=== PATIENT | male | born 1975 | race Caucasian/White ===

== ENCOUNTER 2017-08-25 06:34 | Emergency (ER) | payer SELFPAY ==
[~2017-08-25] VITALS: Ht 175.3 cm; Wt 117.9 kg
[~2017-08-25 06:34] MED LIST: ANTIBIOTIC; CARI250T PO; CPR500T PO; CYCL10TA9 PO; DICY20TA57 PO; HYDR-3714; HYDR1TAB PO; LRT10T; ORPH100T PO; PRD20T PO; PRM25T PO
--- OUTSIDE RECORDS SUMMARY | 2017-08-25 06:43 | XMS REPORT ---
Author Author Wes Ochoa [facility] Address [address] [place], [place] [id number] Care Team Providers Care Rotor Balancer Name Role Phone Wes Ochoa PCP Unavailable Allergies and Adverse Reactions Name Reaction Notes Raspberries Mushroom Aspirin Keflex Vistaril Bactrim DS Plan of Treatment Planned Activity Comments Planned Date Planned Time Plan/Goal recurrent UTI ELECTROCARDIOGRAM COMPLETE 04/26/2014 12:00 AM ELECTROCARDIOGRAM TRACING 04/26/2014 12:00 AM ELECTROCARDIOGRAM REPORT 04/26/2014 12:00 AM ELECTROCARDIOGRAM COMPLETE 05/10/2015 12:00 AM CARDIOVASCULAR STRESS TEST 05/10/2015 12:00 AM Medications Active Name Start Date Estimated Completion Date SIG Comments lisinopril-hydrochlorothiazide 20-12.5 mg oral tablet 12/25/2015 take 1 tablet by oral route once daily Lipitor 40 mg oral tablet 12/27/2015 03/26/2016 take 1 tablet (40 mg) by oral route once daily at bedtime for 30 days levofloxacin 500 mg oral tablet take 1 tablet (500 mg) by oral route once daily for 7 days Name Start Date Expiration Date SIG Comments Macrobid 100 mg oral capsule 01/18/2014 01/25/2014 take 1 capsule (100 mg) by oral route 2 times per day with food for 7 days metformin 1,000 mg oral tablet 01/18/2014 04/18/2014 take 1 tablet (1,000 mg) by oral route 2 times per day with morning and evening meals for 30 days lisinopril-hydrochlorothiazide 20-12.5 mg oral tablet 01/18/2014 04/18/2014 take 1 tablet by oral route once daily for 30 days Lipitor 80 mg oral tablet 01/19/2014 04/19/2014 take 1 tablet (80 mg) by oral route once daily at bedtime for 30 days Levaquin 500 mg oral tablet 02/10/2014 02/17/2014 take 1 tablet (500 mg) by oral route once daily for 7 days gentamicin 0.3 % ophthalmic drops 05/02/2015 05/09/2015 instill 1 drop into affected eye(s) by ophthalmic route every 4 hours for 7 days acyclovir 400 mg oral tablet 05/10/2015 05/17/2015 take 1 tablet by oral route 5 times a day for 7 days omeprazole 40 mg oral capsule,delayed release(DR/EC) 08/08/2015 11/06/2015 take 1 capsule by oral route daily for 30 days lisinopril-hydrochlorothiazide 20-12.5 mg oral tablet 08/08/2015 11/06/2015 take 2 tablets by oral route daily for 30 days Discontinued Name Start Date Discontinued Date SIG Comments gabapentin 300 mg oral capsule 01/18/2014 take 1 capsule by oral route daily lisinopril Oral 01/18/2014 one daily amitriptyline 50 mg oral tablet 01/18/2014 take 1 tablet (50 mg) by oral route once daily at bedtime ranitidine HCl 150 mg oral capsule 01/18/2014 take 1 capsule by oral route 2 times a day cyclobenzaprine 10 mg oral tablet 01/18/2014 take 1 tablet (10 mg) by oral route 3 times per day fenofibrate 160 mg oral tablet 01/18/2014 take 1 tablet (160 mg) by oral route once daily Cipro oral 02/23/2014 fenofibrate oral 05/02/2015 amitriptyline 50 mg oral tablet 02/10/2014 02/23/2014 take 1 tablet (50 mg) by oral route once daily at bedtime topiramate 25 mg oral tablet 02/10/2014 05/02/2015 take 1 tablet (25 mg) by oral route 2 times per day in the morning and evening for 7 days then 2 tablets (50 mg) twice a day Neurontin 300 mg oral capsule 08/24/2014 Mobic 15 mg oral tablet 08/05/2014 08/24/2014 take 1 tablet (15 mg) by oral route once daily cyclobenzaprine 10 mg oral tablet 08/05/2014 08/24/2014 take 1 tablet daily at HS prednisone 10 mg oral tablet 05/10/2015 08/08/2015 [id number](6 tabs) daily for 5 days, then 50mg for 1 day then 40mg for 1 day, then 3omg for 1 day and 20mg for 1 day then 10mg for 1 day Lipitor 20 mg oral tablet 05/16/2015 08/08/2015 take 1 tablet (20 mg) by oral route once daily at bedtime for 30 days Problem List Description Status Onset Hyperlipidemia Active Diabetes with unspecified complication, type II or unspecified type, uncontrolled Active Hypertension Active Neuropathy Active seizures Active Vital Signs Date Time BP-Sys(mm[Hg] BP-Celena(mm[Hg]) HR(bpm) RR(rpm) Temp WT HT HC BMI BSA BMI Percentile O2 Sat(%) 12/27/2015 9:58:00 AM 82 bpm 18 rpm 97.4 F 256 lbs 69 in 37.80 kg/m2 2.38 m2 97 % 12/25/2015 9:35:00 AM 144 mmHg 82 mmHg 75 bpm 18 rpm 97.8 F 256 lbs 69 in 37.8042 kg/m 2.3776 m 97 % 08/08/2015 10:26:00 AM 140 mmHg 80 mmHg 77 bpm 18 rpm 97.5 F 240.375 lbs 69 in 35.50 kg/m2 2.30 m2 96 % 05/10/2015 11:23:00 AM 132 mmHg 66 mmHg 86 bpm 18 rpm 96.8 F 234 lbs 69 in 34.5554 kg/m 2.2732 m 98 % 05/02/2015 1:34:00 PM 142 mmHg 76 mmHg 64 bpm 18 rpm 97.4 F 235.125 lbs 69 in 34.72 kg/m2 2.28 m2 98 % 02/16/2015 3:01:00 PM 130 mmHg 70 mmHg 73 bpm 18 rpm 98 F 231.125 lbs 69 in 34.1308 kg/m 2.2592 m 97 % 08/24/2014 1:44:00 PM 128 mmHg 68 mmHg 67 bpm 18 rpm 95.7 F 219.125 lbs 69 in 32.36 kg/m2 2.20 m2 97 % 08/05/2014 8:59:00 AM 124 mmHg 64 mmHg 62 bpm 18 rpm 96.7 F 227 lbs 69 in 33.5217 kg/m 2.2389 m 100 % 04/26/2014 10:53:00 AM 122 mmHg 82 mmHg 71 bpm 18 rpm 97.2 F 250.5 lbs 69 in 36.992 kg/m 2.35 m2 96 % 02/23/2014 10:00:00 AM 132 mmHg 68 mmHg 94 bpm 18 rpm 96.4 F 247.125 lbs 69 in 36.49 kg/m2 2.3361 m 98 % 02/10/2014 9:32:00 AM 128 mmHg 80 mmHg 94 bpm 20 rpm 97.1 F 245.5 lbs 69 in 36.2536 kg/m 2.33 m2 95 % 01/18/2014 8:59:00 AM 148 mmHg 84 mmHg 79 bpm 18 rpm 97.6 F 247 lbs 68 in 37.56 kg/m2 2.3185 m 96 % 02/05/2012 10:01:00 AM 120 mmHg 80 mmHg 75 bpm 18 rpm 97.4 F 253 lbs 68 in 38.4681 kg/m 2.35 m2 95 % 01/27/2012 10:44:00 AM 106 mmHg 70 mmHg 80 bpm 18 rpm 96.7 F 255 lbs 68 in 38.77 kg/m2 2.3557 m 96 % 01/22/2012 1:21:00 PM 117 mmHg 88 mmHg 104 bpm 20 rpm 97.8 F 254 lbs 68 in 38.6202 kg/m 2.35 m2 Social History Name Description Comments Tobacco Current every day smoker History of Procedures Date Ordered Description Order Status 08/08/2015 12:00 AM FIBRIN DEGRADATION QUANT Returned 12/25/2015 10:35 AM URINALYSIS AUTO W/O SCOPE Reviewed 12/25/2015 12:00 AM COMPLETE CBC W/AUTO DIFF WBC Returned 12/25/2015 12:00 AM COMPREHEN METABOLIC PANEL Returned 12/25/2015 12:00 AM LIPID PANEL Returned 12/25/2015 12:00 AM GLYCOSYLATED HEMOGLOBIN TEST Returned 12/25/2015 12:00 AM Rocephin 1 gram [facility]#[id number] Reviewed 12/25/2015 12:00 AM THER/PROPH/DIAG INJ SC/IM Reviewed 01/18/2014 12:00 AM COMPLETE CBC W/AUTO DIFF WBC Returned 01/18/2014 12:00 AM COMPREHEN METABOLIC PANEL Returned 01/18/2014 12:00 AM LIPID PANEL Returned 01/18/2014 12:00 AM Prostate Cancer Screening PSA Returned 01/18/2014 12:00 AM URINALYSIS AUTO W/SCOPE Returned 01/18/2014 12:00 AM GLYCOSYLATED HEMOGLOBIN TEST Returned 02/10/2014 12:00 AM MRI BRAIN STEM W/O & W/DYE Returned 02/23/2014 12:00 AM CHYLMD TRACH DNA AMP PROBE Returned 02/23/2014 12:00 AM N.GONORRHOEAE DNA AMP PROB Returned 02/23/2014 12:00 AM URINALYSIS AUTO W/O SCOPE Reviewed 04/26/2014 12:00 AM COMPLETE CBC W/AUTO DIFF WBC Returned 04/26/2014 12:00 AM COMPREHEN METABOLIC PANEL Returned 04/26/2014 12:00 AM CHEST X-RAY 2VW FRONTAL&LATL Returned 04/26/2014 12:00 AM ASSAY OF TROPONIN QUANT Returned 04/26/2014 12:00 AM HT MUSCLE IMAGE SPECT MULT Returned 05/10/2015 12:00 AM COMPLETE CBC W/AUTO DIFF WBC Returned 05/10/2015 12:00 AM COMPREHEN METABOLIC PANEL Returned 05/10/2015 12:00 AM GLYCOSYLATED HEMOGLOBIN TEST Returned 05/10/2015 12:00 AM ASSAY OF TROPONIN QUANT Returned 05/10/2015 12:00 AM LIPID PANEL Returned Results Summary Data and Description Results 01/30/2012 10:51 AM GLUCOSE POCT 91.0 mg/dL 01/18/2014 9:40 AM PSA TOTAL 0.410 ng/mLWBC 7.4 RBC 5.52 HGB 15.50 g/dLHCT 45.60 %MCV 83.0 fLMCH 28.10 pgMCHC 34.0 g/dLRDW CV 13.50 %MPV 10.40 fLPLT 245 % NEUT 54.50 %%LYMP 30.60 %%MONO 11.40 %%EOS 3.0 %%BASO 0.50 %#NEUT 4.01 #LYMP 2.25 #MONO 0.84 #EOS 0.22 #BASO 0.04 GLUCOSE 150.0 mg/dLSODIUM 138.0 mmol/ LPOTASSIUM 4.10 mmol/LCHLORIDE 107.0 mmol/LCO2 20.0 mmol/LBUN 12.0 mg/ dLCREATININE 0.90 mg/dLSGOT/AST 20.0 IU/LSGPT/ALT 26.0 IU/LALK PHOS 75.0 IU/ LTOTAL PROTEIN 7.50 g/dLALBUMIN 4.0 g/dLTOTAL BILI 0.50 mg/dLCALCIUM 9.0 mg/ dLeGFR >60 mL/min/1.73 [id number] YELLOW APPEARANCE CLEAR SPEC GRAV 1.020 pH 6.0 PROTEIN NEGATIVE GLUCOSE NEGATIVE KETONE NEGATIVE BILIRUBIN NEGATIVE BLOOD NEGATIVE NITRITE NEGATIVE LEUK SCREEN NEGATIVE CASTS/LPF NEGATIVE CRYSTALS NEGATIVE MUCOUS THRDS NEGATIVE BACTERIA FEW EPITH CELLS FEW SQUAMOUS TRICHOMONAS NEGATIVE YEAST NEGATIVE TRIGLYCERIDES 615.0 mg/dLCHOLESTEROL 214.0 mg/dLHDL 42.0 mg/dLLDL (CALC) INVALID MG/DLEst Avg Glucose 111.2 mg/dL 02/23/2014 10:32 AM Chlamydia trachomatis,LUC Negative Neisseria gonorrhoeae, LUC Negative 04/26/2014 11:55 AM TROPONIN-I AD <0.04 ng/mLWBC 7.0 RBC 5.41 HGB 15.40 g/ dLHCT 45.10 %MCV 83.0 fLMCH 28.50 pgMCHC 34.10 g/dLRDW CV 13.60 %MPV 10.50 fLPLT 243 %NEUT 54.40 %%LYMP 33.70 %%MONO 9.0 %%EOS 2.60 %%BASO 0.30 %#NEUT 3.82 #LYMP 2.36 #MONO 0.63 #EOS 0.18 #BASO 0.02 GLUCOSE 114.0 mg/dLSODIUM 140.0 mmol/LPOTASSIUM 4.0 mmol/LCHLORIDE 105.0 mmol/LCO2 23.0 mmol/LBUN 15.0 mg/ dLCREATININE 0.80 mg/dLSGOT/AST 17.0 IU/LSGPT/ALT 19.0 IU/LALK PHOS 71.0 IU/ LTOTAL PROTEIN 7.40 g/dLALBUMIN 4.10 g/dLTOTAL BILI 0.50 mg/dLCALCIUM 9.40 mg/ dLeGFR 60 05/10/2015 12:05 PM WBC 7.2 RBC 5.27 HGB 15.10 g/dLHCT 44.80 %MCV 85.0 fLMCH 28.70 pgMCHC 33.70 g/dLRDW CV 13.60 %MPV 10.0 fLPLT 222 %NEUT 50.50 %%LYMP 34.30 %%MONO 11.20 %%EOS 3.60 %%BASO 0.40 %#NEUT 3.65 #LYMP 2.48 #MONO 0.81 # EOS 0.26 #BASO 0.03 GLUCOSE 85.0 mg/dLSODIUM 139.0 mmol/LPOTASSIUM 4.10 mmol/ LCHLORIDE 109.0 mmol/LCO2 21.0 mmol/LBUN 13.0 mg/dLCREATININE 0.80 mg/dLSGOT/ AST 15.0 IU/LSGPT/ALT 20.0 IU/LALK PHOS 67.0 IU/LTOTAL PROTEIN 7.30 g/dLALBUMIN 4.0 g/dLTOTAL BILI 0.40 mg/dLCALCIUM 9.20 mg/dLeGFR >60 mL/min/1.73 [id number] AD <0.04 ng/mLEst Avg Glucose 131.2 mg/dL 05/15/2015 8:15 AM TRIGLYCERIDES 260.0 mg/dLCHOLESTEROL 184.0 mg/dLHDL 35.0 mg/ dLLDL (CALC) 97.0 mg/dL 08/08/2015 11:00 AM D-DIMER QUANT 0.46 12/25/2015 10:35 AM Clarity Ur cloudy Color Ur dk yellow Glucose Ur-sCnc >= 1000mg/dL Bilirub Ur Ql Strip neg Ketones Ur Ql Strip neg Sp Gr Ur Qn 1.01 Hgb Ur Ql Strip trace-lysed pH Ur-LsCnc 7.0 Prot Ur Ql Strip Trace Urobilinogen Ur- mCnc 0.2. E.U /dL Nitrite Ur Ql Strip positive WBC Est Ur Ql Strip large 12/26/2015 5:23 AM WBC 9.2 RBC 5.53 HGB 15.60 g/dLHCT 47.10 %MCV 85.0 fLMCH 28.20 pgMCHC 33.10 g/dLRDW CV 13.60 %MPV 9.90 fLPLT 253 %NEUT 56.40 %%LYMP 30.70 %%MONO 9.20 %%EOS 3.30 %%BASO 0.40 %#NEUT 5.17 #LYMP 2.81 #MONO 0.84 #EOS 0.30 #BASO 0.04 TRIGLYCERIDES 411.0 mg/dLCHOLESTEROL 211.0 mg/dLHDL 36.0 mg/ dLLDL (CALC) INVALID mg/dLGLUCOSE 116.0 mg/dLSODIUM 138.0 mmol/LPOTASSIUM 4.30 mmol/LCHLORIDE 107.0 mmol/LCO2 24.0 mmol/LBUN 15.0 mg/dLCREATININE 0.90 mg/ dLSGOT/AST 18.0 IU/LSGPT/ALT 23.0 IU/LALK PHOS 74.0 IU/LTOTAL PROTEIN 7.10 g/ dLALBUMIN 4.20 g/dLTOTAL BILI 0.40 mg/dLCALCIUM 9.20 mg/dLeGFR >60 mL/min/1.73m History Of Immunizations Not available. History of Past Illness Name Date of Onset Comments Hypertension seizures Neuropathy Hyperlipidemia Diabetes with unspecified complication, type II or unspecified type, uncontrolled Abdominal pain, RUQ Jan 22 2012 1:25PM Postoperative Follow-up: Cholecystectomy Feb 05 2012 10:06AM Biliary Dyskinesia Jan 27 2012 10:48AM Hypertension Jan 18 2014 9:01AM Hyperlipidemia, unspecified Jan 18 2014 9:01AM Dysuria Jan 18 2014 9:01AM Screening For Prostate Cancer Jan 18 2014 9:01AM Glycosuria Jan 18 2014 3:44PM Seizure Disorder Feb 10 2014 9:39AM Headache Feb 10 2014 9:39AM Dysuria Feb 23 2014 10:03AM Headache Feb 23 2014 10:03AM Fatigue Feb 23 2014 10:03AM Chest pain Apr 26 2014 10:58AM Dyspnea on exertion Apr 26 2014 10:58AM Rib pain Aug 05 2014 9:01AM Headache Aug 24 2014 1:46PM Black-out (not amnesia) Aug 24 2014 1:46PM Gastroenteritis Feb 16 2015 3:03PM Acute Bilateral Conjunctivitis May 02 2015 1:36PM Chest pain May 10 2015 11:24AM Numbness May 10 2015 11:24AM Elevated glucose May 10 2015 11:24AM Chest pain May 10 2015 3:07PM Chest pain Aug 08 2015 10:28AM Snoring Aug 08 2015 10:28AM Hypertension Dec 25 2015 9:37AM Hyperlipidemia, unspecified Dec 25 2015 9:37AM Glucosuria Dec 25 2015 9:37AM Acute cystitis with hematuria Dec 25 2015 9:37AM Payers Insurance Name Company Name Plan Name Plan Number Policy Number Policy Group Number Start Date BCBS [facility] [id number] N/A [facility] [id number] N/A [facility] Comm [id number] Saturday, 2012 [facility] Plan of [id number] N/A History of Encounters Visit Date Visit Type Provider 12/27/2015 Office visit Wes Ochoa MD 12/25/2015 Office visit Trena Walker PURCHASING ANALYST 08/08/2015 Office visit Trena Walker PURCHASING ANALYST 05/10/2015 Office visit Trena Walker PURCHASING ANALYST 05/02/2015 Office visit Trena Walker PURCHASING ANALYST 02/16/2015 Office visit Trena Walker PURCHASING ANALYST 08/24/2014 Office visit Trena Walker PURCHASING ANALYST 08/05/2014 Office visit Trena Walker PURCHASING ANALYST 04/26/2014 [facility] Oliverio Matias MD 04/26/2014 Office visit Trena Walker PURCHASING ANALYST 02/23/2014 Office visit Trena Walker PURCHASING ANALYST 02/10/2014 Office visit Leno Hernandez DO 01/18/2014 Office visit Trena Arora PURCHASING ANALYST 02/05/2012 Office visit Bryan Tracy MD 01/30/2012 [facility] Bryan Tracy MD 01/27/2012 Office visit Bryan Tracy MD 01/22/2012 Office visit Bryan Tracy MD 01/02/2012 [facility] Oliverio Matias MD 05/09/2011 [facility] Oliverio Matias MD 10/22/2010 [facility] Lashonda Abdalla MD
--- OUTSIDE RECORDS SUMMARY | 2017-08-25 06:44 | XMS REPORT ---
Author Author Arturo Benitez [facility] Address [address] [place], [place] [id number] Care Team Providers Care Perfusionist Name Role Phone Arturo Benitez PCP Unavailable Allergies and Adverse Reactions Name [...] 1 tablet by oral route once daily ibuprofen 800 mg oral tablet 05/17/2016 take 1 tablet (800 mg) by oral route 3 times per day with food [place] 10-325 mg oral tablet 08/15/2016 take 1 tablet by oral route every 6 hours as needed for pain Name Start Date Expiration Date SIG Comments [...] by oral route daily for 30 days Lipitor 40 mg oral tablet 12/27/2015 03/26/2016 take 1 tablet (40 mg) by oral route once daily at bedtime for 30 days Ambien 10 mg oral tablet 03/14/2016 05/13/2016 take 1 tablet (10 mg) by oral route once daily at bedtime for 30 days prednisone 20 mg oral tablet 05/17/2016 05/24/2016 take 2 tablets (40 mg) by oral route once daily for 7 days Discontinued Name Start Date Discontinued Date [...] prednisone 10 mg oral tablet 05/10/2015 08/08/2015 [id number](6 tabs) daily for 5 days, then 50mg for 1 day then 40mg for 1 day, then 3omg for 1 day and 20mg for 1 day then 10mg for 1 day Lipitor 20 mg oral tablet 05/16/2015 08/08/2015 take 1 tablet (20 mg) by oral route once daily at bedtime for 30 days levofloxacin 500 mg oral tablet 03/14/2016 take 1 tablet (500 mg) by oral route once daily for 7 days Problem List Description Status Onset Hyperlipidemia Active Diabetes with unspecified complication, type II or unspecified type, uncontrolled Active Hypertension Active Neuropathy Active seizures Active Vital Signs Date Time BP-Sys(mm[Hg] BP-Celena(mm[Hg]) HR(bpm) RR(rpm) Temp WT HT HC BMI BSA BMI Percentile O2 Sat(%) 08/15/2016 10:20:00 AM 144 mmHg 90 mmHg 64 bpm 18 rpm 97.6 F 266 lbs 69 in 39.28 kg/m2 2.42 m2 96 % 06/21/2016 9:47:00 AM 138 mmHg 84 mmHg 85 bpm 18 rpm 96.6 F 256 lbs 69 in 37.8042 kg/m 2.3776 m 97 % 05/17/2016 8:51:00 AM 148 mmHg 80 mmHg 72 bpm 18 rpm 97.2 F 250 lbs 69 in 36.92 kg/m2 2.35 m2 96 % 03/14/2016 2:01:00 PM 132 mmHg 84 mmHg 78 bpm 16 rpm 98.8 F 250 lbs 69 in 36.9182 kg/m 2.3496 m 95 % 02/13/2016 1:41:00 PM 150 mmHg 90 mmHg 78 bpm 18 rpm 97.1 F 252 lbs 69 in 37.21 kg/m2 2.36 m2 96 % 12/27/2015 9:58:00 AM 82 bpm 18 rpm 97.4 F 256 lbs 69 in 37.8042 kg/m 2.3776 m 97 % 12/25/2015 9:35:00 AM 144 mmHg 82 mmHg 75 bpm 18 rpm 97.8 F 256 lbs 69 in 37.80 kg/m2 2.38 m2 97 % 08/08/2015 10:26:00 AM 140 mmHg 80 mmHg 77 bpm 18 rpm 97.5 F 240.375 lbs 69 in 35.4968 kg/m 2.3039 m 96 % 05/10/2015 11:23:00 AM 132 mmHg 66 mmHg 86 bpm 18 rpm 96.8 F 234 lbs 69 in 34.56 kg/m2 2.27 m2 98 % 05/02/2015 1:34:00 PM 142 mmHg 76 mmHg 64 bpm 18 rpm 97.4 F 235.125 lbs 69 in 34.7215 kg/m 2.2786 m 98 % 02/16/2015 3:01:00 PM 130 mmHg 70 mmHg 73 bpm 18 rpm 98 F 231.125 lbs 69 in 34.13 kg/m2 2.26 m2 97 % 08/24/2014 1:44:00 PM 128 mmHg 68 mmHg 67 bpm 18 rpm 95.7 F 219.125 lbs 69 in 32.3588 kg/m 2.1997 m 97 % 08/05/2014 8:59:00 AM 124 mmHg 64 mmHg 62 bpm 18 rpm 96.7 F 227 lbs 69 in 33.52 kg/m2 2.24 m2 100 % 04/26/2014 10:53:00 AM 122 mmHg 82 mmHg 71 bpm 18 rpm 97.2 F 250.5 lbs 69 in 36.992 kg/m 2.3519 m 96 % 02/23/2014 10:00:00 AM 132 mmHg 68 mmHg 94 bpm 18 rpm 96.4 F 247.125 lbs 69 in 36.49 kg/m2 2.34 m2 98 % 02/10/2014 9:32:00 AM 128 mmHg 80 mmHg 94 bpm 20 rpm 97.1 F 245.5 lbs 69 in 36.2536 kg/m 2.3284 m 95 % 01/18/2014 8:59:00 AM 148 mmHg 84 mmHg 79 bpm 18 rpm 97.6 F 247 lbs 68 in 37.56 kg/m2 2.32 m2 96 % 02/05/2012 10:01:00 AM 120 mmHg 80 mmHg 75 bpm 18 rpm 97.4 F 253 lbs 68 in 38.4681 kg/m 2.3465 m 95 % 01/27/2012 10:44:00 AM 106 mmHg 70 mmHg 80 bpm 18 rpm 96.7 F 255 lbs 68 in 38.77 kg/m2 2.36 m2 96 % 01/22/2012 1:21:00 PM 117 mmHg 88 mmHg 104 bpm 20 rpm 97.8 F 254 lbs 68 in 38.6202 kg/m 2.3511 m Social History Name Description Comments Tobacco Current [...] Returned 12/25/2015 12:00 AM Rocephin 1 gram [facility]#[id number] Reviewed 12/25/2015 12:00 AM THER/PROPH/DIAG INJ SC/IM Reviewed 02/13/2016 12:00 AM CHEST X-RAY 2VW FRONTAL&LATL Reviewed 03/14/2016 12:00 AM X-RAY EXAM L-S SPINE 2/3 VWS Returned 01/18/2014 12:00 AM COMPLETE CBC W/AUTO DIFF [...] 0.50 mg/dLCALCIUM 9.0 mg/ dLeGFR >60 mL/min/1.73 [id number] YELLOW APPEARANCE CLEAR SPEC GRAV 1.020 pH [...] BILI 0.40 mg/dLCALCIUM 9.20 mg/dLeGFR >60 mL/min/1.73 [id number] I AD <0.04 ng/mLEst Avg Glucose 131.2 [...] cystitis with hematuria Dec 25 2015 9:37AM Thoracic back pain Feb 13 2016 1:51PM Pneumonia Feb 13 2016 1:51PM Insomnia, unspecified Mar 14 2016 2:05PM Low Back Pain Mar 14 2016 2:05PM Low Back Pain May 17 2016 8:56AM Hypertension Jun 21 2016 9:52AM Low Back Pain Jun 21 2016 9:52AM Seizure Disorder Jun 21 2016 9:52AM Low Back Pain Aug 15 2016 10:23AM Payers Insurance Name Company Name Plan Name Plan Number Policy Number Policy Group Number Start Date zzzTest Medicare A Test Medicare A [id number] N/A [facility] [id number] Saturday, 2012 [facility] Plan of [id number] N/A BCBS [facility] [id number] N/A History of Encounters Visit Date Visit Type Provider 08/15/2016 Office visit Arturo Benitez MD 07/07/2016 [facility] Daly Matias MD 06/21/2016 Office visit Arturo Benitez MD 05/17/2016 Office visit Arturo Benitez MD 05/02/2016 Hospital Oliverio Matias MD 03/14/2016 Office visit Arturo Benitez MD 02/13/2016 Office visit Arturo Benitez MD 01/08/2016 Hospital Wes Ochoa MD 12/27/2015 Office visit Wes Ochoa MD 12/25/2015 Office visit Trena Arora PHARMACY TECHNICIAN INSTRUCTOR 08/08/2015 Office visit Trena Walker PHARMACY TECHNICIAN INSTRUCTOR 05/10/2015 Office visit Trena Walker PHARMACY TECHNICIAN INSTRUCTOR 05/02/2015 Office visit Trena Walker PHARMACY TECHNICIAN INSTRUCTOR 02/16/2015 Office visit Trena Walker PHARMACY TECHNICIAN INSTRUCTOR 08/24/2014 Office visit Trena Walker PHARMACY TECHNICIAN INSTRUCTOR 08/05/2014 Office visit Trena Walker PHARMACY TECHNICIAN INSTRUCTOR 04/26/2014 [facility] Oliverio Matias MD 04/26/2014 Office visit Trena Walker PHARMACY TECHNICIAN INSTRUCTOR 02/23/2014 Office visit Trena Walker PHARMACY TECHNICIAN INSTRUCTOR 02/10/2014 Office visit Leno Hernandez DO 01/18/2014 Office visit Trena Arora PHARMACY TECHNICIAN INSTRUCTOR 02/05/2012 Office visit Bryan Tracy MD 01/30/2012 Hospital Bryan Tracy MD 01/27/2012 Office visit Bryan Tracy MD 01/22/2012 Office visit Bryan Tracy MD 01/02/2012 Hospital Oliverio Matias MD 05/09/2011 Hospital Oliverio Matias MD 10/22/2010 [facility] Lashonda Abdalla MD
--- OUTSIDE RECORDS SUMMARY | 2017-08-25 06:44 | XMS REPORT ---
Author Author Wes Ochoa [facility] Address [address] [place], [place] [id number] Care Team Providers Care Design Printing Machine Setter Name Role Phone Wes Ochoa PCP Unavailable [...] prednisone 10 mg oral tablet 05/10/2015 08/08/2015 [id number](6 tabs) daily for 5 days, then 50mg [...] Returned 12/25/2015 12:00 AM Rocephin 1 gram [facility]#[id number] Reviewed 12/25/2015 12:00 AM THER/PROPH/DIAG INJ SC/IM [...] 0.50 mg/dLCALCIUM 9.0 mg/ dLeGFR >60 mL/min/1.73 [id number] YELLOW APPEARANCE CLEAR SPEC GRAV 1.020 pH [...] BILI 0.40 mg/dLCALCIUM 9.20 mg/dLeGFR >60 mL/min/1.73 [id number] I AD <0.04 ng/mLEst Avg Glucose 131.2 [...] Number Policy Group Number Start Date BCBS [facility] [id number] N/A [facility] [id number] N/A [facility] Comm [id number] Saturday, 2012 [facility] Plan of [id number] N/A History of Encounters Visit Date Visit Type Provider 12/27/2015 Office visit Wes Ochoa MD 12/25/2015 Office visit Trena Walker ANGULAR JS DEVELOPER 08/08/2015 Office visit Trena Walker ANGULAR JS DEVELOPER 05/10/2015 Office visit Trena Walker ANGULAR JS DEVELOPER 05/02/2015 Office visit Trena Walker ANGULAR JS DEVELOPER 02/16/2015 Office visit Trena Walker ANGULAR JS DEVELOPER 08/24/2014 Office visit Trena Walker ANGULAR JS DEVELOPER 08/05/2014 Office visit Trena Walker ANGULAR JS DEVELOPER 04/26/2014 [facility] Oliverio Matias MD 04/26/2014 Office visit Trena Walker ANGULAR JS DEVELOPER 02/23/2014 Office visit Trena Walker ANGULAR JS DEVELOPER 02/10/2014 Office visit Leno Hernandez DO 01/18/2014 Office visit Trena Arora ANGULAR JS DEVELOPER 02/05/2012 Office visit Bryan Tracy MD 01/30/2012 [facility] Bryan Tracy MD 01/27/2012 Office visit Bryan Tracy MD 01/22/2012 Office visit Bryan Tracy MD 01/02/2012 [facility] Oliverio Matias MD 05/09/2011 [facility] Oliverio Matias MD 10/22/2010 [facility] Lashonda Abdalla MD
--- OUTSIDE RECORDS SUMMARY | 2017-08-25 06:45 | XMS REPORT ---
Author Author [facility] Organization [facility] Address [address] [place], [place] [id number] Care Team Providers Care Research Analyst Name Role Phone PCP Unavailable Allergies and Adverse Reactions Name Reaction Notes Raspberries Mushroom Aspirin Keflex Vistaril Bactrim DS Plan of Treatment Planned Activity Comments Planned Date Planned Time Plan/Goal GLYCOSYLATED HEMOGLOBIN TEST 05/10/2015 12:00 AM LIPID PANEL 05/10/2015 12:00 AM Medications Active Name Start Date Estimated Completion Date SIG Comments acyclovir oral tablet 400 mg 05/10/2015 05/17/2015 take 1 tablet by oral route 5 times a day for 7 days prednisone oral tablet 10 mg 05/10/2015 [id number](6 tabs) daily for 5 days, then 50mg for 1 day then 40mg for 1 day, then 3omg for 1 day and 20mg for 1 day then 10mg for 1 day Name Start Date Expiration Date SIG Comments Macrobid oral capsule 100 mg 01/18/2014 01/25/2014 take 1 capsule (100 mg) by oral route 2 times per day with food for 7 days metformin oral tablet 1,000 mg 01/18/2014 04/18/2014 take 1 tablet (1,000 mg) by oral route 2 times per day with morning and evening meals for 30 days lisinopril-hydrochlorothiazide oral tablet 20-12.5 mg 01/18/2014 04/18/2014 take 1 tablet by oral route once daily for 30 days Lipitor oral tablet 80 mg 01/19/2014 04/19/2014 take 1 tablet (80 mg) by oral route once daily at bedtime for 30 days Levaquin oral tablet 500 mg 02/10/2014 02/17/2014 take 1 tablet (500 mg) by oral route once daily for 7 days gentamicin ophthalmic drops 0.3 % 05/02/2015 05/09/2015 instill 1 drop into affected eye(s) by ophthalmic route every 4 hours for 7 days Discontinued Name Start Date Discontinued Date SIG Comments gabapentin Oral Capsule 300 mg 01/18/2014 take 1 capsule by oral route daily lisinopril Oral 01/18/2014 one daily amitriptyline Oral Tablet 50 mg 01/18/2014 take 1 tablet (50 mg) by oral route once daily at bedtime ranitidine HCl Oral Capsule 150 mg 01/18/2014 take 1 capsule by oral route 2 times a day cyclobenzaprine Oral Tablet 10 mg 01/18/2014 take 1 tablet (10 mg) by oral route 3 times per day fenofibrate Oral Tablet 160 mg 01/18/2014 take 1 tablet (160 mg) by oral route once daily Cipro oral 02/23/2014 fenofibrate oral 05/02/2015 amitriptyline oral tablet 50 mg 02/10/2014 02/23/2014 take 1 tablet (50 mg) by oral route once daily at bedtime topiramate oral tablet 25 mg 02/10/2014 05/02/2015 take 1 tablet (25 mg) by oral route 2 times per day in the morning and evening for 7 days then 2 tablets (50 mg) twice a day Neurontin oral capsule 300 mg 08/24/2014 Mobic oral tablet 15 mg 08/05/2014 08/24/2014 take 1 tablet (15 mg) by oral route once daily cyclobenzaprine oral tablet 10 mg 08/05/2014 08/24/2014 take 1 tablet daily at HS Problem List Description Status Onset Hyperlipidemia Active Diabetes with unspecified complication, type II or unspecified type, uncontrolled Active Hypertension Active Neuropathy Active seizures Active Vital Signs Date Time BP-Sys(mm[Hg] BP-Celena(mm[Hg]) HR(bpm) RR(rpm) Temp WT HT HC BMI BSA BMI Percentile O2 Sat(%) 05/10/2015 11:23:00 AM 132 mmHg 66 mmHg [...] of Procedures Date Ordered Description Order Status 01/18/2014 12:00 AM COMPLETE CBC W/AUTO DIFF WBC Returned 01/18/2014 12:00 AM COMPREHEN METABOLIC PANEL Returned 01/18/2014 12:00 AM LIPID PANEL Returned 01/18/2014 12:00 AM URINALYSIS AUTO W/SCOPE [...] COMPREHEN METABOLIC PANEL Returned 05/10/2015 12:00 AM ASSAY OF TROPONIN QUANT Returned Results Summary Data and Description Results [...] 0.50 mg/dLCALCIUM 9.0 mg/ dLeGFR >60 mL/min/1.73 [id number] YELLOW APPEARANCE CLEAR SPEC GRAV 1.020 pH 6.0 PROTEIN NEGATIVE GLUCOSE NEGATIVE KETONE NEGATIVE BILIRUBIN NEGATIVE BLOOD NEGATIVE NITRITE NEGATIVE LEUK SCREEN NEGATIVE CASTS/LPF NEGATIVE CRYSTALS NEGATIVE MUCOUS THRDS NEGATIVE BACTERIA FEW EPITH CELLS FEW SQUAMOUS TRICHOMONAS NEGATIVE YEAST NEGATIVE TRIGLYCERIDES 615.0 mg/dLCHOLESTEROL 214.0 mg/dLHDL 42.0 mg/dLLDL (CALC) INVALID MG/DLHGB A1C 5.50 % 02/23/2014 10:32 AM Chlamydia trachomatis,LUC Negative 04/26/2014 11:55 AM TROPONIN-I AD <0.04 [...] BILI 0.40 mg/dLCALCIUM 9.20 mg/dLeGFR >60 mL/min/1.73 [id number] AD <0.04 ng/mL History Of Immunizations Not available. History of [...] 11:24AM Chest pain May 10 2015 3:07PM Payers Insurance Name Company Name Plan Name Plan Number Policy Number Policy Group Number Start Date [facility] Comm [id number] Saturday, 2012 [facility] Comm Plan of [id number] N/A [facility] [id number] N/A History of Encounters Visit Date Visit Type Provider 05/10/2015 Office visit Trena Arora APRN 05/02/2015 Office visit Trena Arora APRN 02/16/2015 Office visit Trena Arora APRN 08/24/2014 Office visit Trena Arora APRN 08/05/2014 Office visit Trena Arora APRN 04/26/2014 Office visit Trena Arora APRN 04/26/2014 [facility] Oliveiro Matias MD 02/23/2014 Office visit Trena Arora EMBLEM MAKER 02/10/2014 Office visit Leno Hernandez DO 01/18/2014 Office visit Trena Arora EMBLEM MAKER 02/05/2012 Office visit Bryan Tracy MD 01/30/2012 [facility] Bryan Tracy MD 01/27/2012 Office visit Bryan Tracy MD 01/22/2012 Office visit Bryan Tracy MD 01/02/2012 [facility] Oliverio Matias MD 05/09/2011 [facility] Oliverio Matias MD 10/22/2010 [facility] Lashonda Abdalla MD
--- OUTSIDE RECORDS SUMMARY | 2017-08-25 06:46 | XMS REPORT | CCD ---
Author Author JAKY TYLER Organization Unknown Address [address] [place], [place] [id number] Care Team Providers Care Crabber Name Role Phone Wes SPENCER MD Attphys Vital Signs Vital Sign Value Unit Date/Time Recent/Initial? Weight Measured 250 lbs 01/05/2016 11:57 Initial VS Height 69 in 01/05/2016 11:57 Initial VS BMI (Body Mass Index) 36.92 kg/m^2 01/05/2016 11:57 Initial VS BSA (Body Surface Area) 2.35 m^2 01/05/2016 11:57 Initial VS BP Systolic 136 mmHg 01/08/2016 11:33 Initial VS BP Diastolic 80 mmHg 01/08/2016 11:33 Initial VS Respiratory Rate 30 bpm 01/08/2016 11:33 Initial VS Heart Rate 76 bpm 01/08/2016 11:33 Initial VS O2 % BldC Oximetry 90 % 01/08/2016 11:33 Initial VS BP Systolic 140 mmHg 01/08/2016 11:59 Most Recent VS BP Diastolic 90 mmHg 01/08/2016 11:59 Most Recent VS Respiratory Rate 20 bpm 01/08/2016 11:59 Most Recent VS Heart Rate 82 bpm 01/08/2016 11:59 Most Recent VS O2 % BldC Oximetry 95 % 01/08/2016 11:59 Most Recent VS Allergies Allergy Code Allergy Type Reaction Status CEPHALEXIN 2231 Drug allergy SOB QUIT BREATHING Active RASPBERRY 0 Food allergy Active VISTARIL 282991 Drug allergy Active KEFLEX 060791 Drug allergy Active HYDROXYZINE 5553 Drug allergy BECAME VIOLENT Active ASPIRIN 1191 Drug allergy SOB QUIT BREATHING Active blueberry {Clinical monitoring unavailable} 0 Food allergy Active mushrooms {Clinical monitoring unavailable} 0 Food allergy Active BACTRIM 071543 Drug allergy Active Procedures Procedure Code Procedure Type Date Cystourethroscopy, with calibration and/or dilation of urethral stricture 25608 CPT 01/08/2016 BEDSIDE GLUCOSE [id number] SNOMED CT 01/08/2016 History of Immunizations Immunization Code Date Influenza, seasonal, injectable 141 08/20/2013 Problems Unknown or Not Available. Results BEDSIDE GLUCOSE - Collect Date/Time: 01/08/2016 09:07 Test Name Code Test Result Test Units Test Ref Range GLUCOSE POCT 93 MG/DL L=70 H=100 Active Medications No Active Medications Medications Administered During Visit Unknown or Not Available. Encounters Encounter Diagnosis Diagnosis Code Start Date Retention of urine, unspecified R339 01/08/2016 Social History Smoking Status Code Start Date End Date Never smoker [id number] Patient Decision Aids Patient Decision Aid CYSTOSCOPY; AFTER THE PROCEDURE Discharge Instructions You were admitted to [facility] on 01/08/2016 07:58 with a principal diagnosis of Retention of urine, unspecified You had the following procedures done: Cystourethroscopy, with calibration and/or dilation of urethral stricture You had the following tests done: BEDSIDE GLUCOSE You were discharged from [facility] on 01/08/2016 12:44 Should you have any questions prior to discharge, please contact a member of your healthcare team. If you have left the hospital and have any questions, please contact your primary care physician. Chief Complaint and Reason For Visit Chief Complaint Date of Onset CYSTO RTG Function Status Unknown or Not Available. Plan of Care Unknown or Not Available. Referral/Transition of Care Unknown or Not Available.
--- OUTSIDE RECORDS SUMMARY | 2017-08-25 06:46 | XMS REPORT ---
Author Author Arturo Benitez [facility] Address [address] [place], [place] [address] Care Team Providers Care Therapeutic Recreation Assistant Name Role Phone Arturo Benitez PCP Unavailable Arturo Benitez PreferredProvider Unavailable Allergies and Adverse Reactions Name Reaction Notes Raspberries Mushroom Aspirin Keflex Vistaril Bactrim DS Plan of Treatment Planned Activity Comments Planned Date Planned Time Plan/Goal recurrent UTI 12 lead EKG 04/26/2014 12:00 AM 12 lead EKG 04/26/2014 12:00 AM 12 lead EKG 04/26/2014 12:00 AM EKG (12-lead electrocardiogram) 05/10/2015 12:00 AM Treadmill 05/10/2015 12:00 AM Medications Active Name Start Date Estimated Completion Date SIG Comments lisinopril-hydrochlorothiazide 20-12.5 mg oral tablet 12/25/2015 take 1 tablet by oral route once daily ibuprofen 800 mg oral tablet 05/17/2016 take 1 tablet (800 mg) by oral route 3 times per day with food [place] 10-325 mg oral tablet 12/11/2016 take 1 tablet by oral route every [...] prednisone 10 mg oral tablet 05/10/2015 08/08/2015 [id number](6 tabs) daily for 5 days, then 50mg [...] HC BMI BSA BMI Percentile O2 Sat(%) 12/11/2016 8:24:00 AM 132 mmHg 90 mmHg 68 bpm 18 rpm 255 lbs 69 in 37.66 kg/m2 2.37 m2 96 % 09/13/2016 9:52:00 AM 136 mmHg 86 mmHg 77 bpm 18 rpm 97.3 F 263 lbs 69 in 38.8379 kg/m 2.4099 m 96 % 08/15/2016 10:20:00 AM 144 mmHg 90 mmHg [...] Status 08/08/2015 12:00 AM FIBRIN DEGRADATION QUANT Reviewed 12/25/2015 10:35 AM URINALYSIS AUTO W/O SCOPE Reviewed 12/25/2015 12:00 AM COMPLETE CBC W/AUTO DIFF WBC Reviewed 12/25/2015 12:00 AM COMPREHEN METABOLIC PANEL Reviewed 12/25/2015 12:00 AM LIPID PANEL Reviewed 12/25/2015 12:00 AM GLYCOSYLATED HEMOGLOBIN TEST Reviewed 12/25/2015 12:00 AM Rocephin 1 gram [facility]#[id number] Reviewed 12/25/2015 12:00 AM THER/PROPH/DIAG INJ SC/IM Reviewed 02/13/2016 12:00 AM CHEST X-RAY 2VW FRONTAL&LATL Reviewed 03/14/2016 12:00 AM X-RAY EXAM L-S SPINE 2/3 VWS Returned 01/18/2014 12:00 AM COMPLETE CBC W/AUTO DIFF WBC Reviewed 01/18/2014 12:00 AM COMPREHEN METABOLIC PANEL Reviewed 01/18/2014 12:00 AM LIPID PANEL Reviewed 01/18/2014 12:00 AM Prostate Cancer Screening PSA Reviewed 01/18/2014 12:00 AM URINALYSIS AUTO W/SCOPE Reviewed 01/18/2014 12:00 AM GLYCOSYLATED HEMOGLOBIN TEST Reviewed 02/10/2014 12:00 AM MRI BRAIN STEM W/O & W/DYE Reviewed 02/23/2014 12:00 AM CHYLMD TRACH DNA AMP PROBE Reviewed 02/23/2014 12:00 AM N.GONORRHOEAE DNA AMP PROB Reviewed 02/23/2014 12:00 AM URINALYSIS AUTO W/O SCOPE Reviewed 04/26/2014 12:00 AM COMPLETE CBC W/AUTO DIFF WBC Reviewed 04/26/2014 12:00 AM COMPREHEN METABOLIC PANEL Reviewed 04/26/2014 12:00 AM CHEST X-RAY 2VW FRONTAL&LATL Reviewed 04/26/2014 12:00 AM ASSAY OF TROPONIN QUANT Reviewed 04/26/2014 12:00 AM HT MUSCLE IMAGE SPECT MULT Reviewed 05/10/2015 12:00 AM COMPLETE CBC W/AUTO DIFF WBC Reviewed 05/10/2015 12:00 AM COMPREHEN METABOLIC PANEL Reviewed 05/10/2015 12:00 AM GLYCOSYLATED HEMOGLOBIN TEST Reviewed 05/10/2015 12:00 AM ASSAY OF TROPONIN QUANT Reviewed 05/10/2015 12:00 AM LIPID PANEL Reviewed Results Summary Data and Description Results 01/30/2012 10:51 AM GLUCOSE POCT 91.0 mg/dL 01/18/2014 9:40 AM PSA TOTAL 0.410 ng/mLWBC 7.4 RBC 5.52 HGB 15.50 g/dLHCT 45.60 %MCV 83.0 fLMCH 28.10 pgMCHC 34.0 g/dLRDW SD 41 RDW CV 13.50 %MPV 10.40 fLPLT 245 NRBC# 0.00 NRBC% 0.0 %NEUT 54.50 %%LYMP 30.60 %%MONO 11.40 %%EOS 3.0 % %BASO 0.50 %#NEUT 4.01 #LYMP 2.25 #MONO 0.84 #EOS 0.22 #BASO 0.04 MANUAL DIFF NOT IND GLUCOSE 150.0 mg/dLSODIUM 138.0 mmol/LPOTASSIUM 4.10 mmol/LCHLORIDE 107.0 mmol/LCO2 20.0 mmol/LBUN 12.0 mg/dLCREATININE 0.90 mg/dLSGOT/AST 20.0 IU/ LSGPT/ALT 26.0 IU/LALK PHOS 75.0 IU/LTOTAL PROTEIN 7.50 g/dLALBUMIN 4.0 g/ dLTOTAL BILI 0.50 mg/dLCALCIUM 9.0 mg/dLAGE 38 GFR NonAA 93 GFR AA 113 eGFR >60 mL/min/1.73 m2eGFR AA* >60 COLOR YELLOW APPEARANCE CLEAR SPEC GRAV 1.020 pH 6.0 PROTEIN NEGATIVE GLUCOSE NEGATIVE KETONE NEGATIVE BILIRUBIN NEGATIVE BLOOD NEGATIVE NITRITE NEGATIVE LEUK SCREEN NEGATIVE WBC/HPF 5-10 RBC/HPF RARE CASTS/ LPF NEGATIVE CRYSTALS NEGATIVE MUCOUS THRDS NEGATIVE BACTERIA FEW EPITH CELLS FEW SQUAMOUS TRICHOMONAS NEGATIVE YEAST NEGATIVE CULT SET UP? YES TRIGLYCERIDES 615.0 mg/dLCHOLESTEROL 214.0 mg/dLHDL 42.0 mg/dLTOT CHOL/HDL 5.1 LDL (CALC) INVALID MG/DLHGB A1C 5.50 %Est Avg Glucose 111.2 mg/dL 02/23/2014 10:32 AM SOURCE: URINE Chlamydia trachomatis,LUC Negative Neisseria gonorrhoeae,LUC Negative 04/26/2014 11:55 AM TROPONIN-I AD <0.04 ng/mLWBC 7.0 RBC 5.41 HGB 15.40 g/ dLHCT 45.10 %MCV 83.0 fLMCH 28.50 pgMCHC 34.10 g/dLRDW SD 41 RDW CV 13.60 %MPV 10.50 fLPLT 243 NRBC# 0.00 NRBC% 0.0 %NEUT 54.40 %%LYMP 33.70 %%MONO 9.0 %%EOS 2.60 %%BASO 0.30 %#NEUT 3.82 #LYMP 2.36 #MONO 0.63 #EOS 0.18 #BASO 0.02 MANUAL DIFF NOT IND GLUCOSE 114.0 mg/dLSODIUM 140.0 mmol/LPOTASSIUM 4.0 mmol/LCHLORIDE 105.0 mmol/LCO2 23.0 mmol/LBUN 15.0 mg/dLCREATININE 0.80 mg/dLSGOT/AST 17.0 IU/ LSGPT/ALT 19.0 IU/LALK PHOS 71.0 IU/LTOTAL PROTEIN 7.40 g/dLALBUMIN 4.10 g/ dLTOTAL BILI 0.50 mg/dLCALCIUM 9.40 mg/dLAGE 38 GFR NonAA 107 GFR AA 130 eGFR 60 eGFR AA* 60 05/10/2015 12:05 PM WBC 7.2 RBC 5.27 HGB 15.10 g/dLHCT 44.80 %MCV 85.0 fLMCH 28.70 pgMCHC 33.70 g/dLRDW SD 42 RDW CV 13.60 %MPV 10.0 fLPLT 222 NRBC# 0.00 NRBC% 0.0 %NEUT 50.50 %%LYMP 34.30 %%MONO 11.20 %%EOS 3.60 %%BASO 0.40 %#NEUT 3.65 #LYMP 2.48 #MONO 0.81 #EOS 0.26 #BASO 0.03 MANUAL DIFF NOT IND GLUCOSE 85.0 mg/dLSODIUM 139.0 mmol/LPOTASSIUM 4.10 mmol/LCHLORIDE 109.0 mmol/LCO2 21.0 mmol/LBUN 13.0 mg/dLCREATININE 0.80 mg/dLSGOT/AST 15.0 IU/LSGPT/ALT 20.0 IU/ LALK PHOS 67.0 IU/LTOTAL PROTEIN 7.30 g/dLALBUMIN 4.0 g/dLTOTAL BILI 0.40 mg/ dLCALCIUM 9.20 mg/dLAGE 39 GFR NonAA 107 GFR AA 130 eGFR >60 mL/min/1.73 m2eGFR AA* >60 TROPONIN-I AD <0.04 ng/mLHGB A1C 6.20 %Est Avg Glucose 131.2 mg/dL 05/15/2015 8:15 AM TRIGLYCERIDES 260.0 mg/dLCHOLESTEROL 184.0 mg/dLHDL 35.0 mg/ dLTOT CHOL/HDL 5.3 LDL (CALC) 97.0 mg/dL 08/08/2015 11:00 AM D-DIMER [...] %MCV 85.0 fLMCH 28.20 pgMCHC 33.10 g/dLRDW SD 42 RDW CV 13.60 %MPV 9.90 fLPLT 253 NRBC# 0.00 NRBC% 0.0 %NEUT 56.40 %%LYMP 30.70 %%MONO 9.20 %%EOS 3.30 %%BASO 0.40 %#NEUT 5.17 #LYMP 2.81 #MONO 0.84 #EOS 0.30 #BASO 0.04 MANUAL DIFF NOT IND TRIGLYCERIDES 411.0 mg/dLCHOLESTEROL 211.0 mg/dLHDL 36.0 mg/dLTOT CHOL/HDL 5.9 LDL (CALC) INVALID mg/dLGLUCOSE 116.0 mg/dLSODIUM 138.0 mmol/LPOTASSIUM 4.30 mmol/LCHLORIDE 107.0 mmol/LCO2 24.0 mmol/LBUN 15.0 mg/dLCREATININE 0.90 mg/ dLSGOT/AST 18.0 IU/LSGPT/ALT 23.0 IU/LALK PHOS 74.0 IU/LTOTAL PROTEIN 7.10 g/ dLALBUMIN 4.20 g/dLTOTAL BILI 0.40 mg/dLCALCIUM 9.20 mg/dLAGE 40 GFR NonAA 93 GFR AA 113 eGFR >60 mL/min/1.73meGFR AA* >60 Hemoglobin A1c 6.0 %Estim. Avg Glu (eAG) 126 History Of Immunizations Not available. History of [...] Low Back Pain Aug 15 2016 10:23AM Hypertension Sep 13 2016 10:02AM Low Back Pain Sep 13 2016 10:02AM Low Back Pain Dec 11 2016 8:30AM Rhus dermatitis Dec 11 2016 8:30AM Payers Insurance Name Company Name Plan Name Plan Number Policy Number Policy Group Number Start Date [employer] [facility] [id number] N/A zzzTest Medicare A Test Medicare A [id number] N/A [facility] RHC Comm [id number] Saturday, 2012 [facility] Comm Plan of [id number] N/A History of Encounters Visit Date Visit Type Provider 12/11/2016 Office visit Arturo Benitez MD 09/13/2016 Office visit Arturo Benitez MD 08/15/2016 Office visit Arturo Benitez MD 07/07/2016 [facility] Oliverio Matias MD 06/21/2016 Office visit Arturo Benitez MD 05/17/2016 Office visit Arturo Benitez MD 05/02/2016 [facility] Oliverio Matias MD 03/14/2016 Office visit Arturo Benitez MD 02/13/2016 Office visit Arturo Benitez MD 01/08/2016 Hospital Wes Ochoa MD 12/27/2015 Office visit Wes Ochoa MD 12/25/2015 Office visit Trena Arora DIRECTOR BEHAVIORAL HEALTH 08/08/2015 Office visit Trena Arora APRN 05/10/2015 Office visit Trena Arroa DIRECTOR BEHAVIORAL HEALTH 05/02/2015 Office visit Trena Arora DIRECTOR BEHAVIORAL HEALTH 02/16/2015 Office visit Trena Arora DIRECTOR BEHAVIORAL HEALTH 08/24/2014 Office visit Trena Arora DIRECTOR BEHAVIORAL HEALTH 08/05/2014 Office visit Trena Arora DIRECTOR BEHAVIORAL HEALTH 04/26/2014 [facility] Oliverio Matias MD 04/26/2014 Office visit Trena Arora DIRECTOR BEHAVIORAL HEALTH 02/23/2014 Office visit Trena Arora DIRECTOR BEHAVIORAL HEALTH 02/10/2014 Office visit Leno Hernandez DO 01/18/2014 Office visit Trena Arora DIRECTOR BEHAVIORAL HEALTH 02/05/2012 Office visit Bryan Tracy MD 01/30/2012 [facility] Bryan Tracy MD 01/27/2012 Office visit Bryan Tracy MD 01/22/2012 Office visit Bryan Tracy MD 01/02/2012 [facility] Oliverio Matias MD 05/09/2011 [facility] Oliverio Matias MD 10/22/2010 [facility] Lashonda Abdalla MD
--- OUTSIDE RECORDS SUMMARY | 2017-08-25 06:46 | XMS REPORT | CCD ---
Author Author MIROSLAVA TUCKER Organization Unknown Address [address] [place] [address] Care Team Providers Care Hone Operator Name Role Phone CRESTED BUTTE ER, TITO DO Attphys CRESTED BUTTE ER, TITO DO Prisurg Allergies Allergy Code Allergy Type Reaction Status VISTARIL 363388 Drug allergy Active KEFLEX 297501 Drug allergy Active ASPIRIN 1191 Drug allergy SOB QUIT BREATHING Active BACTRIM 892512 Drug allergy Active Active Medications Unknown or Not Available. Problems Unknown or Not Available. Procedures Unknown or Not Available. Results Unknown or Not Available. Encounters Encounter Diagnosis Diagnosis Code Start Date Otalgia, left ear H9202 12/05/2016 Function Status Unknown or Not Available. History of Immunizations Immunization Code Date Influenza, seasonal, injectable 141 08/20/2013 Social History Smoking Status Code Start Date End Date Never smoker [id number] Vital Signs Unknown or Not Available. Function Status Unknown or Not Available. Goals Unknown or Not Available. ASSESSMENTS Unknown or Not Available. Health Concerns Section Unknown or Not Available.
--- OUTSIDE RECORDS SUMMARY | 2017-08-25 06:46 | XMS REPORT ---
Author Author [facility] Organization [facility] Address [address] [place], [place] [id number] Care Team Providers Care Flat Hammerer Name Role Phone PCP Unavailable Allergies and Adverse Reactions Name Reaction Notes Raspberries Mushroom Aspirin Keflex Vistaril Bactrim DS Plan of Treatment Planned Activity Comments Planned Date Planned Time Plan/Goal COMPLETE CBC W/AUTO DIFF WBC 05/10/2015 12:00 AM COMPREHEN METABOLIC PANEL 05/10/2015 12:00 AM GLYCOSYLATED HEMOGLOBIN TEST 05/10/2015 12:00 AM ASSAY OF TROPONIN QUANT 05/10/2015 12:00 AM Medications Name Start Date Expiration Date SIG Comments [...] AM HT MUSCLE IMAGE SPECT MULT Returned Results Summary Data and Description Results [...] 0.50 mg/dLCALCIUM 9.0 mg/ dLeGFR >60 mL/min/1.73 [id number] YELLOW APPEARANCE CLEAR SPEC GRAV 1.020 pH [...] BILI 0.50 mg/dLCALCIUM 9.40 mg/ dLeGFR 60 History Of Immunizations Not available. History of [...] 11:24AM Elevated glucose May 10 2015 11:24AM Payers Insurance Name Company Name Plan Name Plan Number Policy Number Policy Group Number Start Date [facility] Comm [id number] Saturday, 2012 [facility] Plan of [id number] N/A [facility] [id number] N/A History of Encounters Visit Date Visit Type Provider 05/10/2015 Office visit Trena Arora INVESTMENT PROFESSIONAL 05/02/2015 Office visit Trena Arora INVESTMENT PROFESSIONAL 02/16/2015 Office visit Trena Arora INVESTMENT PROFESSIONAL 08/24/2014 Office visit Trena Arora INVESTMENT PROFESSIONAL 08/05/2014 Office visit Trena Arora INVESTMENT PROFESSIONAL 04/26/2014 Office visit Trena Arora INVESTMENT PROFESSIONAL 04/26/2014 Hospital Oliverio Matias MD 02/23/2014 Office visit Trena Arora INVESTMENT PROFESSIONAL 02/10/2014 Office visit Leno Hernandez DO 01/18/2014 Office visit Trena Arora INVESTMENT PROFESSIONAL 02/05/2012 Office visit Bryan Tracy MD 01/30/2012 Hospital Bryan Tracy MD 01/27/2012 Office visit Bryan Tracy MD 01/22/2012 Office visit Bryan Tracy MD 01/02/2012 Hospital Oliverio Matias MD 05/09/2011 Hospital Oliverio Matias MD 10/22/2010 [facility] Lashonda Abdalla MD
--- OUTSIDE RECORDS SUMMARY | 2017-08-25 06:47 | XMS REPORT ---
Author Author [facility] Organization [facility] Address [address] [place], [place] [address] Care Team Providers Care Car Rental Deliverer Name Role Phone PCP Unavailable Allergies and Adverse Reactions Name Reaction Notes Raspberries Mushroom Aspirin Keflex Vistaril Bactrim DS Plan of Treatment Not available. Medications Active Name Start Date Estimated Completion Date SIG Comments gentamicin ophthalmic drops 0.3 % 05/02/2015 05/09/2015 instill 1 drop into affected eye(s) by ophthalmic route every 4 hours for 7 days Name Start Date Expiration [...] HC BMI BSA BMI Percentile O2 Sat(%) 05/02/2015 1:34:00 PM 142 mmHg 76 mmHg [...] rpm 97.2 F 250.5 lbs 69 in 36.99 kg/m2 2.35 m2 96 % 02/23/2014 10:00:00 AM 132 mmHg 68 mmHg 94 bpm 18 rpm 96.4 F 247.125 lbs 69 in 36.4936 kg/m 2.3361 m 98 % 02/10/2014 9:32:00 AM 128 mmHg 80 mmHg 94 bpm 20 rpm 97.1 F 245.5 lbs 69 in 36.25 kg/m2 2.33 m2 95 % 01/18/2014 8:59:00 AM 148 mmHg 84 mmHg 79 bpm 18 rpm 97.6 F 247 lbs 68 in 37.5558 kg/m 2.3185 m 96 % 02/05/2012 10:01:00 AM 120 mmHg 80 mmHg 75 bpm 18 rpm 97.4 F 253 lbs 68 in 38.47 kg/m2 2.35 m2 95 % 01/27/2012 10:44:00 AM 106 mmHg 70 mmHg 80 bpm 18 rpm 96.7 F 255 lbs 68 in 38.7722 kg/m 2.3557 m 96 % 01/22/2012 1:21:00 PM 117 mmHg 88 mmHg 104 bpm 20 rpm 97.8 F 254 lbs 68 in 38.62 kg/m2 2.35 m2 Social History Name Description Comments [...] 0.50 mg/dLCALCIUM 9.0 mg/ dLeGFR >60 mL/min/1.73 [id number] YELLOW APPEARANCE CLEAR SPEC GRAV 1.020 pH [...] Acute Bilateral Conjunctivitis May 02 2015 1:36PM Payers Insurance Name Company Name Plan Name Plan Number Policy Number Policy Group Number Start Date [facility] Comm [id number] Saturday, 2012 [facility] Comm Plan of [id number] N/A [facility] [id number] N/A History of Encounters Visit Date Visit Type Provider 05/02/2015 Office visit Trena Arora APRN 02/16/2015 Office visit Trena Arora SALES REPRESENTATIVE BUSINESS COURSES 08/24/2014 Office visit Trena Arora SALES REPRESENTATIVE BUSINESS COURSES 08/05/2014 Office visit Trena Arora APRN 04/26/2014 Office visit Trena Arora SALES REPRESENTATIVE BUSINESS COURSES 04/26/2014 [facility] Oliverio Matias MD 02/23/2014 Office visit Trena Arora SALES REPRESENTATIVE BUSINESS COURSES 02/10/2014 Office visit Leno Hernandez DO 01/18/2014 Office visit Trena Arora SALES REPRESENTATIVE BUSINESS COURSES 02/05/2012 Office visit Bryan Tracy MD 01/30/2012 [facility] Bryan Tracy MD 01/27/2012 Office visit Bryan Tracy MD 01/22/2012 Office visit Bryan Tracy MD 01/02/2012 [facility] Oliverio Matias MD 05/09/2011 [facility] Oliverio Matias MD 10/22/2010 [facility] Lashonda Abdalla MD
--- OUTSIDE RECORDS SUMMARY | 2017-08-25 06:47 | XMS REPORT | CCD ---
Author Author JAKY TYLER ULYSSESGeorgia Organization Unknown Address [address] [place], [place] [address] Care Team Providers Care Vc++ Developer Name Role Phone HANDSHY ERNILTON MD Attphys HANDSHY ER, NILTON ACE Prisurg Vital Signs Unknown or Not Available. Allergies Allergy Code Allergy Type Reaction Status CEPHALEXIN 2231 Drug allergy SOB QUIT BREATHING Active RASPBERRY 0 Food allergy Active KEFLEX 478473 Drug allergy Active HYDROXYZINE 5553 Drug allergy BECAME VIOLENT Active ASPIRIN 1191 Drug allergy SOB QUIT BREATHING Active blueberry {Clinical monitoring unavailable} 0 Food allergy Active mushrooms {Clinical monitoring unavailable} 0 Food allergy Active BACTRIM 607677 Drug allergy Active Procedures Procedure Code Procedure Type Date CX CHEST [address] 10/21/2015 CT ABD AND PELVIS W/O CONTRAST 151476926 SNOMED CT 2014 ^CULTURE URINE IDENTIFICATION 400988682 SNOMED CT 2014 CULTURE URINE 147967201 SNOMED CT 10/21/2015 C REACTIVE PROTEIN 63482701 SNOMED CT 10/21/2015 INFLUENZA A & B 883438617 SNOMED CT 10/21/2015 CHLAMYDIA/GC AMPLIFIED DNA 077051913 SNOMED CT 10/21/2015 COMPREHENSIVE METABOLIC PANEL 911692786 SNOMED CT 2014 CBC W/ AUTO DIFF (RFLX MAN DIFF IF IND) 5102046 SNOMED CT 10/21/2015 UA ROUTINE C&S IF IND 457767054 SNOMED CT 10/21/2015 RAPID DRUG SCREEN 328710301 SNOMED CT 10/21/2015 ^CBC W/AUTO DIFF 3636387 SNOMED CT 10/21/2015 ^UA WITH MICRO 537792689 SNOMED CT 10/21/2015 History of Immunizations Immunization Code Date Influenza, seasonal, injectable 141 08/20/2013 Problems Unknown or Not Available. Results COMPREHENSIVE METABOLIC PANEL - Collect Date/Time: 10/21/2015 22:20 Test Name Code Test Result Test Units Test Ref Range GLUCOSE 2345-7 100 MG/DL L=70 H=100 SODIUM 2951-2 137 MEQ/L L=135 H=148 POTASSIUM 2823-3 3.9 MEQ/L L=3.5 H=5.3 CHLORIDE 2075-0 111 MEQ/L L=96 H=110 CO2 2028-9 18 MEQ/L L=22 H=29 BUN 3094-0 15 MG/DL L=8 H=22 CREATININE 2160-0 0.8 MG/DL L=0.6 H=1.6 SGOT/AST 1920-8 14 IU/L L=10 H=40 SGPT/ALT 1742-6 20 IU/L L=8 H=54 ALK PHOS 6768-6 79 IU/L L=35 H=115 TOTAL PROTEIN 2885-2 7.0 G/DL L=5.5 H=8.5 ALBUMIN 1751-7 4.1 G/DL L=3.1 H=5.4 TOTAL BILI 1975-2 0.3 MG/DL L=0.0 H=1.5 CALCIUM 40029-4 9.0 MG/DL L=8.2 H=10.6 AGE 40 yrs GFR NonAA 106 GFR AA 128 eGFR >60 N/A eGFR AA* >60 N/A RAPID DRUG SCREEN - Collect Date/Time: 10/21/2015 22:20 Test Name Code Test Result Test Units Test Ref Range Cannabinoids (THC) NEGATIVE N/A NEG: < 50 ng/ ml Phencyclidine (PCP) NEGATIVE N/A NEG: < 25 ng/ ml Cocaine NEGATIVE N/A NEG: < 300 ng/ml Methamphetamine NEGATIVE N/A NEG: < 1000 ng/ml Opiates NEGATIVE N/A NEG: < 300 ng/ml Amphetamine NEGATIVE N/A NEG: < 1000 ng/ml Benzodiazepines NEGATIVE N/A NEG: < 300 ng/ml Tricyclic Antidepres NEGATIVE N/A NEG: < 300 ng/ ml Methadone NEGATIVE N/A NEG: < 300 ng/ml Barbiturates NEGATIVE N/A NEG: < 200 ng/ml Oxycodone NEGATIVE N/A NEG: < 100 ng/ml Propoxyphene (PPX) NEGATIVE N/A NEG: < 300 ng/ ml CBC W/ AUTO DIFF (RFLX MAN DIFF IF IND) - Collect Date/Time: 10/21/2015 22:20 Test Name Code Test Result Test Units Test Ref Range WBC 06135-5 8.6 TH/CMM L=4.5 H=10.8 RBC 789-8 5.00 ML/CMM L=4.70 H=6.10 HGB 718-7 14.3 G/DL L=14.0 H=18.0 HCT 4544-3 43.1 % L=42.0 H=52.0 MCV 86 FL L=81 H=99 MCH 28.6 PG L=27.0 H=33.0 MCHC 33.2 G/DL L=31.0 H=36.0 RDW SD 42 FL L=36 H=50 RDW CV 13.2 % L=0.0 H=14.8 MPV 9.8 FL L=9.3 H=12.5 PLT 777-3 234 TH/CMM L=130 H=440 NRBC# 0.00 TH/CMM L=0.00 H=0.00 NRBC% 0.0 /100WBC L=0.0 H=2.0 %NEUT 54.1 % %LYMP 33.4 % %MONO 8.5 % %EOS 3.7 % %BASO 0.3 % #NEUT 4.65 TH/CMM L=2.10 H=8.20 #LYMP 2.88 TH/CMM L=0.90 H=5.20 #MONO 0.73 TH/CMM L=0.16 H=1.00 #EOS 0.32 TH/CMM L=0.00 H=0.80 #BASO 0.03 TH/CMM L=0.00 H=0.20 MANUAL DIFF NOT IND N/A INFLUENZA A & B - Collect Date/Time: 10/21/2015 22:35 Test Name Code Test Result Test Units Test Ref Range INFLUENZA A & B 6437-8 NO INFLUENZA A OR B DETECTED N/A UA ROUTINE C&S IF IND - Collect Date/Time: 10/21/2015 22:20 Test Name Code Test Result Test Units Test Ref Range COLOR YELLOW N/A NL: YELLOW APPEARANCE CLEAR N/A NL: CLEAR SPEC GRAV 1.020 N/A NL: 1.002 - 1.022 pH 7.5 N/A NL: 5 - 9 PROTEIN NEGATIVE N/A NL: NEGATIVE mg/dl GLUCOSE NEGATIVE N/A NL: NEGATIVE mg/dl KETONE NEGATIVE N/A NL: NEGATIVE mg/dl BILIRUBIN NEGATIVE N/A NL: NEGATIVE BLOOD NEGATIVE N/A NL: NEGATIVE NITRITE POSITIVE N/A NL: NEGATIVE LEUK SCREEN LARGE N/A NL: NEGATIVE MICRO INDICATED? SEE BELOW N/A WBC/HPF 20-50 N/A NL: NEGATIVE RBC/HPF 5-10 N/A NL: NEGATIVE CASTS/LPF NEGATIVE N/A NL: NEGATIVE CRYSTALS 2++ AMORPHOUS N/A NL: NEGATIVE MUCOUS THRDS NEGATIVE N/A NL: NEGATIVE BACTERIA 2++ N/A NL: NEGATIVE EPITH CELLS 1+ SQUAMOUS N/A NL: NEGATIVE TRICHOMONAS NEGATIVE N/A NL: NEGATIVE YEAST NEGATIVE N/A NL: NEGATIVE CULT SET UP? YES N/A CHLAMYDIA/GC AMPLIFIED DNA - Collect Date/Time: 10/21/2015 22:20 Test Name Code Test Result Test Units Test Ref Range Neisseria Gonorrhoeae 51661-0 NEGATIVE N/A NEGATIVE Chlamydia Trachomatis 54676-8 NEGATIVE N/A NEGATIVE C REACTIVE PROTEIN - Collect Date/Time: 10/21/2015 22:20 Test Name Code Test Result Test Units Test Ref Range C REACTIVE PROTEIN 1988-5 <0.5 MG/DL L=0.0 H= 1.0 Active Medications Unknown or Not Available. Medications Administered During Visit Unknown or Not Available. Encounters Encounter Diagnosis Diagnosis Code Start Date Urinary tract infectious disease 77881457 10/21/2015 Social History Smoking Status Code Start Date End Date Never smoker 683947729 Patient Decision Aids Unknown or Not Available. Discharge Instructions You were admitted to [facility] on 10/21/2015 with a principal diagnosis of Urinary tract infectious disease . You had the following tests done: Neisseria Gonorrhoeae Chlamydia Trachomatis You were discharged from [facility] on 10/22/2015. Should you have any questions prior to discharge, please contact a member of your healthcare team. If you have left the hospital and have any questions, please contact your primary care physician. Chief Complaint and Reason For Visit Chief Complaint Date of Onset FLANK PAIN AND COUGH Function Status Unknown or Not Available. Plan of Care Unknown or Not Available. Referral/Transition of Care Unknown or Not Available.
--- OUTSIDE RECORDS SUMMARY | 2017-08-25 06:47 | XMS REPORT | CCD ---
Author Author EDUAR CARTER Organization Unknown Address [address] [place] [address] Care Team Providers Care Window Glass Installer Name Role Phone DENISE ACE, GREGORIO Chery Attphys BABAK MARS DO Prisurg Allergies Allergy Code Allergy Type Reaction Status VISTARIL 917047 Drug allergy Active KEFLEX 249074 Drug allergy Active ASPIRIN 1191 Drug allergy SOB QUIT BREATHING Active BACTRIM 667507 Drug allergy Active Active Medications Unknown or Not Available. Problems Unknown or Not Available. Procedures Procedure Code Procedure Type Date CT ABD AND PELVIS W/O CONTRAST 967926864 SNOMED CT 2016 ABDOMEN ONE VIEW 641364926 SNOMED CT 12/23/2016 CULTURE URINE 695646386 SNOMED CT 12/23/2016 RAPID DRUG SCREEN 457573545 SNOMED CT 12/23/2016 UA ROUTINE C&S IF IND 024942775 SNOMED CT 12/23/[address] 12/23/2016 COMPREHENSIVE METABOLIC PANEL 959218700 SNOMED CT 2016 CBC W/ AUTO DIFF (RFLX MAN DIFF IF IND) 2781889 SNOMED CT 12/23/2016 ^CULTURE URINE IDENTIFICATION 606064477 SNOMED CT 2016 ^CULTURE AEROBIC ID [id number] SNOMED CT 12/23/2016 ^UA WITH MICRO 797126365 SNOMED CT 12/23/2016 ^CBC W/AUTO DIFF 3461655 SNOMED CT 12/23/2016 Results COMPREHENSIVE METABOLIC PANEL - Collect Date/Time: 12/23/2016 18:20 Test Name Code Test Result Test Units Test Ref Range GLUCOSE 2345-7 120 MG/DL L=70 H=100 SODIUM 2951-2 137 MEQ/L L=135 H=148 POTASSIUM 2823-3 4.1 MEQ/L L=3.5 H=5.3 CHLORIDE 2075-0 105 MEQ/L L=96 H=110 CO2 2028-9 21 MEQ/L L=22 H=29 BUN 3094-0 22 MG/DL L=8 H=22 CREATININE 2160-0 0.9 MG/DL L=0.6 H=1.6 SGOT/AST 1920-8 13 IU/L L=10 H=40 SGPT/ALT 1742-6 17 IU/L L=8 H=54 ALK PHOS 6768-6 78 IU/L L=35 H=115 TOTAL PROTEIN 2885-2 7.7 G/DL L=5.5 H=8.5 ALBUMIN 1751-7 4.2 G/DL L=3.1 H=5.4 TOTAL BILI 1975-2 0.5 MG/DL L=0.0 H=1.5 CALCIUM 04341-7 8.9 MG/DL L=8.2 H=10.6 AGE 41 yrs GFR NonAA 92 GFR AA 112 eGFR >60 N/A eGFR AA* >60 N/A LIPASE - Collect Date/Time: 12/23/2016 18:20 Test Name Code Test Result Test Units Test Ref Range LIPASE 3040-3 45 U/L L=8 H=78 RAPID DRUG SCREEN - Collect Date/Time: 12/23/2016 18:45 Test Name Code Test Result Test Units [...] MAN DIFF IF IND) - Collect Date/Time: 12/23/2016 18:20 Test Name Code Test Result Test Units Test Ref Range WBC 83757-2 11.5 TH/CMM L=4.5 H=10.8 RBC 789-8 5.85 ML/CMM L=4.70 H=6.10 HGB 718-7 16.1 G/DL L=14.0 H=18.0 HCT 4544-3 49.2 % L=42.0 H=52.0 MCV 84 FL L=81 H=99 MCH 27.5 PG L=27.0 H=33.0 MCHC 32.7 G/DL L=31.0 H=36.0 RDW SD 41 FL L=36 H=50 RDW CV 13.2 % L=0.0 H=14.8 MPV 9.5 FL L=9.3 H=12.5 PLT 777-3 254 TH/CMM L=130 H=440 NRBC# 0.00 TH/CMM L=0.00 H=0.00 NRBC% 0.0 /100WBC L=0.0 H=2.0 %NEUT 75.0 % %LYMP 14.4 % %MONO 7.9 % %EOS 2.1 % %BASO 0.3 % #NEUT 8.63 TH/CMM L=2.10 H=8.20 #LYMP 1.66 TH/CMM L=0.90 H=5.20 #MONO 0.91 TH/CMM L=0.16 H=1.00 #EOS 0.24 TH/CMM L=0.00 H=0.80 #BASO 0.04 TH/CMM L=0.00 H=0.20 MANUAL DIFF NOT IND N/A UA ROUTINE C&S IF IND - Collect Date/Time: 12/23/2016 18:26 Test Name Code Test Result Test Units Test Ref Range COLOR YELLOW N/A NL: YELLOW APPEARANCE CLEAR N/A NL: CLEAR SPEC GRAV >=1.030 N/A NL: 1.002 - 1.022 pH 6.0 N/A NL: 5 - 9 PROTEIN TRACE N/A NL: NEGATIVE mg/dl GLUCOSE NEGATIVE N/A NL: NEGATIVE mg/dl KETONE NEGATIVE N/A NL: NEGATIVE mg/dl BILIRUBIN NEGATIVE N/A NL: NEGATIVE BLOOD TRACE-INTACT N/A NL: NEGATIVE NITRITE POSITIVE N/A NL: NEGATIVE LEUK SCREEN SMALL N/A NL: NEGATIVE MICRO INDICATED? SEE BELOW N/A WBC/HPF 20-50 N/A NL: NEGATIVE RBC/HPF 0-5 N/A NL: NEGATIVE CASTS/LPF NEGATIVE N/A NL: NEGATIVE CRYSTALS NEGATIVE N/A NL: NEGATIVE MUCOUS THRDS FEW N/A NL: NEGATIVE BACTERIA 2++ N/A NL: NEGATIVE EPITH CELLS FEW SQUAMOUS N/A NL: NEGATIVE TRICHOMONAS NEGATIVE N/A NL: NEGATIVE YEAST NEGATIVE N/A NL: NEGATIVE CULT SET UP? YES N/A Function Status Unknown or Not Available. History of Immunizations Immunization Code Date Influenza, seasonal, injectable 141 08/20/2013 Plan of Treatment Unknown or Not Available. Social History Smoking Status Code Start Date End Date Never smoker [id number] Vital Signs Unknown or Not Available. Function Status Unknown or Not Available. Goals Unknown or Not Available. ASSESSMENTS Unknown or Not Available. Health Concerns Section Unknown or Not Available.
--- OUTSIDE RECORDS SUMMARY | 2017-08-25 06:48 | XMS REPORT ---
Author Author Arturo Benitez [facility] Address [address] [place], [place] [address] Care Team Providers Care Electrical/Instrument Technician Name Role Phone Arturo Benitez PCP Unavailable Allergies and Adverse Reactions Name Reaction Notes Raspberries Mushroom Aspirin Keflex Vistaril Bactrim DS Plan of Treatment Planned Activity Comments Planned Date Planned Time Plan/Goal CHEST X-RAY 2VW FRONTAL&LATL 02/13/2016 12:00 AM recurrent UTI ELECTROCARDIOGRAM COMPLETE 04/26/2014 12:00 AM [...] oral route once daily for 7 days [place] 5-325 mg oral tablet 02/13/2016 take 1 tablet by oral route every [...] prednisone 10 mg oral tablet 05/10/2015 08/08/2015 [id number](6 tabs) daily for 5 days, then 50mg [...] HC BMI BSA BMI Percentile O2 Sat(%) 02/13/2016 1:41:00 PM 150 mmHg 90 mmHg [...] Returned 12/25/2015 12:00 AM Rocephin 1 gram [facility]#[id number] Reviewed 12/25/2015 12:00 AM THER/PROPH/DIAG INJ SC/IM [...] 0.50 mg/dLCALCIUM 9.0 mg/ dLeGFR >60 mL/min/1.73 [id number] YELLOW APPEARANCE CLEAR SPEC GRAV 1.020 pH 6.0 PROTEIN NEGATIVE GLUCOSE NEGATIVE KETONE NEGATIVE BILIRUBIN NEGATIVE BLOOD NEGATIVE NITRITE NEGATIVE LEUK SCREEN NEGATIVE CASTS/LPF NEGATIVE CRYSTALS NEGATIVE MUCOUS THRDS NEGATIVE BACTERIA FEW EPITH CELLS FEW SQUAMOUS TRICHOMONAS NEGATIVE YEAST NEGATIVE TRIGLYCERIDES 615.0 mg/dLCHOLESTEROL 214.0 mg/dLHDL 42.0 mg/dLLDL (CALC) INVALID MG/DLHGB A1C 5.50 %Est Avg [...] BILI 0.40 mg/dLCALCIUM 9.20 mg/dLeGFR >60 mL/min/1.73 [id number]- I AD <0.04 ng/mLHGB A1C 6.20 %Est Avg [...] BILI 0.40 mg/dLCALCIUM 9.20 mg/dLeGFR >60 mL/min/1.73m Hemoglobin A1c 6.0 % History Of Immunizations Not available. History of [...] 2016 1:51PM Pneumonia Feb 13 2016 1:51PM Payers Insurance Name Company Name Plan Name Plan Number Policy Number Policy Group Number Start Date zzzTest Medicare A Test Medicare A [id number] N/A [facility] - RHC - Community Plan [facility] RHC Comm [id number] Saturday, 2012 [facility] Comm Plan of [id number] N/A BCBS [facility] [id number] N/A History of Encounters Visit Date Visit Type Provider 02/13/2016 Office visit Arturo Benitez MD 01/08/2016 Hospital Wes Ochoa MD 12/27/2015 Office visit Wes Ochoa MD 12/25/2015 Office visit Trena Arora APRN 08/08/2015 Office visit Trena Arora APRN 05/10/2015 Office visit Trena Arora APRN 05/02/2015 Office visit Trena Arora APRN 02/16/2015 Office visit rTena Arora APRN 08/24/2014 Office visit Trena Arora APRN 08/05/2014 Office visit Trena Arora APRN 04/26/2014 [facility] Oliverio Matias MD 04/26/2014 Office visit Trena Arora APRN 02/23/2014 Office visit Trena Arora APRN 02/10/2014 Office visit Leno Hernandez DO 01/18/2014 Office visit Trena Arora APRN 02/05/2012 Office visit Bryan Tracy MD 01/30/2012 [facility] Bryan Tracy MD 01/27/2012 Office visit Bryan Tracy MD 01/22/2012 Office visit Bryan Tracy MD 01/02/2012 Hospital Oliverio Matias MD 05/09/2011 [facility] Oliverio Matias MD 10/22/2010 [facility] Lashonda Abdalla MD
--- OUTSIDE RECORDS SUMMARY | 2017-08-25 06:48 | XMS REPORT ---
Author Author Arturo Benitez [facility] Address [address] [place], [place] [address] Care Team Providers Care Camera Mechanic Name Role Phone Arturo Benitez PCP Unavailable Arturo Benitez PreferredProvider Unavailable Allergies and Adverse Reactions Name Reaction Notes Raspberries Mushroom Aspirin Keflex Vistaril Bactrim DS Plan of Treatment Planned Activity Comments Planned Date Planned Time Plan/Goal recurrent UTI Treadmill 05/10/2015 12:00 AM Medications Active Name Start Date Estimated Completion Date SIG Comments Prilosec OTC 20 mg oral tablet,delayed release (DR/EC) 01/27/2017 take 1 tablet by oral route daily hydrochlorothiazide 25 mg oral tablet 07/04/2017 11/01/2017 take 1 tablet ( 25 mg) by oral route once daily for 30 days Silvadene 1 % topical cream 07/04/2017 apply a 1/16 inch (1.5 mm) thick layer to entire burn area by topical route once daily [place] 10-325 mg oral tablet 07/04/2017 take 1 tablet by oral route every [...] oral route once daily for 7 days Ambien 10 mg oral tablet 01/27/2017 03/28/2017 take 1 tablet (10 mg) by oral route once daily at bedtime for 30 days Medrol (Juan) 4 mg oral tablets,dose pack 04/17/2017 04/29/2017 take as directed for 6 days Discontinued Name Start Date Discontinued Date [...] prednisone 10 mg oral tablet 05/10/2015 08/08/2015 Iadx51pm(6 tabs) daily for 5 days, then 50mg for 1 day then 40mg for 1 day, then 3omg for 1 day and 20mg for 1 day then 10mg for 1 day Lipitor 20 mg oral tablet 05/16/2015 08/08/2015 take 1 tablet (20 mg) by oral route once daily at bedtime for 30 days lisinopril-hydrochlorothiazide 20-12.5 mg oral tablet 12/25/2015 01/27/2017 take 1 tablet by oral route once daily levofloxacin 500 mg oral tablet 03/14/2016 take 1 tablet (500 mg) by oral route once daily for 7 days ibuprofen 800 mg oral tablet 05/17/2016 06/06/2017 take 1 tablet (800 mg) by oral route 3 times per day with food lisinopril-hydrochlorothiazide 20-12.5 mg oral tablet 06/06/2017 take 1 tablet by oral route once daily Medrol (Juan) 4 mg oral tablets,dose pack 06/06/2017 06/06/2017 take as directed for 6 days Problem List Description Status Onset Hyperlipidemia Active Diabetes with unspecified complication, type II or unspecified type, uncontrolled Active Hypertension Active Neuropathy Active seizures Active Vital Signs Date Time BP-Sys(mm[Hg] BP-Celena(mm[Hg]) HR(bpm) RR(rpm) Temp WT HT HC BMI BSA BMI Percentile O2 Sat(%) 07/04/2017 9:44:00 AM 138 mmHg 78 mmHg 83 bpm 18 rpm 98.2 F 255.5 lbs 69 in 37.73 kg/m2 2.38 m2 97 % 06/06/2017 10:48:00 AM 146 mmHg 82 mmHg 78 bpm 18 rpm 96.9 F 260 lbs 69 in 38.3949 kg/m 2.3961 m 97 % 04/17/2017 3:08:00 PM 138 mmHg 82 mmHg 92 bpm 18 rpm 98.5 F 250.375 lbs 69 in 36.97 kg/m2 2.35 m2 97 % 01/27/2017 9:59:00 AM 132 mmHg 84 mmHg 79 bpm 18 rpm 96.5 F 266 lbs 69 in 39.2809 kg/m 2.4236 m 96 % 12/11/2016 8:24:00 AM 132 mmHg 90 mmHg [...] Reviewed 12/25/2015 12:00 AM Rocephin 1 gram [facility]#[id number] Reviewed 12/25/2015 12:00 AM THER/PROPH/DIAG INJ SC/IM Reviewed 02/13/2016 12:00 AM CHEST X-RAY 2VW FRONTAL&LATL Reviewed 03/14/2016 12:00 AM X-RAY EXAM L-S SPINE 2/3 VWS Reviewed 12/11/2016 12:00 AM Decadron 8mg Injection Reviewed 12/11/2016 12:00 AM Depo-Medrol 80 Mg Injection, RHC Medicaid Reviewed 06/06/2017 12:00 AM Decadron 8mg Injection Reviewed 06/06/2017 12:00 AM Depo-Medrol 80mg Injection Reviewed 01/18/2014 12:00 AM COMPLETE CBC W/AUTO [...] OF TROPONIN QUANT Reviewed 04/26/2014 12:00 AM ELECTROCARDIOGRAM COMPLETE Reviewed 04/26/2014 12:00 AM ELECTROCARDIOGRAM TRACING Reviewed 04/26/2014 12:00 AM ELECTROCARDIOGRAM REPORT Reviewed 04/26/2014 12:00 AM HT MUSCLE IMAGE SPECT MULT Reviewed 05/10/2015 12:00 AM COMPLETE CBC W/AUTO DIFF WBC Reviewed 05/10/2015 12:00 AM COMPREHEN METABOLIC PANEL Reviewed 05/10/2015 12:00 AM GLYCOSYLATED HEMOGLOBIN TEST Reviewed 05/10/2015 12:00 AM ASSAY OF TROPONIN QUANT Reviewed 05/10/2015 12:00 AM ELECTROCARDIOGRAM COMPLETE Reviewed 05/10/2015 12:00 AM LIPID PANEL Reviewed Results Summary Date and Description Results 01/30/2012 10:51 AM GLUCOSE [...] 8:30AM Rhus dermatitis Dec 11 2016 8:30AM Esophageal Reflux Jan 27 2017 10:06AM Insomnia, unspecified Jan 27 2017 10:06AM Low Back Pain Jan 27 2017 10:06AM Atopic dermatitis Apr 17 2017 3:10PM Dorsalgia, unspecified Apr 17 2017 3:10PM Other chronic pain Apr 17 2017 3:10PM Atopic dermatitis Jun 06 2017 10:53AM Hypertension Jul 04 2017 9:47AM Low Back Pain Jul 04 2017 9:47AM Payers Insurance Name Company Name Plan Name Plan Number Policy Number Policy Group Number Start Date zzzTest Medicare A Test Medicare A [id number] N/A [facility] - RHC - Community Plan [facility] RHC Comm [id number] Saturday, 2012 [facility] Community Plan [facility] Comm Plan of [id number] N/A BCBS [employer] [facility] [id number] Thursday, 2016 History of Encounters Visit Date Visit Type Provider 07/04/2017 Office visit Arturo Benitez MD 06/06/2017 Office visit Arturo Benitez MD 04/17/2017 Office visit Arturo Benitez MD 01/27/2017 Office visit Arturo Benitez MD 12/31/2016 [facility] Oliverio Matias MD 12/11/2016 Office visit Arturo Benitez MD 09/13/2016 Office visit Arturo Benitez MD 08/15/2016 Office visit Arturo Benitez MD 07/07/2016 Hospital Oliverio Matias MD 06/21/2016 Office visit Arturo Benitez MD 05/17/2016 Office visit Arturo Benitez MD 05/02/2016 [facility] Oliverio Matias MD 03/14/2016 Office visit Arturo Benitez MD 02/13/2016 Office visit Arturo Benitez MD 01/08/2016 [facility] Wes Ochoa MD 12/27/2015 Office visit Wes Ochoa MD 12/25/2015 Office visit Trena Ulysses MANAGER EMS 08/08/2015 Office visit Trena Ulysses MANAGER EMS 05/10/2015 Office visit Trena Walker MANAGER EMS 05/02/2015 Office visit Trena Walker MANAGER EMS 02/16/2015 Office visit Trena Walker MANAGER EMS 08/24/2014 Office visit Trena Arora MANAGER EMS 08/05/2014 Office visit Trena Ulysses MANAGER EMS 04/26/2014 [facility] Oliverio Matias MD 04/26/2014 Office visit Trena Ulysses MANAGER EMS 02/23/2014 Office visit Trena Ulysses MANAGER EMS 02/10/2014 Office visit Leno Hernandez DO 01/18/2014 Office visit Trena Arora MANAGER EMS 02/05/2012 Office visit Bryan Tracy MD 01/30/2012 [facility] Bryan Tracy MD 01/27/2012 Office visit Bryan Tracy MD 01/22/2012 Office visit Bryan Tracy MD 01/02/2012 [facility] Oliverio Matias MD 05/09/2011 [facility] Oliverio Matias MD 10/22/2010 [facility] Lashonda Abdalla MD
--- OUTSIDE RECORDS SUMMARY | 2017-08-25 06:49 | XMS REPORT ---
Author Author Trena Arora [facility] Address [address] [place], [place] [address] Care Team Providers Care Foam Machine Operator Name Role Phone Trena Arora PCP Unavailable Allergies and Adverse Reactions Name Reaction Notes Raspberries Mushroom Aspirin Keflex Vistaril Bactrim DS Plan of Treatment Planned Activity Comments Planned Date Planned Time Plan/Goal COMPLETE CBC W/AUTO DIFF WBC 12/25/2015 12:00 AM COMPREHEN METABOLIC PANEL 12/25/2015 12:00 AM LIPID PANEL 12/25/2015 12:00 AM GLYCOSYLATED HEMOGLOBIN TEST 12/25/2015 12:00 AM recurrent UTI ELECTROCARDIOGRAM COMPLETE 04/26/2014 12:00 AM ELECTROCARDIOGRAM TRACING 04/26/2014 12:00 AM ELECTROCARDIOGRAM REPORT 04/26/2014 12:00 AM ELECTROCARDIOGRAM COMPLETE 05/10/2015 12:00 AM CARDIOVASCULAR STRESS TEST 05/10/2015 12:00 AM Medications Active Name Start Date Estimated Completion Date SIG Comments lisinopril-hydrochlorothiazide 20-12.5 mg oral tablet 12/25/2015 take 1 tablet by oral route once daily Name Start Date Expiration Date SIG Comments [...] prednisone 10 mg oral tablet 05/10/2015 08/08/2015 Ugox97eg(6 tabs) daily for 5 days, then 50mg [...] HC BMI BSA BMI Percentile O2 Sat(%) 12/25/2015 9:35:00 AM 144 mmHg 82 mmHg [...] AUTO W/O SCOPE Reviewed 12/25/2015 12:00 AM Rocephin 1 gram [facility]#[id number] Reviewed 12/25/2015 12:00 AM THER/PROPH/DIAG INJ SC/IM [...] 0.50 mg/dLCALCIUM 9.0 mg/ dLeGFR >60 mL/min/1.73 [id number] YELLOW APPEARANCE CLEAR SPEC GRAV 1.020 pH [...] BILI 0.40 mg/dLCALCIUM 9.20 mg/dLeGFR >60 mL/min/1.73 [id number] AD <0.04 ng/mLEst Avg Glucose 131.2 [...] positive WBC Est Ur Ql Strip large History Of Immunizations Not available. History of [...] Policy Group Number Start Date BCBS [employer] [place] [id number] N/A [facility] Plan [facility] [id number] N/A [facility] - RHC - Community Plan [facility] RHC Comm [id number] Saturday, 2012 [facility] Plan of [id number] N/A History of Encounters Visit Date Visit Type Provider 12/25/2015 Office visit Trena Arora POWER PRESS OPERATOR 08/08/2015 Office visit Trena Arora POWER PRESS OPERATOR 05/10/2015 Office visit Trena Arora APRN 05/02/2015 Office visit Trena Arora APRN 02/16/2015 Office visit Trena Arora APRN 08/24/2014 Office visit Trena Arora APRN 08/05/2014 Office visit Trena Arora POWER PRESS OPERATOR 04/26/2014 Hospital Oliverio Matias MD 04/26/2014 Office visit Trena Arora APRN 02/23/2014 Office visit Trena Arora APRN 02/10/2014 Office visit Leno Hernandez DO 01/18/2014 Office visit Trena Arora APRN 02/05/2012 Office visit Bryan Tracy MD 01/30/2012 Hospital Bryan Tracy MD 01/27/2012 Office visit Bryan Tracy MD 01/22/2012 Office visit Bryan Tracy MD 01/02/2012 Hospital Oliverio Matias MD 05/09/2011 Hospital Oliverio Matias MD 10/22/2010 [facility] Lashonda Abdalla MD
--- OUTSIDE RECORDS SUMMARY | 2017-08-25 06:50 | XMS REPORT | CCD ---
Author Author EDUAR CARTER Organization Unknown Address [address] [place] [address] Care Team Providers Care Shoe Laster Name Role Phone DENISE ACE, GREGORIO Chery Attphys GREGORIO WALKER MD [place] Allergies Allergy Code Allergy Type Reaction Status VISTARIL 091396 Drug allergy Active KEFLEX 443858 Drug allergy Active ASPIRIN 1191 Drug allergy SOB QUIT BREATHING Active BACTRIM 164465 Drug allergy Active Active Medications Unknown or Not Available. Problems Unknown or Not Available. Procedures Procedure Code Procedure Type Date CX CHEST [address] 12/31/2016 TROPONIN-I ADV 570893376 SNOMED CT 12/31/[address] 12/31/2016 CULTURE BLOOD 98643306 SNOMED CT 12/31/2016 CBC W/ AUTO DIFF (RFLX MAN DIFF IF IND) 0418286 SNOMED CT 12/31/2016 COMPREHENSIVE METABOLIC PANEL 133305762 SNOMED CT 2016 ^CBC W/AUTO DIFF 8535497 SNOMED CT 12/31/2016 Results COMPREHENSIVE METABOLIC PANEL - Collect Date/Time: 12/31/2016 20:25 Test Name Code Test Result Test Units Test Ref Range GLUCOSE 2345-7 138 MG/DL L=70 H=100 SODIUM 2951-2 139 MEQ/L L=135 H=148 POTASSIUM 2823-3 3.8 MEQ/L L=3.5 H=5.3 CHLORIDE 2075-0 105 MEQ/L L=96 H=110 CO2 2028-9 23 MEQ/L L=22 H=29 BUN 3094-0 15 MG/DL L=8 H=22 CREATININE 2160-0 0.9 MG/DL L=0.6 H=1.6 SGOT/AST 1920-8 20 IU/L L=10 H=40 SGPT/ALT 1742-6 28 IU/L L=8 H=54 ALK PHOS 6768-6 82 IU/L L=35 H=115 TOTAL PROTEIN 2885-2 7.5 G/DL L=5.5 H=8.5 ALBUMIN 1751-7 4.0 G/DL L=3.1 H=5.4 TOTAL BILI 1975-2 0.4 MG/DL L=0.0 H=1.5 CALCIUM 42836-1 9.3 MG/DL L=8.2 H=10.6 AGE 41 yrs GFR NonAA 92 GFR AA 112 eGFR >60 N/A eGFR AA* >60 N/A MAGNESIUM - Collect Date/Time: 12/31/2016 20:25 Test Name Code Test Result Test Units Test Ref Range MAGNESIUM 06309-2 2.7 MG/DL L=1.7 H=2.8 CBC W/ AUTO DIFF (RFLX MAN DIFF IF IND) - Collect Date/Time: 12/31/2016 20:25 Test Name Code Test Result Test Units Test Ref Range WBC 42869-6 7.6 TH/CMM L=4.5 H=10.8 RBC 789-8 5.36 ML/CMM L=4.70 H=6.10 HGB 718-7 14.8 G/DL L=14.0 H=18.0 HCT 4544-3 44.9 % L=42.0 H=52.0 MCV 84 FL L=81 H=99 MCH 27.6 PG L=27.0 H=33.0 MCHC 33.0 G/DL L=31.0 H=36.0 RDW SD 41 FL L=36 H=50 RDW CV 13.3 % L=0.0 H=14.8 MPV 9.5 FL L=9.3 H=12.5 PLT 777-3 271 TH/CMM L=130 H=440 NRBC# 0.00 TH/CMM L=0.00 H=0.00 NRBC% 0.0 /100WBC L=0.0 H=2.0 %NEUT 54.8 % %LYMP 34.0 % %MONO 8.0 % %EOS 2.5 % %BASO 0.4 % #NEUT 4.18 TH/CMM L=2.10 H=8.20 #LYMP 2.59 TH/CMM L=0.90 H=5.20 #MONO 0.61 TH/CMM L=0.16 H=1.00 #EOS 0.19 TH/CMM L=0.00 H=0.80 #BASO 0.03 TH/CMM L=0.00 H=0.20 MANUAL DIFF NOT IND N/A PT/PTT - Collect Date/Time: 12/31/2016 20:25 Test Name Code Test Result Test Units Test Ref Range PROTIME 5964-2 10.4 SEC L=9.9 H=11.9 INR 57103-1 1.0 PTT 3173-2 25.7 SEC L=22.2 H=37.2 TROPONIN-I ADV - Collect Date/Time: 12/31/2016 20:25 Test Name Code Test Result Test Units [place] [address]-7 <0.04 ng/mL L=0.04 H= 0.40 Function Status Unknown or Not Available. History of Immunizations Immunization Code Date Influenza, seasonal, injectable 141 08/20/2013 Plan of Treatment Unknown or Not Available. Social History Smoking Status Code Start Date End Date Never smoker 064413647 Vital Signs Unknown or Not Available. Function Status Unknown or Not Available. Goals Unknown or Not Available. ASSESSMENTS Unknown or Not Available. Health Concerns Section Unknown or Not Available.
--- OUTSIDE RECORDS SUMMARY | 2017-08-25 06:50 | XMS REPORT ---
Author Author [facility] Organization [facility] Address [address] [place], [place] [address] Care Team Providers Care Airline Counter Agent Name Role Phone PCP Unavailable Allergies and Adverse Reactions Name Reaction Notes Raspberries Mushroom Aspirin Keflex Vistaril Bactrim DS Plan of Treatment Not available. Medications Active Name Start Date Estimated Completion Date SIG Comments acyclovir oral tablet 400 mg 05/10/2015 05/17/2015 take 1 tablet by oral route 5 times a day for 7 days prednisone oral tablet 10 mg 05/10/2015 [id number](6 tabs) daily for 5 days, then 50mg for 1 day then 40mg for 1 day, then 3omg for 1 day and 20mg for 1 day then 10mg for 1 day Lipitor oral tablet 20 mg 05/16/2015 09/13/2015 take 1 tablet (20 mg) by oral route once daily at bedtime for 30 days Name Start Date Expiration Date SIG [...] 0.50 mg/dLCALCIUM 9.0 mg/ dLeGFR >60 mL/min/1.73 u3ICUAH YELLOW APPEARANCE CLEAR SPEC GRAV 1.020 pH [...] BILI 0.40 mg/dLCALCIUM 9.20 mg/dLeGFR >60 mL/min/1.73 [id number] I AD <0.04 ng/mLHGB A1C 6.20 % 05/15/2015 8:15 AM TRIGLYCERIDES 260.0 mg/dLCHOLESTEROL 184.0 mg/dLHDL 35.0 mg/ dLLDL (CALC) 97.0 mg/dL History Of Immunizations Not available. History of [...] Policy Number Policy Group Number Start Date [facility] [id number] N/A [facility] Comm [id number] Saturday, 2012 [facility] Comm Plan of [id number] N/A History of Encounters Visit Date Visit Type Provider 05/10/2015 Office visit Trena Arora ADULT LITERACY TEACHER 05/02/2015 Office visit Trena Ulysses ADULT LITERACY TEACHER 02/16/2015 Office visit Trena Ulysses ADULT LITERACY TEACHER 08/24/2014 Office visit Trena Arora ADULT LITERACY TEACHER 08/05/2014 Office visit Trena Arora ADULT LITERACY TEACHER 04/26/2014 Office visit Trena Ulysses ADULT LITERACY TEACHER 04/26/2014 [facility] Oliverio Matias MD 02/23/2014 Office visit Trena Arora ADULT LITERACY TEACHER 02/10/2014 Office visit Leno Hernandez DO 01/18/2014 Office visit Trena Arora ADULT LITERACY TEACHER 02/05/2012 Office visit Bryan Tracy MD 01/30/2012 [facility] Bryan Tracy MD 01/27/2012 Office visit Bryan Tracy MD 01/22/2012 Office visit Bryan Tracy MD 01/02/2012 [facility] Oliverio Matias MD 05/09/2011 [facility] Oliverio Matias MD 10/22/2010 [facility] Lashonda Abdalla MD
--- OUTSIDE RECORDS SUMMARY | 2017-08-25 06:50 | XMS REPORT | CCD ---
Author Author MIROSLAVA TUCKER Unknown Address [address] [place], [place] [address] Care Team Providers Care Fabrication Machine Operator Name Role Phone DENISE ACE, GREGORIO Chery Attphys GREGORIO WALKER MDsudomingo Vital Signs Unknown or Not Available. Allergies Allergy Code Allergy Type Reaction Status CEPHALEXIN 2231 Drug allergy SOB QUIT BREATHING Active RASPBERRY 0 Food allergy Active VISTARIL 798635 Drug allergy Active KEFLEX 727013 Drug allergy Active HYDROXYZINE 5553 Drug allergy BECAME VIOLENT Active ASPIRIN 1191 Drug allergy SOB QUIT BREATHING Active blueberry {Clinical monitoring unavailable} 0 Food allergy Active mushrooms {Clinical monitoring unavailable} 0 Food allergy Active BACTRIM 543416 Drug allergy Active Procedures Procedure Code Procedure Type Date CX CHEST [address] 07/07/2016 TROPONIN-I ADV 913089182 SNOMED CT 07/07/[address] 07/07/2016 CULTURE BLOOD 39141266 SNOMED CT 07/07/2016 CBC W/ AUTO DIFF (RFLX MAN DIFF IF IND) 7993825 SNOMED CT 07/07/2016 COMPREHENSIVE METABOLIC PANEL 132969508 SNOMED CT 2015 D DIMER QUANT 751116347 SNOMED CT 07/07/2016 ^CBC W/AUTO DIFF 9030143 SNOMED CT 07/07/2016 History of Immunizations Immunization Code Date Influenza, seasonal, injectable 141 08/20/2013 Problems Unknown or Not Available. Results COMPREHENSIVE METABOLIC PANEL - Collect Date/Time: 07/07/2016 07:30 Test Name Code Test Result Test Units Test Ref Range GLUCOSE 2345-7 228 MG/DL L=70 H=100 SODIUM 2951-2 139 MEQ/L L=135 H=148 POTASSIUM 2823-3 3.8 MEQ/L L=3.5 H=5.3 CHLORIDE 2075-0 105 MEQ/L L=96 H=110 CO2 2028-9 22 MEQ/L L=22 H=29 BUN 3094-0 12 MG/DL L=8 H=22 CREATININE 2160-0 1.0 MG/DL L=0.6 H=1.6 SGOT/AST 1920-8 13 IU/L L=10 H=40 SGPT/ALT 1742-6 17 IU/L L=8 H=54 ALK PHOS 6768-6 71 IU/L L=35 H=115 TOTAL PROTEIN 2885-2 6.9 G/DL L=5.5 H=8.5 ALBUMIN 1751-7 3.8 G/DL L=3.1 H=5.4 TOTAL BILI 1975-2 0.4 MG/DL L=0.0 H=1.5 CALCIUM 05518-5 8.6 MG/DL L=8.2 H=10.6 AGE 40 yrs GFR NonAA 82 GFR AA 99 eGFR >60 N/A eGFR AA* >60 N/A CBC W/ AUTO DIFF (RFLX MAN DIFF IF IND) - Collect Date/Time: 07/07/2016 07:30 Test Name Code Test Result Test Units Test Ref Range WBC 84115-2 6.9 TH/CMM L=4.5 H=10.8 RBC 789-8 5.00 ML/CMM L=4.70 H=6.10 HGB 718-7 13.9 G/DL L=14.0 H=18.0 HCT 4544-3 42.5 % L=42.0 H=52.0 MCV 85 FL L=81 H=99 MCH 27.8 PG L=27.0 H=33.0 MCHC 32.7 G/DL L=31.0 H=36.0 RDW SD 42 FL L=36 H=50 RDW CV 13.7 % L=0.0 H=14.8 MPV 9.3 FL L=9.3 H=12.5 PLT 777-3 223 TH/CMM L=130 H=440 NRBC# 0.00 TH/CMM L=0.00 H=0.00 NRBC% 0.0 /100WBC L=0.0 H=2.0 %NEUT 51.3 % %LYMP 33.6 % %MONO 9.3 % %EOS 4.3 % %BASO 0.6 % #NEUT 3.55 TH/CMM L=2.10 H=8.20 #LYMP 2.32 TH/CMM L=0.90 H=5.20 #MONO 0.64 TH/CMM L=0.16 H=1.00 #EOS 0.30 TH/CMM L=0.00 H=0.80 #BASO 0.04 TH/CMM L=0.00 H=0.20 MANUAL DIFF NOT IND N/A D DIMER QUANT - Collect Date/Time: 07/07/2016 07:30 Test Name Code Test Result Test Units Test Ref Range D-DIMER QUANT 85009-1 0.46 MG/L FEU L=0.00 H= 0.50 PT/PTT - Collect Date/Time: 07/07/2016 07:30 Test Name Code Test Result Test Units Test Ref Range PROTIME 53741-2 10.1 SEC L=9.9 H=11.9 INR 0.9 PTT 3173-2 25.5 SEC L=22.2 H=37.2 TROPONIN-I ADV - Collect Date/Time: 07/07/2016 07:30 Test Name Code Test Result Test Units Test [place] [address]-7 <0.04 ng/mL L=0.04 H= 0.40 MAGNESIUM - Collect Date/Time: 07/07/2016 07:30 Test Name Code Test Result Test Units Test Ref Range MAGNESIUM 11994-6 2.2 MG/DL L=1.7 H=2.8 Active Medications Unknown or Not Available. Medications Administered During Visit Unknown or Not Available. Encounters Encounter Diagnosis Diagnosis Code Start Date Lobar pneumonia [id number] 07/07/2016 Social History Smoking Status Code Start Date End Date Never smoker 951962380 Patient Decision Aids Unknown or Not Available. Discharge Instructions You were admitted to [facility] on 07/07/2016 07:12 with a principal diagnosis of Lobar pneumonia, unspecified organism You had the following tests done: CBC W/ AUTO DIFF (RFLX MAN DIFF IF IND) COMPREHENSIVE METABOLIC PANEL D DIMER QUANT MAGNESIUM PT/PTT TROPONIN-I ADV You were discharged from [facility] on 07/07/2016 08:45 Should you have any questions prior to discharge, please contact a member of your healthcare team. If you have left the hospital and have any questions, please contact your primary care physician. Chief Complaint and Reason For Visit Chief Complaint Date of Onset SYNCOPE Function Status Unknown or Not Available. Plan of Care Unknown or Not Available. Referral/Transition of Care Unknown or Not Available.
--- OUTSIDE RECORDS SUMMARY | 2017-08-25 06:50 | XMS REPORT ---
Author Author Arturo Benitez [facility] Address [address] [place], [place] [address] Care Team Providers Care High School Biology Teacher Name Role Phone Arturo Benitez PCP Unavailable [...] route 3 times per day with food Homer 10-325 mg oral tablet 09/13/2016 take 1 tablet by oral route every [...] prednisone 10 mg oral tablet 05/10/2015 08/08/2015 [id number](6 tabs) daily for 5 days, then 50mg [...] HC BMI BSA BMI Percentile O2 Sat(%) 09/13/2016 9:52:00 AM 136 mmHg 86 mmHg 77 bpm 18 rpm 97.3 F 263 lbs 69 in 38.84 kg/m2 2.41 m2 96 % 08/15/2016 10:20:00 AM 144 mmHg 90 mmHg 64 bpm 18 rpm 97.6 F 266 lbs 69 in 39.2809 kg/m 2.4236 m 96 % 06/21/2016 9:47:00 AM 138 mmHg 84 mmHg 85 bpm 18 rpm 96.6 F 256 lbs 69 in 37.80 kg/m2 2.38 m2 97 % 05/17/2016 8:51:00 AM 148 mmHg 80 mmHg 72 bpm 18 rpm 97.2 F 250 lbs 69 in 36.9182 kg/m 2.3496 m 96 % 03/14/2016 2:01:00 PM 132 mmHg 84 mmHg 78 bpm 16 rpm 98.8 F 250 lbs 69 in 36.92 kg/m2 2.35 m2 95 % 02/13/2016 1:41:00 PM 150 mmHg 90 mmHg 78 bpm 18 rpm 97.1 F 252 lbs 69 in 37.2135 kg/m 2.359 m 96 % 12/27/2015 9:58:00 AM 82 bpm [...] Returned 12/25/2015 12:00 AM Rocephin 1 gram [facility]#[id number] Reviewed 12/25/2015 12:00 AM THER/PROPH/DIAG INJ SC/IM Reviewed 02/13/2016 12:00 AM CHEST X-RAY 2VW FRONTAL&LATL Reviewed 03/14/2016 12:00 AM X-RAY EXAM L-S SPINE 12/20 VWS Returned 01/18/2014 12:00 AM COMPLETE CBC [...] 0.50 mg/dLCALCIUM 9.0 mg/ dLeGFR >60 mL/min/1.73 [id number] YELLOW APPEARANCE CLEAR SPEC GRAV 1.020 pH [...] BILI 0.40 mg/dLCALCIUM 9.20 mg/dLeGFR >60 mL/min/1.73 [id number]- I AD <0.04 ng/mLEst Avg Glucose 131.2 [...] Low Back Pain Sep 13 2016 10:02AM Payers Insurance Name Company Name Plan Name Plan Number Policy Number Policy Group Number Start Date zzzTest Medicare A Test Medicare A [id number] N/A [facility] Comm [id number] Saturday, 2012 [facility] Comm Plan of [id number] N/A BCBS [employer]cbs [facility] [id number] N/A History of Encounters Visit Date Visit Type Provider 09/13/2016 Office visit Arturo Benitez MD 08/15/2016 Office visit Arturo Benitez MD 07/07/2016 [facility] Oliverio Matias MD 06/21/2016 Office visit Arturo Benitez MD 05/17/2016 Office visit Arturo Benitez MD 05/02/2016 [facility] Oliverio Matias MD 03/14/2016 Office visit Arturo Benitez MD 02/13/2016 Office visit Arturo Benitez MD 01/08/2016 [facility] Wes Ochoa MD 12/27/2015 Office visit Wes Ochoa MD 12/25/2015 Office visit Trena Arora POWER GENERATION TURBINE ROOM OPERATOR 08/08/2015 Office visit Trena Arora POWER GENERATION TURBINE ROOM OPERATOR 05/10/2015 Office visit Trena Walker POWER GENERATION TURBINE ROOM OPERATOR 05/02/2015 Office visit Trena Walker POWER GENERATION TURBINE ROOM OPERATOR 02/16/2015 Office visit Trena Walker POWER GENERATION TURBINE ROOM OPERATOR 08/24/2014 Office visit Trena Walker POWER GENERATION TURBINE ROOM OPERATOR 08/05/2014 Office visit Trena Arora POWER GENERATION TURBINE ROOM OPERATOR 04/26/2014 [facility] Oliverio Matias MD 04/26/2014 Office visit Trena Arora POWER GENERATION TURBINE ROOM OPERATOR 02/23/2014 Office visit Trena Walker POWER GENERATION TURBINE ROOM OPERATOR 02/10/2014 Office visit Leno Hernandez DO 01/18/2014 Office visit Trena Arora POWER GENERATION TURBINE ROOM OPERATOR 02/05/2012 Office visit Bryan Tracy MD 01/30/2012 [facility] Bryan Tracy MD 01/27/2012 Office visit Bryan Tracy MD 01/22/2012 Office visit Bryan Tracy MD 01/02/2012 [facility] Oliverio Matias MD 05/09/2011 [facility] Oliverio Matias MD 10/22/2010 [facility] Lashonda Abdalla MD
--- OUTSIDE RECORDS SUMMARY | 2017-08-25 06:51 | XMS REPORT ---
Author Author Trena Arora [facility] Address [address] [place], [place] [address] Care Team Providers Care Bakery Worker Name Role Phone Trena Arora PCP Unavailable [...] prednisone 10 mg oral tablet 05/10/2015 08/08/2015 [id number](6 tabs) daily for 5 days, then 50mg [...] Reviewed 12/25/2015 12:00 AM Rocephin 1 gram [facility]#[id number] Reviewed 12/25/2015 12:00 AM THER/PROPH/DIAG INJ SC/IM [...] 0.50 mg/dLCALCIUM 9.0 mg/ dLeGFR >60 mL/min/1.73 [id number] YELLOW APPEARANCE CLEAR SPEC GRAV 1.020 pH [...] BILI 0.40 mg/dLCALCIUM 9.20 mg/dLeGFR >60 mL/min/1.73 [id number]- I AD <0.04 ng/mLEst Avg Glucose 131.2 [...] Group Number Start Date [employer]BS [employer] [place] [id number] N/A [facility] Health Plan Formerly [facility] [id number] N/A [facility] - Community Plan [facility]HC Comm [id number] Saturday, 2012 [facility] Plan of [id number] N/A History of Encounters Visit Date Visit Type Provider 12/25/2015 Office visit Trena Arora VERIFYING SPECIALIST 08/08/2015 Office visit Trena Arora VERIFYING SPECIALIST 05/10/2015 Office visit Trena Arora APRN 05/02/2015 Office visit Trena Arora APRN 02/16/2015 Office visit Trena Arora APRN 08/24/2014 Office visit Trena Arora APRN 08/05/2014 Office visit Trena Arora VERIFYING SPECIALIST 04/26/2014 [facility] Oliverio Matias MD 04/26/2014 Office visit Trena Arora APRN 02/23/2014 Office visit Trena Arora APRN 02/10/2014 Office visit Leno Hernandez DO 01/18/2014 Office visit Trena Arora APRN 02/05/2012 Office visit Bryan Tracy MD 01/30/2012 Hospital Bryan Tracy MD 01/27/2012 Office visit Bryan Tracy MD 01/22/2012 Office visit Bryan Tracy MD 01/02/2012 Hospital Oliverio Matias MD 05/09/2011 Hospital Oliverio Matias MD 10/22/2010 [facility] Lashonda Abdalla MD
--- OUTSIDE RECORDS SUMMARY | 2017-08-25 06:52 | XMS REPORT | CCD ---
Author Author JAKY TYLER Organization Unknown Address [address] [facility] [address] [place], [place] [address] Care Team Providers Care Field Collector Name Role Phone HILLIARD, MARS DO Attphys HILLIARD, MARS DO Prisurg Vital Signs Unknown or Not Available. 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 Drug allergy SOB QUIT BREATHING Active blueberry {Clinical monitoring unavailable} 0 Food allergy Active mushrooms {Clinical monitoring unavailable} 0 Food allergy Active BACTRIM 967270 Drug allergy Active Procedures Procedure Code Procedure Type Date CT ABD AND PELVIS W/O CONTRAST 669334380 SNOMED CT 2015 PSA TOTAL 74494440 SNOMED CT 12/24/2015 ^UA WITH MICRO 942388768 SNOMED CT 12/24/2015 CULTURE URINE 514654094 SNOMED CT 12/24/2015 UA ROUTINE C&S IF IND 917963739 SNOMED CT 12/24/2015 History of Immunizations Immunization Code Date Influenza, seasonal, injectable 141 08/20/2013 Problems Unknown or Not Available. Results UA ROUTINE C&S IF IND - Collect Date/Time: 12/24/2015 11:38 Test Name Code Test Result Test Units Test Ref Range COLOR YELLOW N/A NL: YELLOW APPEARANCE CLOUDY N/A NL: CLEAR SPEC GRAV 1.010 N/A NL: 1.002 - 1.022 pH 7.0 N/A NL: 5 - 9 PROTEIN NEGATIVE N/A NL: NEGATIVE mg/dl GLUCOSE NEGATIVE N/A NL: NEGATIVE mg/dl KETONE NEGATIVE N/A NL: NEGATIVE mg/dl BILIRUBIN NEGATIVE N/A NL: NEGATIVE BLOOD TRACE-INTACT N/A NL: NEGATIVE NITRITE POSITIVE N/A NL: NEGATIVE LEUK SCREEN MODERATE N/A NL: NEGATIVE MICRO INDICATED? SEE BELOW N/A WBC/HPF 5-10 N/A NL: NEGATIVE RBC/HPF 0-5 N/A NL: NEGATIVE CASTS/LPF NEGATIVE N/A NL: NEGATIVE CRYSTALS TRACE AMORPH N/A NL: NEGATIVE MUCOUS THRDS NEGATIVE N/A NL: NEGATIVE BACTERIA 3+++ N/A NL: NEGATIVE EPITH CELLS FEW SQUAMOUS N/A NL: NEGATIVE TRICHOMONAS NEGATIVE N/A NL: NEGATIVE YEAST NEGATIVE N/A NL: NEGATIVE CULT SET UP? YES N/A PSA TOTAL - Collect Date/Time: 12/24/2015 13:00 Test Name Code Test Result Test Units Test Ref Range PSA TOTAL 2857-1 0.37 NG/ML L=0.06 H=4.00 Active Medications Unknown or Not Available. Medications Administered During Visit Unknown or Not Available. Encounters Encounter Diagnosis Diagnosis Code Start Date Urinary tract infectious disease 52693245 12/24/2015 Social History Smoking Status Code Start Date End Date Never smoker 136496217 Patient Decision Aids Unknown or Not Available. Discharge Instructions You were admitted to [facility] on 12/24/2015 with a principal diagnosis of Urinary tract infectious disease . You were discharged from [facility] on 12/24/2015. Should you have any questions prior to discharge, please contact a member of your healthcare team. If you have left the hospital and have any questions, please contact your primary care physician. Chief Complaint and Reason For Visit Chief Complaint Date of Onset LOW BACK PAIN Function Status Unknown or Not Available. Plan of Care Unknown or Not Available. Referral/Transition of Care Unknown or Not Available.
--- OUTSIDE RECORDS SUMMARY | 2017-08-25 06:52 | XMS REPORT ---
Author Author Arturo Benitez [facility] Address [address] [place], [place] [address] Care Team Providers Care Manager Camp Name Role Phone Arturo Benitez PCP Unavailable [...] route 3 times per day with food Starr 10-325 mg oral tablet 09/13/2016 take 1 [...] prednisone 10 mg oral tablet 05/10/2015 08/08/2015 [id number](6 tabs) daily for 5 days, then 50mg [...] Returned 12/25/2015 12:00 AM Rocephin 1 gram [facility]#[id number] Reviewed 12/25/2015 12:00 AM THER/PROPH/DIAG INJ SC/IM [...] 0.50 mg/dLCALCIUM 9.0 mg/ dLeGFR >60 mL/min/1.73 u4PRUXV YELLOW APPEARANCE CLEAR SPEC GRAV 1.020 pH [...] BILI 0.40 mg/dLCALCIUM 9.20 mg/dLeGFR >60 mL/min/1.73 [id number]- I AD <0.04 ng/mLEst Avg Glucose 131.2 [...] Date zzzTest Medicare A Test Medicare A [id number] N/A [facility] Comm [id number] Saturday, 2012 [facility] Comm Plan of [id number] N/A BCBS [employer]cbs [facility] [id number] N/A History of Encounters Visit Date Visit Type Provider 09/13/2016 Office visit Arturo Benitez MD 08/15/2016 Office visit Arturo Benitez MD 07/07/2016 [facility] Oliverio Matias MD 06/21/2016 Office visit Arturo Benitez MD 05/17/2016 Office visit Arturo Benitez MD 05/02/2016 [facility] Oliverio Matias MD 03/14/2016 Office visit Arturo Benitez MD 02/13/2016 Office visit Arturo Benitez MD 01/08/2016 [facility] Wes Ochoa MD 12/27/2015 Office visit Wes Ochoa MD 12/25/2015 Office visit Trena Arora RESIDENTIAL SOLAR CONSULTANT 08/08/2015 Office visit Trena Arora RESIDENTIAL SOLAR CONSULTANT 05/10/2015 Office visit Trena Walker RESIDENTIAL SOLAR CONSULTANT 05/02/2015 Office visit Trena Walker RESIDENTIAL SOLAR CONSULTANT 02/16/2015 Office visit Trena Walker RESIDENTIAL SOLAR CONSULTANT 08/24/2014 Office visit Trena Walker RESIDENTIAL SOLAR CONSULTANT 08/05/2014 Office visit Trena Arora RESIDENTIAL SOLAR CONSULTANT 04/26/2014 [facility] Oliverio Matias MD 04/26/2014 Office visit Trena Arora RESIDENTIAL SOLAR CONSULTANT 02/23/2014 Office visit Trena Walker RESIDENTIAL SOLAR CONSULTANT 02/10/2014 Office visit Leno Hernandez DO 01/18/2014 Office visit Trena Arora RESIDENTIAL SOLAR CONSULTANT 02/05/2012 Office visit Bryan Tracy MD 01/30/2012 [facility] Bryan Tracy MD 01/27/2012 Office visit Bryan Tracy MD 01/22/2012 Office visit Bryan Tracy MD 01/02/2012 [facility] Oliverio Matias MD 05/09/2011 [facility] Oliverio Matias MD 10/22/2010 [facility] Lashonda Abdalla MD
--- OUTSIDE RECORDS SUMMARY | 2017-08-25 06:53 | XMS REPORT ---
Author Author Trena Arora [facility] Address [address] [place], [place] [address] Care Team Providers Care Water Control Station Engineer Name Role Phone Trena Arora PCP Unavailable Allergies and Adverse Reactions Name Reaction Notes Raspberries Mushroom Aspirin Keflex Vistaril Bactrim DS Plan of Treatment Planned Activity Comments Planned Date Planned Time Plan/Goal ELECTROCARDIOGRAM COMPLETE 04/26/2014 12:00 AM ELECTROCARDIOGRAM TRACING 04/26/2014 12:00 AM ELECTROCARDIOGRAM REPORT 04/26/2014 12:00 AM ELECTROCARDIOGRAM COMPLETE 05/10/2015 12:00 AM CARDIOVASCULAR STRESS TEST 05/10/2015 12:00 AM Medications Active Name Start Date Estimated Completion Date SIG Comments omeprazole 40 mg oral capsule,delayed release(DR/EC) 08/08/2015 11/06/2015 take 1 capsule by oral route daily for 30 days lisinopril-hydrochlorothiazide 20-12.5 mg oral tablet 08/08/2015 11/06/2015 take 2 tablets by oral route daily for 30 days Name Start Date Expiration [...] 5 times a day for 7 days Discontinued Name Start Date [...] prednisone 10 mg oral tablet 05/10/2015 08/08/2015 [id number](6 tabs) daily for 5 days, then 50mg [...] HC BMI BSA BMI Percentile O2 Sat(%) 08/08/2015 10:26:00 AM 140 mmHg 80 mmHg [...] 08/08/2015 12:00 AM FIBRIN DEGRADATION QUANT Returned 01/18/2014 12:00 AM COMPLETE CBC W/AUTO [...] 0.50 mg/dLCALCIUM 9.0 mg/ dLeGFR >60 mL/min/1.73 s2UCCER YELLOW APPEARANCE CLEAR SPEC GRAV 1.020 pH [...] BILI 0.40 mg/dLCALCIUM 9.20 mg/dLeGFR >60 mL/min/1.73 [id number]- I AD <0.04 ng/mLHGB A1C 6.20 %Est Avg Glucose 131.2 mg/dL 05/15/2015 8:15 AM TRIGLYCERIDES 260.0 mg/dLCHOLESTEROL 184.0 mg/dLHDL 35.0 mg/ dLLDL (CALC) 97.0 mg/dL 08/08/2015 11:00 AM D-DIMER QUANT 0.46 History Of Immunizations Not available. History of [...] Policy Number Policy Group Number Start Date [facility] [id number] N/A [facility] - Community [facility] Comm [id number] Saturday, 2012 [facility] Comm Plan of [id number] N/A History of Encounters Visit Date Visit Type Provider 08/08/2015 Office visit Trena Arora DEFENSIVE 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 05/10/2015 Office visit Trena Arora DEFENSIVE 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 05/02/2015 Office visit Trena Arora DEFENSIVE 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 02/16/2015 Office visit Trena Arora DEFENSIVE 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 08/24/2014 Office visit Trena Arora DEFENSIVE 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 08/05/2014 Office visit Trena Arora DEFENSIVE 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 04/26/2014 [facility] Oliverio Matias MD 04/26/2014 Office visit Trena Arora DEFENSIVE 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 02/23/2014 Office visit Trena Arora DEFENSIVE 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 02/10/2014 Office visit Leno Hernandez DO 01/18/2014 Office visit Trena Arora DEFENSIVE 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 02/05/2012 Office visit Bryan Tracy MD 01/30/2012 [facility] Bryan Tracy MD 01/27/2012 Office visit Bryan Tracy MD 01/22/2012 Office visit Bryan Tracy MD 01/02/2012 [facility] Oliverio Matias MD 05/09/2011 [facility] Oliverio Matias MD 10/22/2010 [facility] Lashonda Abdalla MD
--- OUTSIDE RECORDS SUMMARY | 2017-08-25 06:54 | XMS REPORT ---
Author Author Arturo Benitez [facility] Address [address] [place], [place] [address] Care Team Providers Care Make Up Worker Name Role Phone Arturo Benitez PCP Unavailable [...] route 3 times per day with food [place] 10-325 mg oral tablet 06/21/2016 take 1 tablet by oral route every [...] prednisone 10 mg oral tablet 05/10/2015 08/08/2015 [id number](6 tabs) daily for 5 days, then 50mg [...] HC BMI BSA BMI Percentile O2 Sat(%) 06/21/2016 9:47:00 AM 138 mmHg 84 mmHg [...] Returned 12/25/2015 12:00 AM Rocephin 1 gram [facility]#[id number] Reviewed 12/25/2015 12:00 AM THER/PROPH/DIAG INJ SC/IM [...] 0.50 mg/dLCALCIUM 9.0 mg/ dLeGFR >60 mL/min/1.73 [id number] YELLOW APPEARANCE CLEAR SPEC GRAV 1.020 pH [...] BILI 0.40 mg/dLCALCIUM 9.20 mg/dLeGFR >60 mL/min/1.73 [id number]- I AD <0.04 ng/mLHGB A1C 6.20 %Est [...] 9:52AM Seizure Disorder Jun 21 2016 9:52AM Payers Insurance Name Company Name Plan Name Plan Number Policy Number Policy Group Number Start Date zzzTest Medicare A Test Medicare A [id number] N/A [facility] - Community [facility] Comm [id number] Saturday, 2012 [facility] Comm Plan of [id number] N/A BCBS Bcbs [facility] [id number] N/A History of Encounters Visit Date Visit Type Provider 06/21/2016 Office visit Arturo Benitez MD 05/17/2016 Office visit Arturo Benitez MD 05/02/2016 Hospital Oliverio Matias MD 03/14/2016 Office visit Arturo Benitez MD 02/13/2016 Office visit Arturo Benitez MD 01/08/2016 Hospital Wes Ochoa MD 12/27/2015 Office visit Wes Ochoa MD 12/25/2015 Office visit Trena Walker SAMPLE WEAVER 08/08/2015 Office visit Trena Walker SAMPLE WEAVER 05/10/2015 Office visit Trena Walker SAMPLE WEAVER 05/02/2015 Office visit Trena Walker SAMPLE WEAVER 02/16/2015 Office visit Trena Walker SAMPLE WEAVER 08/24/2014 Office visit Trena Walker SAMPLE WEAVER 08/05/2014 Office visit Trena Walker SAMPLE WEAVER 04/26/2014 [facility] Oliverio Matias MD 04/26/2014 Office visit Trena Ulysses SAMPLE WEAVER 02/23/2014 Office visit Trena Walker SAMPLE WEAVER 02/10/2014 Office visit Leno Hernandez DO 01/18/2014 Office visit Trena Arora SAMPLE WEAVER 02/05/2012 Office visit Bryan Tracy MD 01/30/2012 [facility] Bryan Tracy MD 01/27/2012 Office visit Bryan Tracy MD 01/22/2012 Office visit Bryan Tracy MD 01/02/2012 [facility] Oliverio Matias MD 05/09/2011 [facility] Oliverio Matias MD 10/22/2010 [facility] Lashonda Abdalla MD
--- OUTSIDE RECORDS SUMMARY | 2017-08-25 06:55 | XMS REPORT | CCD ---
Author Author EDUAR CARTER Organization Unknown Address [address] [place], [place] [address] Care Team Providers Care Tutoring Manager Name Role Phone ARTEMUS ER, TITO DO Attphys ARTEMUS ER, TITO DO Prisurg Vital Signs Unknown or Not Available. Allergies Allergy Code Allergy Type Reaction Status CEPHALEXIN 2231 Drug allergy SOB QUIT BREATHING Active RASPBERRY 0 Food allergy Active KEFLEX 388438 Drug allergy Active HYDROXYZINE 5553 Drug allergy BECAME VIOLENT Active ASPIRIN 1191 Drug allergy SOB QUIT BREATHING Active blueberry {Clinical monitoring unavailable} 0 Food allergy Active mushrooms {Clinical monitoring unavailable} 0 Food allergy Active BACTRIM 462300 Drug allergy Active Procedures Procedure Code Procedure Type Date LUMBAR SPINE; 2VIEWS OR [address] 2014 CX CHEST [address] 03/11/2015 CT HEAD W/O CONTRAST 751853654 SNOMED CT 03/11/2015 History of Immunizations Immunization Code Date Influenza, seasonal, injectable 141 08/20/2013 Problems Unknown or Not Available. Results Unknown or Not Available. Active Medications Unknown or Not Available. Medications Administered During Visit Unknown or Not Available. Encounters Encounter Diagnosis Diagnosis Code Start Date HEAD INJURY, UNSPEC 11932 03/11/2015 Social History Smoking Status Code Start Date End Date Never smoker 862863799 Patient Decision Aids Unknown or Not Available. Discharge Instructions You were admitted to [facility] on 03/11/2015 with a principal diagnosis of HEAD INJURY, UNSPEC. You were discharged from [facility] on 03/11/2015. Should you have any questions prior to discharge, please contact a member of your healthcare team. If you have left the hospital and have any questions, please contact your primary care physician. Chief Complaint and Reason For Visit Chief Complaint Date of Onset LOWER BACK PAIN AND HEADACHE Function Status Unknown or Not Available. Referral/Transition of Care Unknown or Not Available.
--- OUTSIDE RECORDS SUMMARY | 2017-08-25 06:55 | XMS REPORT ---
Author Author Trena Arora [facility] Address [address] [place], [place] [address] Care Team Providers Care Program Consultant Name Role Phone Trena Arora PCP Unavailable [...] prednisone 10 mg oral tablet 05/10/2015 08/08/2015 [id number](6 tabs) daily for 5 days, then 50mg [...] 0.50 mg/dLCALCIUM 9.0 mg/ dLeGFR >60 mL/min/1.73 [id number] YELLOW APPEARANCE CLEAR SPEC GRAV 1.020 pH [...] BILI 0.40 mg/dLCALCIUM 9.20 mg/dLeGFR >60 mL/min/1.73 [id number]- I AD <0.04 ng/mLHGB A1C 6.20 %Est [...] 2015 10:28AM Snoring Aug 08 2015 10:28AM Payers Insurance Name Company Name Plan Name Plan Number Policy Number Policy Group Number Start Date [facility] [id number] N/A [facility] - Community [facility] RHC Comm [id number] Saturday, [address] [facility] Comm Plan of [id number] N/A History of Encounters Visit Date Visit Type Provider 08/08/2015 Office visit Trena Arora IMPLEMENTATION CONSULTANT 05/10/2015 Office visit Trena Arora IMPLEMENTATION CONSULTANT 05/02/2015 Office visit Trena Arora IMPLEMENTATION CONSULTANT 02/16/2015 Office visit Trena Arora IMPLEMENTATION CONSULTANT 08/24/2014 Office visit Trena Arora IMPLEMENTATION CONSULTANT 08/05/2014 Office visit Trena Arora IMPLEMENTATION CONSULTANT 04/26/2014 [facility] Oliverio Matias MD 04/26/2014 Office visit Trena Arora IMPLEMENTATION CONSULTANT 02/23/2014 Office visit Trena Arora IMPLEMENTATION CONSULTANT 02/10/2014 Office visit Leno Hernandez DO 01/18/2014 Office visit Trena Arora IMPLEMENTATION CONSULTANT 02/05/2012 Office visit Bryan Tracy MD 01/30/2012 [facility] Bryan Tracy MD 01/27/2012 Office visit Bryan Tracy MD 01/22/2012 Office visit Bryan Tracy MD 01/02/2012 [facility] Oliverio Matias MD 05/09/2011 [facility] Oliverio Matias MD 10/22/2010 [facility] Lashonda Abdalla MD
--- OUTSIDE RECORDS SUMMARY | 2017-08-25 06:55 | XMS REPORT ---
Author Author Arturo Benitez [facility] Address [address] [place], [place] [address] Care Team Providers Care Gum Dipper Name Role Phone Arturo Benitez PCP Unavailable [...] take 1 tablet by oral route daily [place] 10-325 mg oral tablet 06/06/2017 take 1 tablet by oral route every [...] prednisone 10 mg oral tablet 05/10/2015 08/08/2015 [id number](6 tabs) daily for 5 days, then 50mg [...] HC BMI BSA BMI Percentile O2 Sat(%) 06/06/2017 10:48:00 AM 146 mmHg 82 mmHg 78 bpm 18 rpm 96.9 F 260 lbs 69 in 38.39 kg/m2 2.40 m2 97 % 04/17/2017 3:08:00 PM 138 mmHg 82 mmHg 92 bpm 18 rpm 98.5 F 250.375 lbs 69 in 36.9735 kg/m 2.3514 m 97 % 01/27/2017 9:59:00 AM 132 mmHg 84 mmHg 79 bpm 18 rpm 96.5 F 266 lbs 69 in 39.28 kg/m2 2.42 m2 96 % 12/11/2016 8:24:00 AM 132 mmHg 90 mmHg 68 bpm 18 rpm 255 lbs 69 in 37.6565 kg/m 2.373 m 96 % 09/13/2016 9:52:00 AM 136 mmHg [...] Reviewed 12/25/2015 12:00 AM Rocephin 1 gram [facility]#[id number] Reviewed 12/25/2015 12:00 AM THER/PROPH/DIAG INJ SC/IM Reviewed 02/13/2016 12:00 AM CHEST X-RAY 2VW FRONTAL&LATL Reviewed 03/14/2016 12:00 AM X-RAY EXAM L-S SPINE 2/3 VWS Reviewed 12/11/2016 12:00 AM Decadron 8mg Injection Reviewed 12/11/2016 12:00 AM Depo-Medrol 80 Mg Injection, RHC Medicaid Reviewed 01/18/2014 12:00 AM COMPLETE CBC W/AUTO [...] 3:10PM Atopic dermatitis Jun 06 2017 10:53AM Payers Insurance Name Company Name Plan Name Plan Number Policy Number Policy Group Number Start Date zzzTest Medicare A Test Medicare A [id number] N/A [facility] - [facility] - Community [facility] RHC Comm [id number] Saturday, 2012 [facility] Plan [facility] Comm Plan of [id number] N/A BCBS Bcbs [facility] [id number] Thursday, 2016 History of Encounters Visit Date Visit Type Provider 06/06/2017 Office visit Arturo Benitez MD 04/17/2017 Office visit Arturo Benitez MD 01/27/2017 Office visit Arturo Benitez MD 12/31/2016 Hospital Oliverio Matias MD 12/11/2016 Office visit Arturo Benitez MD 09/13/2016 Office visit Arturo Benitez MD 08/15/2016 Office visit Arturo Benitez MD 07/07/2016 Hospital Oliverio Matias MD 06/21/2016 Office visit Arturo Benitez MD 05/17/2016 Office visit Arturo Benitez MD 05/02/2016 Hospital Oliverio Matias MD 03/14/2016 Office visit Arturo Benitez MD 02/13/2016 Office visit Arturo Benitez MD 01/08/2016 [facility] Wes Ochoa MD 12/27/2015 Office visit Wes Ochoa MD 12/25/2015 Office visit Trena Arora APRN 08/08/2015 Office visit Trena Arora APRN 05/10/2015 Office visit Trena Arora APRN 05/02/2015 Office visit Trena Arora APRN 02/16/2015 Office visit Trena Arora APRN 08/24/2014 Office visit Trena Arora APRN 08/05/2014 Office visit Trena Arora APRN 04/26/2014 Hospital Oliverio Matias MD 04/26/2014 Office visit Trena Arora APRN 02/23/2014 Office visit Trena Arora APRN 02/10/2014 Office visit Leno Hernandez DO 01/18/2014 Office visit Trena Arora APRN 02/05/2012 Office visit Bryan Tracy MD 01/30/2012 Hospital Bryan Tracy MD 01/27/2012 Office visit Bryan Tracy MD 01/22/2012 Office visit Bryan Tracy MD 01/02/2012 [facility] Oliverio Matias MD 05/09/2011 [facility] Oliverio Matias MD 10/22/2010 [facility] Lashonda Abdalla MD
--- OUTSIDE RECORDS SUMMARY | 2017-08-25 06:57 | XMS REPORT ---
Author Author Arturo Benitez [facility] Address [address] [place], [place] [address] Care Team Providers Care Reception Clerk Name Role Phone Arturo Benitez PCP Unavailable Arturo Benitez PreferredProvider Unavailable Allergies and Adverse Reactions Name Reaction Notes Raspberries Mushroom Aspirin Keflex Vistaril Bactrim DS Plan of Treatment Planned Activity Comments Planned Date Planned Time Plan/Goal recurrent UTI Treadmill 05/10/2015 12:00 AM Medications Active Name Start Date Estimated Completion Date SIG Comments ibuprofen 800 mg oral tablet 05/17/2016 take 1 tablet (800 mg) by oral route 3 times per day with food lisinopril-hydrochlorothiazide 20-12.5 mg oral tablet take 1 tablet by oral route once daily Prilosec OTC 20 mg oral tablet,delayed release (DR/EC) 01/27/2017 take 1 tablet by oral route daily Medrol (Juan) 4 mg oral tablets,dose pack 04/17/2017 04/29/2017 take as directed for 6 days [place] 10-325 mg oral tablet 04/17/2017 take 1 tablet by oral route every [...] once daily at bedtime for 30 days Discontinued Name Start Date [...] prednisone 10 mg oral tablet 05/10/2015 08/08/2015 Htkk21it(6 tabs) daily for 5 days, then 50mg [...] HC BMI BSA BMI Percentile O2 Sat(%) 04/17/2017 3:08:00 PM 138 mmHg 82 mmHg [...] Reviewed 12/25/2015 12:00 AM Rocephin 1 gram [facility]#[id number] Reviewed 12/25/2015 12:00 AM THER/PROPH/DIAG INJ SC/IM [...] Other chronic pain Apr 17 2017 3:10PM Payers Insurance Name Company Name Plan Name Plan Number Policy Number Policy Group Number Start Date zzzTest Medicare A Test Medicare A [id number] N/A [facility] Comm [id number] Saturday, 2012 [facility] Community Plan of [place] [facility] Comm Plan of [id number] N/A BCBS [employer] [place] [id number] Thursday, 2016 History of Encounters Visit Date Visit Type Provider 04/17/2017 Office visit Arturo Benitez MD 01/27/2017 Office visit Arturo Benitez MD 12/31/2016 Hospital Oliverio Matias MD 12/11/2016 Office visit Arturo Benitez MD 09/13/2016 Office visit Arturo Benitez MD 08/15/2016 Office visit Arturo Benitez MD 07/07/2016 Hospital Oliverio Matias MD 06/21/2016 Office visit Arturo Benitez MD 05/17/2016 Office visit Arturo Benitez MD 05/02/2016 [facility] Oliverio Matias MD 03/14/2016 Office visit Arturo Benitez MD 02/13/2016 Office visit Arturo Benitez MD 01/08/2016 [facility] Wes Ochoa MD 12/27/2015 Office visit Wes Ochoa MD 12/25/2015 Office visit Trena Arora COMPUTATIONAL CHEMIST 08/08/2015 Office visit Trena Arora COMPUTATIONAL CHEMIST 05/10/2015 Office visit Trena Arora COMPUTATIONAL CHEMIST 05/02/2015 Office visit Trena Arora COMPUTATIONAL CHEMIST 02/16/2015 Office visit Trena Arora COMPUTATIONAL CHEMIST 08/24/2014 Office visit Trena Arora COMPUTATIONAL CHEMIST 08/05/2014 Office visit Trena Arora COMPUTATIONAL CHEMIST 04/26/2014 [facility] Oliverio Matias MD 04/26/2014 Office visit Trena Arora COMPUTATIONAL CHEMIST 02/23/2014 Office visit Trena Arora COMPUTATIONAL CHEMIST 02/10/2014 Office visit Leno Hernandez DO 01/18/2014 Office visit Trena Arora COMPUTATIONAL CHEMIST 02/05/2012 Office visit Bryan Tracy MD 01/30/2012 Hospital Bryan Tracy MD 01/27/2012 Office visit Bryan Tracy MD 01/22/2012 Office visit Bryan Tracy MD 01/02/2012 Hospital Oliverio Matias MD 05/09/2011 [facility] Oliverio Matias MD 10/22/2010 [facility] Lashonda Abdalla MD
--- OUTSIDE RECORDS SUMMARY | 2017-08-25 06:57 | XMS REPORT ---
Author Author Arturo Benitez [facility] Address [address] [place], [place] [address] Care Team Providers Care Ballet Company Artistic Director Name Role Phone Arturo Benitez PCP Unavailable [...] once daily at bedtime for 30 days [place] 5-325 mg oral tablet 02/13/2016 take 1 tablet by oral route every 6 hours as needed for pain Ambien 10 mg oral tablet 03/14/2016 05/13/2016 [...] prednisone 10 mg oral tablet 05/10/2015 08/08/2015 [id number](6 tabs) daily for 5 days, then 50mg [...] HC BMI BSA BMI Percentile O2 Sat(%) 03/14/2016 2:01:00 PM 132 mmHg 84 mmHg [...] 12/25/2015 12:00 AM Rocephin 1 gram [facility]#[id number] Reviewed 12/25/2015 12:00 AM THER/PROPH/DIAG INJ SC/IM [...] 0.50 mg/dLCALCIUM 9.0 mg/ dLeGFR >60 mL/min/1.73 [id number] YELLOW APPEARANCE CLEAR SPEC GRAV 1.020 pH [...] BILI 0.40 mg/dLCALCIUM 9.20 mg/dLeGFR >60 mL/min/1.73 [id number]- I AD <0.04 ng/mLHGB A1C 6.20 %Est [...] Low Back Pain Mar 14 2016 2:05PM Payers Insurance Name Company Name Plan Name Plan Number Policy Number Policy Group Number Start Date zzzTest Medicare A Test Medicare A [id number] N/A [facility] - [facility] - Community Plan [facility] RHC Comm [id number] Saturday, 2012 [facility] Comm Plan of [id number] N/A BCBS Bcbs [facility] [id number] N/A History of Encounters Visit Date Visit Type Provider 03/14/2016 Office visit Arturo Benitez MD 02/13/2016 Office visit Arturo Benitez MD 01/08/2016 Hospital Wes Ochoa MD 12/27/2015 Office visit Wes Ochoa MD 12/25/2015 Office visit Trena Arora MAGNETIC OBSERVER 08/08/2015 Office visit Trena Arora MAGNETIC OBSERVER 05/10/2015 Office visit Trena Arora MAGNETIC OBSERVER 05/02/2015 Office visit Trena Arora MAGNETIC OBSERVER 02/16/2015 Office visit Trena Arora MAGNETIC OBSERVER 08/24/2014 Office visit Trena Arora MAGNETIC OBSERVER 08/05/2014 Office visit Trena Arora MAGNETIC OBSERVER 04/26/2014 [facility] Oliverio Matias MD 04/26/2014 Office visit Trena Arora MAGNETIC OBSERVER 02/23/2014 Office visit Trena Arora MAGNETIC OBSERVER 02/10/2014 Office visit Leno Hernandez DO 01/18/2014 Office visit Trena Arora MAGNETIC OBSERVER 02/05/2012 Office visit Bryan Tracy MD 01/30/2012 [facility] Bryan Tracy MD 01/27/2012 Office visit Bryan Tracy MD 01/22/2012 Office visit Bryan Tracy MD 01/02/2012 [facility] Oliverio Matias MD 05/09/2011 [facility] Oliverio Matias MD 10/22/2010 [facility] Lashonda Abdalla MD
--- OUTSIDE RECORDS SUMMARY | 2017-08-25 06:59 | XMS REPORT ---
Author Author Arturo Benitez [facility] Address [address] [place], [place] [address] Care Team Providers Care Bowl Sander Name Role Phone Arturo Benitez PCP Unavailable [...] take 1 tablet by oral route daily Ambien 10 mg oral tablet 01/27/2017 03/28/2017 take 1 tablet (10 mg) by oral route once daily at bedtime for 30 days [place] 10-325 mg oral tablet 01/27/2017 take 1 tablet by oral route every [...] prednisone 10 mg oral tablet 05/10/2015 08/08/2015 Atfh52el(6 tabs) daily for 5 days, then 50mg [...] HC BMI BSA BMI Percentile O2 Sat(%) 01/27/2017 9:59:00 AM 132 mmHg 84 mmHg [...] Reviewed 12/25/2015 12:00 AM Rocephin 1 gram [facility]#[id number] Reviewed 12/25/2015 12:00 AM THER/PROPH/DIAG INJ SC/IM [...] Low Back Pain Jan 27 2017 10:06AM Payers Insurance Name Company Name Plan Name Plan Number Policy Number Policy Group Number [id number] Thursday, 2016 zzzTest Medicare A Test Medicare A [id number] N/A [facility] [id number] Saturday, 2012 [facility] Comm Plan of [id number] N/A History of Encounters Visit Date Visit Type Provider 01/27/2017 Office visit Arturo Benitez MD 12/11/2016 Office visit Arturo Benitez MD 09/13/2016 Office visit Arturo Benitez MD 08/15/2016 Office visit Arturo Benitez MD 07/07/2016 Hospital Oliverio Matias MD 06/21/2016 Office visit Arturo Benitez MD 05/17/2016 Office visit Arturo Benitez MD 05/02/2016 [facility] Oliverio Matias MD 03/14/2016 Office visit Arturo Benitez MD 02/13/2016 Office visit Arturo Benitez MD 01/08/2016 [facility] Wes Ohcoa MD 12/27/2015 Office visit Wes Ochoa MD 12/25/2015 Office visit Trena Arora UNIT RECEPTIONIST 08/08/2015 Office visit Trena Walker UNIT RECEPTIONIST 05/10/2015 Office visit Trena Walker UNIT RECEPTIONIST 05/02/2015 Office visit Trena Walker UNIT RECEPTIONIST 02/16/2015 Office visit Trena Walker UNIT RECEPTIONIST 08/24/2014 Office visit Trena Arora UNIT RECEPTIONIST 08/05/2014 Office visit Trena Arora UNIT RECEPTIONIST 04/26/2014 [facility] Oliverio Matias MD 04/26/2014 Office visit Trena Arora UNIT RECEPTIONIST 02/23/2014 Office visit Trena Arora UNIT RECEPTIONIST 02/10/2014 Office visit Leno Hernandez DO 01/18/2014 Office visit Trena Arora UNIT RECEPTIONIST 02/05/2012 Office visit Bryan Tracy MD 01/30/2012 [facility] Bryan Tracy MD 01/27/2012 Office visit Bryan Tracy MD 01/22/2012 Office visit Bryan Tracy MD 01/02/2012 Hospital Oliverio Matias MD 05/09/2011 [facility] Oliverio Matias MD 10/22/2010 [facility] Lashonda Abdalla MD
--- OUTSIDE RECORDS SUMMARY | 2017-08-25 06:59 | XMS REPORT | CCD ---
Author Author MIROSLAVA TUCKER Organization Unknown Address [address] [place] [address] Care Team Providers Care Tank House Operator Helper Name Role Phone PLANO ER, TITO DO Attphys PLANO ER, TITO DO Prisurg Allergies Allergy Code Allergy Type Reaction Status VISTARIL 725914 Drug allergy Active KEFLEX 888140 Drug allergy Active ASPIRIN 1191 Drug allergy SOB QUIT BREATHING Active BACTRIM 000108 Drug allergy Active Active Medications Unknown or [...] Code Start Date End Date Never smoker [id number] Vital Signs Unknown or Not Available. Function Status Unknown or Not Available. Goals Unknown or Not Available. ASSESSMENTS Unknown or Not Available. Health Concerns Section Unknown or Not Available.
--- OUTSIDE RECORDS SUMMARY | 2017-08-25 06:59 | XMS REPORT ---
Author Author [facility] Organization [facility] Address [address] [place], [place] [id number] Care Team Providers Care Hydrotel Operator Name Role Phone PCP Unavailable Allergies and Adverse Reactions Name Reaction Notes Raspberries Mushroom Aspirin Keflex Vistaril Bactrim DS Plan of Treatment Planned Activity Comments Planned Date Planned Time Plan/Goal LIPID PANEL 05/10/2015 12:00 AM Medications Active Name Start Date Estimated Completion Date SIG Comments acyclovir oral tablet 400 mg 05/10/2015 05/17/2015 take 1 tablet by oral route 5 times a day for 7 days prednisone oral tablet 10 mg 05/10/2015 [id number](6 tabs) daily for 5 days, then 50mg [...] 0.50 mg/dLCALCIUM 9.0 mg/ dLeGFR >60 mL/min/1.73 [id number] YELLOW APPEARANCE CLEAR SPEC GRAV 1.020 pH [...] BILI 0.40 mg/dLCALCIUM 9.20 mg/dLeGFR >60 mL/min/1.73 [id number] AD <0.04 ng/mLHGB A1C 6.20 % History Of Immunizations Not available. History [...] Policy Number Policy Group Number Start Date [facility] [id number] N/A [facility] - [facility] - [facility] Comm [id number] Saturday, 2012 [facility] Comm Plan of [id number] N/A History of Encounters Visit Date Visit Type Provider 05/10/2015 Office visit Trena Arora APRN 05/02/2015 Office visit Trena Arora APRN 02/16/2015 Office visit Trena Arora APRN 08/24/2014 Office visit Trena Arora APRN 08/05/2014 Office visit Trena Arora APRN 04/26/2014 Office visit Trena Ulysses COVER MAT MACHINE OPERATOR 04/26/2014 [facility] Oliverio Matias MD 02/23/2014 Office visit Trena Ulysses COVER MAT MACHINE OPERATOR 02/10/2014 Office visit Leno Hernandez DO 01/18/2014 Office visit Trena Ulysses COVER MAT MACHINE OPERATOR 02/05/2012 Office visit Bryan Tracy MD 01/30/2012 [facility] Bryan Tracy MD 01/27/2012 Office visit Bryan Tracy MD 01/22/2012 Office visit Bryan Tracy MD 01/02/2012 [facility] Oliverio Matias MD 05/09/2011 [facility] Oliverio Matias MD 10/22/2010 [facility] Lashonda Abdalla MD
--- OUTSIDE RECORDS SUMMARY | 2017-08-25 07:00 | XMS REPORT | CCD ---
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 Allergies Allergy Code Allergy Type Reaction Status CEPHALEXIN 2231 Drug allergy SOB QUIT BREATHING Active RASPBERRY 0 Food allergy Active VISTARIL 771543 Drug allergy Active KEFLEX 770327 Drug allergy Active HYDROXYZINE 5553 Drug allergy BECAME VIOLENT Active ASPIRIN 1191 Drug allergy SOB QUIT BREATHING Active blueberry {Clinical monitoring unavailable} 0 Food allergy Active mushrooms {Clinical monitoring unavailable} 0 Food allergy Active BACTRIM 613903 Drug allergy Active Procedures Procedure Code Procedure Type Date CX CHEST [address] 05/02/2016 TROPONIN-I ADV 559782608 SNOMED CT 05/02/2016 CBC W/ AUTO DIFF (RFLX MAN DIFF IF IND) 1692899 SNOMED CT 05/02/2016 COMPREHENSIVE METABOLIC PANEL 093437711 SNOMED CT [address] 05/02/2016 ^CBC W/AUTO DIFF 2969485 SNOMED CT 05/02/2016 History of Immunizations Immunization Code Date Influenza, seasonal, injectable 141 08/20/2013 Problems Unknown or Not Available. Results COMPREHENSIVE METABOLIC PANEL - Collect Date/Time: 05/02/2016 13:30 Test Name Code Test Result Test Units Test Ref Range GLUCOSE 2345-7 89 MG/DL L=70 H=100 SODIUM 2951-2 139 MEQ/L L=135 H=148 POTASSIUM 2823-3 3.9 MEQ/L L=3.5 H=5.3 CHLORIDE 2075-0 107 MEQ/L L=96 H=110 CO2 2028-9 24 MEQ/L L=22 H=29 BUN 3094-0 12 MG/DL L=8 H=22 CREATININE 2160-0 0.9 MG/DL L=0.6 H=1.6 SGOT/AST 1920-8 15 IU/L L=10 H=40 SGPT/ALT 1742-6 20 IU/L L=8 H=54 ALK PHOS 6768-6 73 IU/L L=35 H=115 TOTAL PROTEIN 2885-2 7.0 G/DL L=5.5 H=8.5 ALBUMIN 1751-7 4.1 G/DL L=3.1 H=5.4 TOTAL BILI 1975-2 0.3 MG/DL L=0.0 H=1.5 CALCIUM 86727-9 8.9 MG/DL L=8.2 H=10.6 AGE 40 yrs GFR NonAA 93 GFR AA 113 eGFR >60 N/A eGFR AA* >60 N/A CBC W/ AUTO DIFF (RFLX MAN DIFF IF IND) - Collect Date/Time: 05/02/2016 13:30 Test Name Code Test Result Test Units Test Ref Range WBC 70694-4 7.8 TH/CMM L=4.5 H=10.8 RBC 789-8 5.33 ML/CMM L=4.70 H=6.10 HGB 718-7 14.8 G/DL L=14.0 H=18.0 HCT 4544-3 45.6 % L=42.0 H=52.0 MCV 86 FL L=81 H=99 MCH 27.8 PG L=27.0 H=33.0 MCHC 32.5 G/DL L=31.0 H=36.0 RDW SD 41 FL L=36 H=50 RDW CV 13.2 % L=0.0 H=14.8 MPV 9.4 FL L=9.3 H=12.5 PLT 777-3 232 TH/CMM L=130 H=440 NRBC# 0.00 TH/CMM L=0.00 H=0.00 NRBC% 0.0 /100WBC L=0.0 H=2.0 %NEUT 51.1 % %LYMP 35.1 % %MONO 9.4 % %EOS 3.6 % %BASO 0.5 % #NEUT 3.98 TH/CMM L=2.10 H=8.20 #LYMP 2.73 TH/CMM L=0.90 H=5.20 #MONO 0.73 TH/CMM L=0.16 H=1.00 #EOS 0.28 TH/CMM L=0.00 H=0.80 #BASO 0.04 TH/CMM L=0.00 H=0.20 MANUAL DIFF NOT IND N/A BNP - Collect Date/Time: 05/02/2016 13:30 Test Name Code Test Result Test Units Test Ref Range BNP 13100-8 <10 PG/ML L=0 H=100 TROPONIN-I ADV - Collect Date/Time: 05/02/2016 13:30 Test Name Code Test Result Test Units [place] [address]-7 <0.04 ng/mL L=0.04 H= 0.40 Active Medications Unknown or Not Available. Medications Administered During Visit Unknown or Not Available. Encounters Encounter Diagnosis Diagnosis Code Start Date Chest pain, unspecified R079 05/02/2016 Social History Smoking Status Code Start Date End Date Never smoker [id number] Patient Decision Aids Unknown or Not Available. Discharge Instructions You were admitted to [facility] on 05/02/2016 13:16 with a principal diagnosis of Chest pain, unspecified You had the following tests done: BNP CBC W/ AUTO DIFF (RFLX MAN DIFF IF IND) COMPREHENSIVE METABOLIC PANEL TROPONIN-I ADV You were discharged from [facility] on 05/02/2016 15:08 Should you have any questions prior to discharge, please contact a member of your healthcare team. If you have left the hospital and have any questions, please contact your primary care physician. Chief Complaint and Reason For Visit Chief Complaint Date of Onset CHEST PAIN CHEST TIGHTNESS ARM PAIN HEADACHE Function Status Unknown or Not Available. Plan of Care Unknown or Not Available. Referral/Transition of Care Unknown or Not Available.
--- OUTSIDE RECORDS SUMMARY | 2017-08-25 07:00 | XMS REPORT ---
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 Name Role Phone Trena Arora PCP Unavailable Allergies and Adverse Reactions Name Reaction Notes Raspberries Mushroom Aspirin Keflex Vistaril Bactrim DS Plan of Treatment Planned Activity Comments Planned Date Planned Time Plan/Goal GLYCOSYLATED HEMOGLOBIN TEST 12/25/2015 12:00 AM recurrent [...] prednisone 10 mg oral tablet 05/10/2015 08/08/2015 [id number](6 tabs) daily for 5 days, then 50mg [...] AM LIPID PANEL Returned 12/25/2015 12:00 AM Rocephin 1 gram [facility]#[id number] Reviewed 12/25/2015 12:00 AM THER/PROPH/DIAG INJ SC/IM [...] 0.50 mg/dLCALCIUM 9.0 mg/ dLeGFR >60 mL/min/1.73 [id number] YELLOW APPEARANCE CLEAR SPEC GRAV 1.020 pH [...] BILI 0.40 mg/dLCALCIUM 9.20 mg/dLeGFR >60 mL/min/1.73 [id number]- I AD <0.04 ng/mLEst Avg Glucose 131.2 [...] Ur Ql Strip large 12/26/2015 5:23 AM GLUCOSE 116.0 mg/dLSODIUM 138.0 mmol/LPOTASSIUM 4.30 mmol/ LCHLORIDE 107.0 mmol/LCO2 24.0 mmol/LBUN 15.0 mg/dLCREATININE 0.90 mg/dLSGOT/ AST 18.0 IU/LSGPT/ALT 23.0 IU/LALK PHOS 74.0 IU/LTOTAL PROTEIN 7.10 g/dLALBUMIN 4.20 g/dLTOTAL BILI 0.40 mg/dLCALCIUM 9.20 mg/dLeGFR [...] Number Policy Group Number Start Date [employer] [id number] N/A [facility] [id number] N/A [facility] - [facility] Comm [id number] Saturday, 2012 [facility] Comm Plan of [id number] N/A History of Encounters Visit Date Visit Type Provider 12/25/2015 Office visit Trena Arora APRN 08/08/2015 Office visit Trena Arora EXHIBIT CLEANER 05/10/2015 Office visit Trena Arora EXHIBIT CLEANER 05/02/2015 Office visit Trena Arora EXHIBIT CLEANER 02/16/2015 Office visit Trena Arora EXHIBIT CLEANER 08/24/2014 Office visit Trena Arora EXHIBIT CLEANER 08/05/2014 Office visit Trena Arora EXHIBIT CLEANER 04/26/2014 [facility] Oliverio Matias MD 04/26/2014 Office visit Trena Arora EXHIBIT CLEANER 02/23/2014 Office visit Trena Arora EXHIBIT CLEANER 02/10/2014 Office visit Leno Hernandez DO 01/18/2014 Office visit Trena Arora EXHIBIT CLEANER 02/05/2012 Office visit Bryan Tracy MD 01/30/2012 [facility] Bryan Tracy MD 01/27/2012 Office visit Bryan Tracy MD 01/22/2012 Office visit Bryan Tracy MD 01/02/2012 [facility] Oliverio Matias MD 05/09/2011 [facility] Oliverio Matias MD 10/22/2010 [facility] Lashonda Abdalla MD
--- OUTSIDE RECORDS SUMMARY | 2017-08-25 07:01 | XMS REPORT ---
Author Author [facility] Organization [facility] Address [address] [place], [place] [address] Care Team Providers Care Forensic Technician Name Role Phone PCP Unavailable Allergies and [...] days prednisone oral tablet 10 mg 05/10/2015 [id number](6 tabs) daily for 5 days, then 50mg [...] 0.50 mg/dLCALCIUM 9.0 mg/ dLeGFR >60 mL/min/1.73 [id number] YELLOW APPEARANCE CLEAR SPEC GRAV 1.020 pH [...] BILI 0.40 mg/dLCALCIUM 9.20 mg/dLeGFR >60 mL/min/1.73 [id number] AD <0.04 ng/mL History Of Immunizations [...] Policy Number Policy Group Number Start Date [facility] - Community [facility] Comm [id number] Saturday, 2012 [facility] Comm Plan of [id number] N/A [facility] [id number] N/A History of Encounters Visit Date Visit Type Provider 05/10/2015 Office visit Trena Arora APRN 05/02/2015 Office visit Trena Arora APRN 02/16/2015 Office visit Trena Arora APRN 08/24/2014 Office visit Trena Arora APRN 08/05/2014 Office visit Trena Arora APRN 04/26/2014 Office visit Trena Arora APRN 04/26/2014 [facility] Oliverio Matias MD 02/23/2014 Office visit Trena Arora CUSTOMER SERVICE AGENT 02/10/2014 Office visit Leno Hernandez DO 01/18/2014 Office visit Trena Arora CUSTOMER SERVICE AGENT 02/05/2012 Office visit Bryan Tracy MD 01/30/2012 [facility] Bryan Tracy MD 01/27/2012 Office visit Bryan Tracy MD 01/22/2012 Office visit Bryan Tracy MD 01/02/2012 [facility] Oliverio Matias MD 05/09/2011 [facility] Oliverio Matias MD 10/22/2010 [facility] Lashonda Abdalla MD
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
--- OUTSIDE RECORDS SUMMARY | 2017-08-25 07:02 | XMS REPORT ---
Author Author Arturo Bneitez [facility] Address [address] [place], [place] [id number] Care Team Providers Care Director Life Insurance Name Role Phone Arturo Benitez PCP Unavailable [...] 1 tablet by oral route once daily prednisone 20 mg oral tablet 05/17/2016 05/24/2016 take 2 tablets (40 mg) by oral route once daily for 7 days ibuprofen 800 mg oral tablet 05/17/2016 take 1 tablet (800 mg) by oral route 3 times per day with food [place] 10-325 mg oral tablet 05/17/2016 take 1 tablet by oral route every [...] prednisone 10 mg oral tablet 05/10/2015 08/08/2015 [id number](6 tabs) daily for 5 days, then 50mg [...] HC BMI BSA BMI Percentile O2 Sat(%) 05/17/2016 8:51:00 AM 148 mmHg 80 mmHg [...] Returned 12/25/2015 12:00 AM Rocephin 1 gram [facility]#[id number] Reviewed 12/25/2015 12:00 AM THER/PROPH/DIAG INJ SC/IM [...] 0.50 mg/dLCALCIUM 9.0 mg/ dLeGFR >60 mL/min/1.73 [id number] YELLOW APPEARANCE CLEAR SPEC GRAV 1.020 pH [...] BILI 0.40 mg/dLCALCIUM 9.20 mg/dLeGFR >60 mL/min/1.73 [id number] I AD <0.04 ng/mLHGB A1C 6.20 %Est [...] Low Back Pain May 17 2016 8:56AM Payers Insurance Name Company Name Plan Name Plan Number Policy Number Policy Group Number Start Date zzzTest Medicare A Test Medicare A [id number] N/A [facility] RHC Comm [id number] Saturday, 2012 [facility] Comm Plan of [id number] N/A [employer] [facility] [id number] N/A History of Encounters Visit Date Visit Type Provider 05/17/2016 Office visit Arturo Benitez MD 03/14/2016 Office visit Arturo Benitez MD 02/13/2016 Office visit Arturo Benitez MD 01/08/2016 Hospital Wes Ochoa MD 12/27/2015 Office visit Wes Ochoa MD 12/25/2015 Office visit Trena Arora CLINICAL RESEARCH ADMINISTRATOR 08/08/2015 Office visit Trena Arora CLINICAL RESEARCH ADMINISTRATOR 05/10/2015 Office visit Trena Arora CLINICAL RESEARCH ADMINISTRATOR 05/02/2015 Office visit Trena Arora CLINICAL RESEARCH ADMINISTRATOR 02/16/2015 Office visit Trena Arora CLINICAL RESEARCH ADMINISTRATOR 08/24/2014 Office visit Trena Arora CLINICAL RESEARCH ADMINISTRATOR 08/05/2014 Office visit Trena Arora CLINICAL RESEARCH ADMINISTRATOR 04/26/2014 [facility] Oliverio Matias MD 04/26/2014 Office visit Trena Arora CLINICAL RESEARCH ADMINISTRATOR 02/23/2014 Office visit Trena Arora CLINICAL RESEARCH ADMINISTRATOR 02/10/2014 Office visit Leno Hernandez DO 01/18/2014 Office visit Trena Arora CLINICAL RESEARCH ADMINISTRATOR 02/05/2012 Office visit Bryan Tracy MD 01/30/2012 [facility] Bryan Tracy MD 01/27/2012 Office visit Bryan Tracy MD 01/22/2012 Office visit Bryan Tracy MD 01/02/2012 [facility] Oliverio Matias MD 05/09/2011 [facility] Oliverio Matias MD 10/22/2010 [facility] Lashonda Abdalla MD
[2017-08-25 07:08] LABS: BILIRUBIN,URINE NEGATIVE (NEGATIVE); KETONES,URINE NEGATIVE (NEGATIVE); LEUKOCYTE ESTERASE ,URINE 2+ (NEGATIVE); NITRITE,URINE NEGATIVE (NEGATIVE); PH,URINE 6 (5-9); PROTEIN,URINE NEGATIVE (NEGATIVE); UROBILINOGEN,URINE NORMAL (NORMAL)
--- NOTE | 2017-08-25 07:27 | ED Abdominal Pain ---
General Chief Complaint: Abdominal/GI Problems Stated Complaint: KIDNEY ISSUES RED URINE Nursing Triage Note: PT REPORTS BILAT FLANK PAIN X 2-3 WEEKS. PT HAS BEEN SEEN AND TX AT [facility] FOR SAME S/S. Sepsis Screen: No Definite Risk Source of Information: Patient Exam Limitations: No Limitations History of Present Illness Time Seen By Provider: 06:42 Initial Comments This 41-year-old gentleman presents to the emergency room with complaints of bilateral abdominal discomfort 3 weeks and dark urine. He reports he presented to the [place] emergency room where a UA was performed. He states the results were normal and he was discharged. He reports his urine is sometimes reddish in color. He has bilateral mid and lower back pain which she states feels similar to prior urinary tract infection. He denies any fever. 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 Patient has seen Dr. Ochoa previously for similar symptoms and UTI and a cystoscopy was attempted. However, he states the scope could not be completely past due to "scarring". Patient has a history of diabetes, heart disease and hypertension which are currently not being treated. He does not have a primary care provider. He used to see Dr. Benitez who he states fired him. He has not attempted to find a another provider since then. Secondarily he asked me to evaluate a healing burn on the left forearm. Allergies and Home Medications Allergies Coded Allergies: Aspirin (Unverified Allergy, Mild, 07/10/09) Cephalexin (Unverified Allergy, Mild, 07/10/09) Hydroxyzine (Unverified Allergy, Mild, 07/10/09) Home Medications Cyclobenzaprine Hcl 10 Mg Tablet, 1 TAB PO TID, (Reported) Review of Systems Constitutional: no symptoms reported EENTM: No Symptoms Reported Respiratory: No Symptoms Reported Cardiovascular: No Symptoms Reported Gastrointestinal: See HPI Genitourinary: See HPI Musculoskeletal: see HPI Skin: see HPI Psychiatric/Neurological: No Symptoms Reported Endocrine: No Symptoms Reported Hematologic/Lymphatic: No Symptoms Reported Past Wjjuvwc-Xhxtxm-Taihxs Hx Patient Social History Alcohol Use: Denies Use Recreational Drug Use: No Smoking Status: Current Everyday Smoker Type Used: Cigarettes 2nd Hand Smoke Exposure: Yes Recent Foreign Travel: No Contact w/Someone Who Travel: No Recent Infectious Disease Expo: No Recent Hopitalizations: No Physical Abuse: No Sexual Abuse: No Seasonal Allergies Seasonal Allergies: No Surgeries History of Surgeries: Yes Surgeries: Adenoidectomy, Appendectomy, Bladder Surgery (attempted cystoscopy) , Gallbladder, Orthopedic (bilateral knee arthroscopically, right carpal tunnel , right trigger finger), Tonsillectomy Respiratory History of Respiratory Disorde: No Cardiovascular History of Cardiac Disorders: Yes Cardiac Disorders: Coronary Artery Disease, Heart Attack, Hypertension Neurological History of Neurological Disord: Yes Neurological Disorders: Neuropathy Genitourinary History of Genitourinary Disor: No Gastrointestinal History of Gastrointestinal Di: No Musculoskeletal History of Musculoskeletal Dis: No Endocrine History of Endocrine Disorders: Yes Endocrine Disorders: Diabetes, Non-Insulin dep HEENT History of HEENT Disorders: No Cancer History of Cancer: No Psychosocial History of Psychiatric Problem: No Suicide Risk Score: 0 Integumentary History of Skin or Integumenta: No Family Medical History Significant Family History: Heart Disease, Diabetes, Hypertension, Renal Disease Physical Exam Vital Signs VS - Last 72 Hours, by Label 08/25/17 07:00 Temp 96.3 Pulse 66 Resp 20 B/P (MAP) 161/110 Pulse Ox 98 O2 Delivery Room Air Capillary Refill : Less Than 3 Seconds General Appearance: WD/WN, no apparent distress, obese HEENT: PERRL/EOMI, normal ENT inspection, other (oropharynx dry) Neck: normal inspection Respiratory: lungs clear, normal breath sounds, no respiratory distress, no accessory muscle use Cardiovascular: regular rate, rhythm, no edema Gastrointestinal: normal bowel sounds, soft, tenderness (mild diffuse discomfort with palpation) Extremities: normal inspection, no pedal edema Back: other (fairly diffuse tenderness to palpation of the musculature in the mid and lower back) Neurologic/Psychiatric: constitutional law professor II-XII nml as tested, no motor/sensory deficits, alert, normal mood/affect, oriented x 3 Skin: normal color, warm/dry, other (healing burn with a sloughing scab on the left forearm) Progress/Results/Core Measures Results/Orders Lab Results Laboratory Tests Test 08/25/17 06:59 08/25/17 07:17 Range/Units Urine Color YELLOW Urine Clarity CLEAR Urine pH 6 5-9 Urine Specific [place] 1.025 H 1.016-1.022 Urine Protein NEGATIVE NEGATIVE Urine Glucose (UA) NEGATIVE NEGATIVE Urine Ketones NEGATIVE NEGATIVE Urine Nitrite NEGATIVE NEGATIVE Urine Bilirubin NEGATIVE NEGATIVE Urine Urobilinogen NORMAL NORMAL MG/DL Urine Leukocyte Esterase 2+ H NEGATIVE Urine RBC (Auto) NEGATIVE NEGATIVE Urine RBC NONE /HPF Urine WBC 10-25 H /HPF Urine Squamous Epithelial Cells 2-5 /HPF Urine Crystals NONE /LPF Urine Bacteria TRACE /HPF Urine Casts NONE /LPF Urine Mucus NEGATIVE /LPF Urine Culture Indicated YES White Blood Count 6.3 4.3-11.0 10^3/uL Red Blood Count 5.10 4.35-5.85 10^6/uL Hemoglobin 14.4 13.3-17.7 G/DL Hematocrit 43 40-54 % Mean Corpuscular Volume 85 80-99 FL Mean Corpuscular Hemoglobin 28 25-34 PG Mean Corpuscular Hemoglobin Concent 33 32-36 G/DL Red Cell Distribution Width 13.3 10.0-14.5 % Platelet Count 247 130-400 10^3/uL Mean Platelet Volume 9.9 7.4-10.4 FL Neutrophils (%) (Auto) 47 42-75 % Lymphocytes (%) (Auto) 37 12-44 % Monocytes (%) (Auto) 11 0-12 % Eosinophils (%) (Auto) 4 0-10 % Basophils (%) (Auto) 1 0-10 % Neutrophils # (Auto) 2.9 1.8-7.8 X 10^3 Lymphocytes # (Auto) 2.4 1.0-4.0 X 10^3 Monocytes # (Auto) 0.7 0.0-1.0 X 10^3 Eosinophils # (Auto) 0.3 0.0-0.3 10^3/uL Basophils # (Auto) 0.0 0.0-0.1 10^3/uL Sodium Level 137 135-145 MMOL/L Potassium Level 4.0 3.6-5.0 MMOL/L Chloride Level 108 H 98-107 MMOL/L Carbon Dioxide Level 23 21-32 MMOL/L Anion Gap 6 5-14 MMOL/L Blood Urea Nitrogen 9 7-18 MG/DL Creatinine 0.83 0.60-1.30 MG/DL Estimat Glomerular Filtration Rate > 60 BUN/Creatinine Ratio 11 Glucose Level 111 H 70-105 MG/DL Calcium Level 8.6 8.5-10.1 MG/DL Total Bilirubin 0.4 0.1-1.0 MG/DL Aspartate Amino Transf (AST/SGOT) 16 5-34 U/L Alanine Aminotransferase (ALT/SGPT) 20 0-55 U/L Alkaline Phosphatase 67 40-136 U/L Total Creatine Kinase 92 30-200 U/L Total Protein 7.1 6.4-8.2 GM/DL Albumin 3.8 3.2-4.5 GM/DL My Orders Orders - KETTY HART MD Ua Culture If Indicated (08/25/17 06:42) Cbc With Automated Diff (08/25/17 07:16) Comprehensive Metabolic Panel (08/25/17 07:16) Creatine Kinase (08/25/17 07:16) Saline Lock/Iv-Start (08/25/17 07:16) Urine Culture (08/25/17 06:59) Vital Signs/I&O Vital Sign - Last 12Hours 08/25/17 07:00 Temp 96.3 Pulse 66 Resp 20 B/P (MAP) 161/110 Pulse Ox 98 O2 Delivery Room Air Blood Pressure Mean: 127 Progress Note : Progress Note Patient was evaluated with labs and urinalysis. Workup was relatively unremarkable with the exception of evidence of urinary tract infection. Cipro was prescribed as patient has a cephalosporin allergy. I advised him to establish with a primary care provider as soon as possible for monitoring of his chronic conditions. See discharge instructions Departure Impression Impression: Primary Impression: Urinary tract infection Qualified Codes: N39.0 - Urinary tract infection, site not specified Additional Impressions: Abdominal discomfort Backache Qualified Codes: M54.9 - Dorsalgia, unspecified Hypertension Qualified Codes: I10 - Essential (primary) hypertension Disposition: 01 HOME, SELF-CARE Condition: Improved Departure-Patient Inst. Decision time for Depature: 08:20 Referrals: [facility] (PCP) Primary Care Physician Patient Instructions: High Blood Pressure (DC), Urinary Tract Infection, Adult (DC) Add. Discharge Instructions: Establish with a primary care provider soon as possible for monitoring of your high blood pressure, diabetes, and urinary symptoms. At a minimum, you need to have an annual visit with blood work screening. Complete your antibiotic as prescribed. Drink plenty of clear liquids. For backache take Tylenol (acetaminophen) up to 1000 mg every 6 hours as needed for pain. Add ibuprofen up to 600 mg every 6 hours as needed for pain not controlled by Tylenol. Return to the emergency room if symptoms worsen. Also see primary care provider if treatment of the urinary tract infection does not improve your abdominal discomfort. All discharge instructions reviewed with patient and/or family. Voiced understanding. Scripts Ciprofloxacin HCl (Cipro) 500 Mg Tablet 500 MG PO BID, #14 TAB Prov: KETTY HART MD 08/25/17 KETTY HART MD Aug 25, 2017 07:27
[2017-08-25 07:32] LABS: BASOPHILS % (AUTO) 1 % (0-10); EOSINOPHILS # (AUTO) 0.3 10^3/uL (0.0-0.3); EOSINOPHILS % (AUTO) 4 % (0-10); LYMPHOCYTES # (AUTO) 2.4 X 10^3 (1.0-4.0); LYMPHOCYTES % (AUTO) 37 % (12-44); MEAN CORPUSCULAR HEMOGLOBIN 28 PG (25-34); MEAN CORPUSCULAR HGB CONC 33 G/DL (32-36); MEAN CORPUSCULAR VOLUME 85 FL (80-99); MEAN PLATELET VOLUME 9.9 FL (7.4-10.4); MONOCYTES # (AUTO) 0.7 X 10^3 (0.0-1.0); MONOCYTES % (AUTO) 11 % (0-12); NEUTROPHILS # (AUTO) 2.9 X 10^3 (1.8-7.8); NEUTROPHILS % (AUTO) 47 % (42-75); PLATELET COUNT 247 10^3/uL (130-400); RED CELL DISTRIBUTION WIDTH 13.3 % (10.0-14.5); WHITE BLOOD COUNT 6.3 10^3/uL (4.3-11.0)
[2017-08-25 07:48] LABS: ALANINE AMINOTRANSFERASE 20 U/L (0-55); ALBUMIN 3.8 GM/DL (3.2-4.5); ANION GAP 6 MMOL/L (5-14); ASPARTATE AMINO TRANSFERASE 16 U/L (5-34); BILIRUBIN,TOTAL 0.4 MG/DL (0.1-1.0); BLOOD UREA NITROGEN 9 MG/DL (7-18); BUN/CREATININE RATIO 11; CALCIUM 8.6 MG/DL (8.5-10.1); CARBON DIOXIDE 23 MMOL/L (21-32); CHLORIDE 108 MMOL/L (98-107); CREATINE KINASE 92 U/L (30-200); CREATININE SERUM 0.83 MG/DL (0.60-1.30); GFR ESTIMATED > 60; GLUCOSE 111 MG/DL (70-105); SODIUM 137 MMOL/L (135-145); TOTAL PROTEIN 7.1 GM/DL (6.4-8.2)
[2017-08-25] MEDS ORDERED: CIPR-225 PO (08:22)
[2017-08-25 08:33] VITALS: BP 157/103
== END 2017-08-25 08:35 | disposition home or self-care (01) ==
LOC: EDUNIT# 06:34 → ER 06:38
DX: N39.0 Urinary tract infection, site not specified (principal); M54.9 Dorsalgia, unspecified; I10 Essential (primary) hypertension; E11.40 Type 2 diabetes mellitus with diabetic neuropathy, unspecified; I25.10 Atherosclerotic heart disease of native coronary artery without angina pectoris; I25.2 Old myocardial infarction; F17.210 Nicotine dependence, cigarettes, uncomplicated; Z82.49 Family history of ischemic heart disease and other diseases of the circulatory system; Z90.49 Acquired absence of other specified parts of digestive tract; Z90.89 Acquired absence of other organs
CPT/HCPCS: 36415; 80053; 81000; 82550; 85025; 87088

== ENCOUNTER 2021-04-27 08:24 | Observation (INO) | payer SELFPAY ==
[~2021-04-27] VITALS: Ht 175.3 cm; Wt 115.0 kg
[~2021-04-27 08:24] MED LIST changes: +CIPR-225 PO
--- NOTE | 2021-04-27 08:42 | ED Chest Pain ---
General Stated Complaint: CHEST PAIN/ RIGHT LEG PAIN Source: patient Exam Limitations: no limitations History of Present Illness Date Seen by Provider: Apr 27, 2021 Time Seen by Provider: 08:21 Initial Comments The patient presents to the ER by private conveyance with his and chief complaint that he was awoken about 5:00, 3-1/2 hours prior to arrival with sharp pain across the front of his chest reproducible to direct palpation. He has a history of heart attacks and coronary disease but no stents. He does not follow with a mountain guide. He does also have a history of blood clots and a strong history of blood clots in his family. He is on Xarelto for the past year because of a right leg blood clot. He says his right leg started hurting again recently in the past week or so in the back of his calf and behind his knee. He is not having any shortness of breath and only a mild amount of nausea. Pain does not radiate. He took some ibuprofen because he was having a mild headache and try to go back to sleep but was unable to because of the pain. He rates his pain as 10 out of 10. He does not take aspirin because of a stated allergy that it causes him to stop breathing. He follows with a primary care provider in [facility]. He has a significant medical history of hyperlipidemia, hypertension, diabetes. He has been off of his Bydureon for the past 3 months because of insurance reasons however he takes Metformin and no insulin. He denies a strong history of GERD or anxiety. He denies recent trauma to the chest, hemoptysis, cough, fevers or any sick contacts. Patient smokes about 1/2 to 1 pack/day and denies alcohol or stimulant use. Patient had a negative stress test by Dr. Milligan in 2008 and stated heart attack in 2011. He also states he has been told by doctors he has COPD but has never had PFTs to prove this. He is not on inhalers. He denies any wheezing. He states that he faithfully wears CPAP at night for obstructive sleep apnea. Allergies and Home Medications Allergies Coded Allergies: aspirin (Unverified Allergy, Mild, 07/10/09) cephalexin (Unverified Allergy, Mild, 07/10/09) hydroxyzine (Unverified Allergy, Mild, 07/10/09) nortriptyline (Verified Allergy, Unknown, 04/27/21) sulfamethoxazole (Verified Allergy, Unknown, 04/27/21) trimethoprim (Verified Allergy, Unknown, 04/27/21) Home Medications Ciprofloxacin HCl 500 Mg Tablet, 500 MG PO BID Prescribed by: KETTY OG on 08/25/17 0822 Cyclobenzaprine Hcl 10 Mg Tablet, 1 TAB PO TID, (Reported) Patient Home Medication List Home Medication List Reviewed: Yes Review of Systems Review of Systems Constitutional: No chills, No diaphoresis, No fever, No malaise EENTM: No Blurred Vision, No Double Vision Respiratory: Denies Cough, Denies Shortness of Air Cardiovascular: Denies Chest Pain, Denies Lightheadedness Gastrointestinal: Denies Abdominal Pain, Denies Constipated, Denies Diarrhea Genitourinary: Denies Burning, Denies Discharge Musculoskeletal: No back pain, No joint pain Skin: No pruritus, No rash Psychiatric/Neurological: Denies Anxiety, Denies Depressed Past Emdnmlu-Andtxy-Jeella Hx Patient Social History Alcohol Use: Denies Use Drug of Choice: Denies Smoking Status: Current Everyday Smoker Type Used: Cigarettes 2nd Hand Smoke Exposure: Yes Recent Hopitalizations: No Seasonal Allergies Seasonal Allergies: No Past Medical History Surgeries: Yes Adenoidectomy, Appendectomy, Bladder Surgery, Gallbladder, Orthopedic, Tonsillectomy Respiratory: No Cardiac: Yes Coronary Artery Disease, Heart Attack, Hypertension Neurological: Yes Neuropathy Genitourinary: No Gastrointestinal: No Musculoskeletal: No Endocrine: Yes Diabetes, Non-Insulin dep HEENT: No Cancer: No Psychosocial: No Integumentary: No Family Medical History Heart Disease, Diabetes, Hypertension, Renal Disease Physical Exam Vital Signs Vital Signs - First Documented 04/27/21 08:24 Temp 37.1 Pulse 89 Resp 20 B/P (MAP) 146/103 (117) Pulse Ox 95 O2 Delivery Room Air Capillary Refill : Height, Weight, BMI Height: 5'9" Weight: 260lbs. oz. 117.059188fm; BMI Method:Stated General Appearance: WD/WN, Mild Distress HEENT: PERRL/EOMI, Moist Mucous Membranes Neck: Full Range of Motion, Normal Inspection Respiratory: No Chest Non Tender (Chest pain was reproducible by direct palpation over the anterior chest bilaterally); Lungs Clear, Normal Breath Sounds, No Accessory Muscle Use, No Respiratory Distress Cardiovascular: Regular Rate, Rhythm, No Edema, Normal Peripheral Pulses Gastrointestinal: Normal Bowel Sounds, Non Tender, Soft Extremity: Normal Capillary Refill, Normal Inspection, Normal Range of Motion Neurologic/Psychiatric: Alert, Oriented x3 Skin: Normal Color, Warm/Dry Progress/Results/Core Measures Results/Orders Lab Results Laboratory Tests Test 04/27/21 08:34 Range/Units White Blood Count 8.0 4.3-11.0 10^3/uL Red Blood Count 5.75 H 4.30-5.52 10^6/uL Hemoglobin 15.6 13.3-17.7 g/dL Hematocrit 47 40-54 % Mean Corpuscular Volume 82 80-99 fL Mean Corpuscular Hemoglobin 27 25-34 pg Mean Corpuscular Hemoglobin Concent 33 32-36 g/dL Red Cell Distribution Width 14.6 H 10.0-14.5 % Platelet Count 245 130-400 10^3/uL Mean Platelet Volume 10.2 9.0-12.2 fL Immature Granulocyte % (Auto) 0 % Neutrophils (%) (Auto) 47 42-75 % Lymphocytes (%) (Auto) 42 12-44 % Monocytes (%) (Auto) 8 0-12 % Eosinophils (%) (Auto) 3 0-10 % Basophils (%) (Auto) 1 0-10 % Neutrophils # (Auto) 3.8 1.8-7.8 10^3/uL Lymphocytes # (Auto) 3.4 1.0-4.0 10^3/uL Monocytes # (Auto) 0.6 0.0-1.0 10^3/uL Eosinophils # (Auto) 0.3 0.0-0.3 10^3/uL Basophils # (Auto) 0.1 0.0-0.1 10^3/uL Immature Granulocyte # (Auto) 0.0 0.0-0.1 10^3/uL Prothrombin Time 15.9 H 12.2-14.7 SEC INR Comment 1.2 0.8-1.4 Activated Partial Thromboplast Time 28 24-35 SEC D-Dimer <= 0.27 0.00-0.49 UG/ML Sodium Level 136 135-145 MMOL/L Potassium Level 3.8 3.6-5.0 MMOL/L Chloride Level 103 98-107 MMOL/L Carbon Dioxide Level 19 L 21-32 MMOL/L Anion Gap 14 5-14 MMOL/L Blood Urea Nitrogen 14 7-18 MG/DL Creatinine 1.00 0.60-1.30 MG/DL Estimat Glomerular Filtration Rate > 60 BUN/Creatinine Ratio 14 Glucose Level 253 H 70-105 MG/DL Calcium Level 9.0 8.5-10.1 MG/DL Corrected Calcium 9.0 8.5-10.1 MG/DL Magnesium Level 1.9 1.6-2.4 MG/DL Total Bilirubin 0.7 0.1-1.0 MG/DL Aspartate Amino Transf (AST/SGOT) 11 5-34 U/L Alanine Aminotransferase (ALT/SGPT) 16 0-55 U/L Alkaline Phosphatase 79 40-136 U/L Myoglobin 45.7 10.0-92.0 NG/ML Troponin I < 0.028 <0.028 NG/ML Total Protein 7.5 6.4-8.2 GM/DL Albumin 4.0 3.2-4.5 GM/DL Lipase 43 8-78 U/L My Orders Orders - JENNIFER GARCIA Cbc With Automated Diff (04/27/21 08:36) Magnesium (04/27/21 08:36) Chest 1 View, Ap/Pa Only (04/27/21 08:36) Ekg Tracing (04/27/21 08:36) Comprehensive Metabolic Panel (04/27/21 08:36) Myoglobin Serum (04/27/21 08:36) Protime With Inr (04/27/21 08:36) Partial Thromboplastin Time (04/27/21 08:36) O2 (04/27/21 08:36) Monitor-Rhythm Ecg Trace Only (04/27/21 08:36) Lipid Panel (04/28/21 06:00) Ed Iv/Invasive Line Start (04/27/21 08:36) Lipase (04/27/21 08:36) Troponin I (04/27/21 08:36) Nitroglycerin 0.4 Mg Btl 25's (Nitrostat (04/27/21 08:45) Fibrin Degradation Products (04/27/21 08:36) Medications Given in ED Current Medications Medications Dose Ordered Sig/Yoel Route Start Time Stop Time Status Last Admin Dose Admin Nitroglycerin 0.4 mg UD PRN SL 04/27/21 08:45 04/27/21 08:41 0.4 MG Vital Signs/I&O 04/27/21 04/27/21 08:24 08:24 Temp 37.1 Pulse 89 Resp 20 B/P (MAP) 146/103 (117) Pulse Ox 95 O2 Delivery Room Air Room Air Progress Progress Note : Time: 08:44 Progress Note We will withhold aspirin since he has a stated allergy to it and give him some nitroglycerin. Chest x-ray, D-dimer and labs. If we do not find another reason for his chest pain and he has a negative troponin he would still have a heart score 4 points giving him high risk, obviating an observation stay for further risk stratification for his heart. Initial ECG Impression Date: Apr 27, 2021 Initial ECG Impression Time: 08:26 Initial ECG Rate: 82 Initial ECG Rhythm: Normal Sinus Initial ECG Intervals: Normal Initial ECG Impression: Normal, Nonspecific Changes Comment Sinus rhythm without clinically relevant ST elevation or depression. Diagnostic Imaging Diagonstic Imaging: Xray Plain Films/CT/US/NM/MRI: chest Comments [facility] [place], [place] NAME: [facility]AV[facility]AS [facility] REC#: [id number] PT STATUS: REG ER : 1975 PHYSICIAN: JENNIFER GARCIA MD ADMIT DATE: 04/27/21/ER Draft Date of Exam:04/27/21 CHEST 1 VIEW, AP/PA ONLY INDICATION: Chest pain. TECHNIQUE: Single view chest 8:42 AM. CORRELATION STUDY: 05/05/2010 FINDINGS: Heart size is borderline enlarged. Vasculature overall slightly increased. The lungs are clear with no consolidating infiltrate. There is no significant effusion or pneumothorax. IMPRESSION: 1. Borderline heart size and vasculature. Dictated on workstation # [id number] Dict: 04/27/21 0851 Trans: 04/27/21 0854 SHARON [id number] Interpreted by: ARCELIA MEIER DO Electronically signed by: Reviewed: Reviewed by Me Departure Communication (Admissions) Time/Spoke to Admitting Phy: 09:20 Discussed the case with Dr. Cardoso and he agrees to consult with cardiology. Time/Spoke to Consulting Phy: 09:15 Discussed the case with Dr. Richardson and he agrees to consult on the case. N.p.o. until he sees him. Impression Primary Impression: ACS (acute coronary syndrome) Disposition: ADMITTED INPATIENT Condition: Stable Admissions Decision to Admit Reason: Admit from ER (General) Decision to Admit/Date: Apr 27, 2021 Time/Decision to Admit Time: 09:00 Departure-Patient Inst. Referrals: [facility] (PCP) Primary Care Physician JENNIFER GARCIA Apr 27, 2021 08:42
[2021-04-27 08:45] LABS: BASOPHILS # (AUTO) 0.1 10^3/uL (0.0-0.1); BASOPHILS % (AUTO) 1 % (0-10); EOSINOPHILS # (AUTO) 0.3 10^3/uL (0.0-0.3); EOSINOPHILS % (AUTO) 3 % (0-10); HEMATOCRIT 47 % (40-54); HEMOGLOBIN 15.6 g/dL (13.3-17.7); LYMPHOCYTES # (AUTO) 3.4 10^3/uL (1.0-4.0); LYMPHOCYTES % (AUTO) 42 % (12-44); MEAN CORPUSCULAR HEMOGLOBIN 27 pg (25-34); MEAN CORPUSCULAR HGB CONC 33 g/dL (32-36); MEAN CORPUSCULAR VOLUME 82 fL (80-99); MEAN PLATELET VOLUME 10.2 fL (9.0-12.2); MONOCYTES # (AUTO) 0.6 10^3/uL (0.0-1.0); MONOCYTES % (AUTO) 8 % (0-12); NEUTROPHILS # (AUTO) 3.8 10^3/uL (1.8-7.8); NEUTROPHILS % (AUTO) 47 % (42-75); PLATELET COUNT 245 10^3/uL (130-400)
[2021-04-27] MEDS ORDERED: NITROGLYCERIN 0.4 MG SL TABS BTL 25'S SL PRN ×2 (08:45→12:30)
[2021-04-27 08:55] LABS: CHLORIDE 103 MMOL/L (98-107); POTASSIUM 3.8 MMOL/L (3.6-5.0); SODIUM 136 MMOL/L (135-145)
--- NOTE | 2021-04-27 08:55 | Diagnostic Imaging Report ---
INDICATION: Chest pain. TECHNIQUE: Single view chest 8:42 AM. CORRELATION STUDY: 05/05/2010 FINDINGS: Heart size is borderline enlarged. Vasculature overall slightly increased. The lungs are clear with no consolidating infiltrate. There is no significant effusion or pneumothorax. IMPRESSION: 1. Borderline heart size and vasculature. Dictated by: Dictated on workstation # [id number]
[2021-04-27 08:57] LABS: GLUCOSE 253 MG/DL (70-105); TOTAL PROTEIN 7.5 GM/DL (6.4-8.2)
[2021-04-27 08:58] LABS: CARBON DIOXIDE 19 MMOL/L (21-32)
[2021-04-27 08:59] LABS: BILIRUBIN,TOTAL 0.7 MG/DL (0.1-1.0)
[2021-04-27 09:00] LABS: ALKALINE PHOSPHATASE 79 U/L (40-136); FIBRIN DEGRADATION PRODUCTS <= 0.27 UG/ML (0.00-0.49); INR 1.2 (0.8-1.4); PARTIAL THROMBOPLASTIN TIME 28 SEC (24-35); PROTHROMBIN TIME PATIENT 15.9 SEC (12.2-14.7)
[2021-04-27 09:01] LABS: GFR ESTIMATED > 60
[2021-04-27 09:02] LABS: BUN/CREATININE RATIO 14
[2021-04-27 09:03] LABS: MAGNESIUM 1.9 MG/DL (1.6-2.4)
[2021-04-27 09:04] LABS: ALANINE AMINOTRANSFERASE 16 U/L (0-55); LIPASE 43 U/L (8-78)
[2021-04-27 12:12] VITALS: BP 138/88
[2021-04-27] MEDS ORDERED: morphine INJ 4 MG/ML 1 ML (VIAL/SYRINGE) IV PRN (12:30)
[2021-04-27] MEDS ORDERED: NS IV 1000 ML 1,000 ML IV SCH (12:30)
[2021-04-27] MEDS ORDERED: CATHETER FLUSH 10 ML SYR IV PRN (12:30)
[2021-04-27] MEDS ORDERED: ONDANSETRON 4 MG/2 ML (SDV) Z0FRAN IVP PRN ×2 (12:30→21:15)
--- NOTE | 2021-04-27 12:35 | History & Physical-Hospitalist ---
History of Present Illness HPI/Chief Complaint Chief complaint: Chest pain History of present illness: This is a 45-year-old white male clinic patient of [facility] who presents with chest pain. Cardiology has been consulted. His pain is very suspicious for unstable angina so will be monitored closely in the meantime. He does have a history of CAD and heart attack. He does continue to smoke. Source: patient, family Exam Limitations: no limitations Date Seen 04/27/21 Time Seen by a Provider: 11:30 Attending Physician Dorothy Cardoso DO [facility] Referring Physician Date of Admission Apr 27, 2021 at 09:25 Home Medications & Allergies Home Medications Reviewed patient Home Medication Reconciliation performed by pharmacy medication reconciliations rim technician and/or nursing. Patients Allergies have been reviewed. Allergies Allergies Coded Allergies aspirin (Unverified Allergy, Mild, 07/10/09) cephalexin (Unverified Allergy, Mild, 07/10/09) hydroxyzine (Unverified Allergy, Mild, 07/10/09) nortriptyline (Verified Allergy, Unknown, 04/27/21) sulfamethoxazole (Verified Allergy, Unknown, 04/27/21) trimethoprim (Verified Allergy, Unknown, 04/27/21) Past Mqqjvjt-Jtehjg-Gkufyr Hx Patient Social History Marrital Status: Employed/Student: employed Smoking Status: Current Everyday Smoker Seasonal Allergies Seasonal Allergies: No Past Medical History Surgeries: Adenoidectomy, Appendectomy, Bladder Surgery, Gallbladder, Orthopedic, Tonsillectomy Sleep Apnea Coronary Artery Disease, Heart Attack, High Cholesterol, Hypertension Neuropathy Diabetes, Non-Insulin dep Family Medical History Heart Disease, Diabetes, Hypertension, Renal Disease Review of Systems Constitutional: see HPI Cardiovascular: chest pain Physical Exam Physical Exam Vital Signs Vital Signs - First Documented 04/27/21 08:24 Temp 37.1 Pulse 89 Resp 20 B/P (MAP) 146/103 (117) Pulse Ox 95 O2 Delivery Room Air Capillary Refill : Less Than 3 Seconds Height, Weight, BMI Height: 5'9" Weight: 260lbs. oz. [id number]; 35.00 BMI Method:Stated General Appearance: No Apparent Distress Eyes: Right Eye Normal Inspection, Right Eye PERRL HEENT: PERRL/EOMI, TMs Normal, Normal ENT Inspection, Pharynx Normal, Moist Mucous Membranes Neck: Full Range of Motion, Normal Inspection, Non Tender Respiratory: Chest Non Tender, Lungs Clear, Normal Breath Sounds, No Accessory Muscle Use, No Respiratory Distress Cardiovascular: Regular Rate, Rhythm, No Edema, No Gallop, No JVD, No Murmur, Normal Peripheral Pulses Gastrointestinal: Normal Bowel Sounds, No Organomegaly, No Pulsatile Mass, Non Tender, Soft Back: Normal Inspection, No CVA Tenderness, No Vertebral Tenderness Extremity: Normal Capillary Refill, Normal Inspection, Normal Range of Motion, Non Tender, No Calf Tenderness, No Pedal Edema Neurologic/Psychiatric: Alert, Oriented x3, No Motor/Sensory Deficits, Normal Mood/Affect Skin: Normal Color, Warm/Dry Lymphatic: No Adenopathy Results Results/Procedures Labs Laboratory Tests 04/27/21 08:34 04/28/21 03:40 Patient resulted labs reviewed. Assessment/Plan Admission Diagnosis Assessment: Chest pain with history of CAD Smoker Plan: Cardiology consultation for risk stratification Admission Status: Observation Clinical Quality Measures AMI/AHF: ASA po Prior to arrival: DOROTHY Davenport DO Apr 27, 2021 12:35
[2021-04-27] MEDS ORDERED: CYCL10TA9 PO (13:25)
[2021-04-27] MEDS ORDERED: AMLO-251 PO (13:25)
[2021-04-27] MEDS ORDERED: METF-478 PO (13:25)
[2021-04-27] MEDS ORDERED: ATOR40TA70 PO (13:25)
[2021-04-27] MEDS ORDERED: AMIT25TA9 PO (13:25)
[2021-04-27] MEDS ORDERED: OMEP20TA7 PO (13:25)
[2021-04-27] MEDS ORDERED: LISI10TA25 PO (13:25)
[2021-04-27] MEDS ORDERED: RIVA20TA PO (13:25)
[2021-04-27] MEDS ORDERED: DAPA10TA PO (13:25)
[2021-04-27] MEDS ORDERED: IBUP-2185 PO (13:26)
[2021-04-27] MEDS ORDERED: CATHETER FLUSH 10 ML SYR IV SCH (14:00)
[2021-04-27] MEDS: ACETAMINOPHEN 500 MG TAB (TYLENOL) PO PRN ×2 (14:46→21:46)
--- NOTE | 2021-04-27 17:41 | Consultation-Cardiology ---
HPI-Cardiology Cardiology Consultation: Date of Consultation 04/27/21 Date of Admission Attending Physician Dorothy Cardoso DO Admitting Physician [facility] Consulting Physician VERONICA MATHIS JR, MD HPI: Time Seen by a Provider: 17:36 Chief Complaint: Reason for consultation: Chest pain. I had the pleasure of seeing Stanislaw on the cardiac stepdown unit today. He has a history of pulmonary emboli on 2 separate occasions on chronic oral an ticoagulation, hypertension, hyperlipidemia, type 2 diabetes mellitus with neuropathy, gastroesophageal reflux disease, cigarette smoking, and obesity among several other less clinically significant issues. He was in his usual state of health until this morning when he woke from sleep with substernal chest discomfort. He describes this as a sharp pain in the center of his chest. He denies any associated symptoms. This lasted for 20-30 seconds then resolved. He does have a long history of intermittent chest pains and has undergone at least 4 stress tests in the past but has never undergone a cardiac catheterization. In the past when he would get chest pain, this would radiate to his right shoulder and arm. This morning there was no radiation of the chest discomfort. This made him concerned and he came to the hospital for further evaluation. He was worried that he might of had a recurrent blood clot in his lungs. Since being here in the hospital, he has had some milder substernal chest pressure on the left side of his chest. These are very brief. He denies any associated symptoms or radiation with these other chest pains. He denies dyspnea on exertion, paroxysmal nocturnal dyspnea, Palpitations, lightheadedness, or syncope. He does get mild ankle edema off and on. He also has chronic pain in his lower extremities which he relates is due to his neuropathy. He smokes approximately 1 pack of cigarettes per day. 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 Because of the chest pain, a cardiology consultation was r equested. Review of Systems-Cardiology Review of Systems Other comments Review of 10 organ systems is as per the history of present illness, otherwise negative. [id number]-Efduyq Hx Patient Social History Smoking Status: Current Everyday Smoker 2nd Hand Smoke Exposure: Yes Have you traveled recently?: No Alcohol Use?: Yes Pt feels they are or have been: No Tobacco type used: Cigarettes Past Medical History PMH As described under Assessment. Allergies and Home Medications Allergies Coded Allergies: aspirin (Unverified Allergy, Mild, 07/10/09) cephalexin (Unverified Allergy, Mild, 07/10/09) hydroxyzine (Unverified Allergy, Mild, 07/10/09) nortriptyline (Verified Allergy, Unknown, 04/27/21) sulfamethoxazole (Verified Allergy, Unknown, 04/27/21) trimethoprim (Verified Allergy, Unknown, 04/27/21) Home Medications Amitriptyline HCl 25 Mg Tablet, 25 MG PO HS, (Reported) Last Action: Reviewed Cyclobenzaprine HCl 10 Mg Tablet, 10 MG PO HS, (Reported) Last Action: Reviewed Ibuprofen 200 Mg Capsule, 400-600 MG PO Q8H PRN for PAIN-MILD (1-4), (Reported) Last Action: Reviewed Lisinopril 10 Mg Tablet, 10 MG PO HS, (Reported) Last Action: Reviewed Metformin HCl 500 Mg Tab.er.24, 1,000 MG PO BID, (Reported) TAKES 2 (500MG) TABS Last Action: Reviewed Omeprazole 20 Mg Tablet.dr, 20 MG PO BIDAC, (Reported) Last Action: Reviewed Rivaroxaban 20 Mg Tablet, 20 MG PO HS, (Reported) Last Action: Reviewed Patient Home Medication List Home Medication List Reviewed: Yes Physical Exam-Cardiology Physical Exam Vital Signs/I&O 04/27/21 04/27/21 04/27/21 04/27/21 08:24 08:24 12:12 12:41 Temp 37.1 37.1 Pulse 89 63 Resp 20 20 B/P (MAP) 146/103 (117) 138/88 (117) Pulse Ox 95 95 96 O2 Delivery Room Air Room Air Room Air Capillary Refill : Less Than 3 Seconds Constitutional: appears stated age, AAO x 3, well-developed, well-nourished, other (He is obese.) HEENT: other (Extraocular movements are intact. Sclera are clear. There are no xanthelasma.), EOMI Neck: non-tender, full range of motion, supple, carotid pulses are 2 + bilaterally, with good upstrokes Respiratory: lungs clear to auscultation Cardiovascular: regular rate-rhythm, S1 and S2, other (No murmurs, rubs or gallops appreciated.) Gastrointestinal: other (The abdomen is soft, nontender and nondistended.) Rectal: deferred Extremities: normal range of motion, non-tender, normal inspection, no lower extremity edema bilateral Neurologic/Psychiatric: alert, normal mood/affect, oriented x 3, other (Cranial nerves II through XII are grossly intact. The patient has good motor tone and strength in the upper and lower extremities bilaterally.) Data Review Labs Laboratory Tests 04/27/21 08:34: White Blood Count 8.0, Red Blood Count 5.75H, Hemoglobin 15.6, Hematocrit 47, Mean Corpuscular Volume 82, Mean Corpuscular Hemoglobin 27, Mean Corpuscular Hemoglobin Concent 33, Red Cell Distribution Width 14.6H, Platelet Count 245, Mean Platelet Volume 10.2, Immature Granulocyte % (Auto) 0, Neutrophils (%) (Auto) 47, Lymphocytes (%) (Auto) 42, Monocytes (%) (Auto) 8, Eosinophils (%) (Auto) 3, Basophils (%) (Auto) 1, Neutrophils # (Auto) 3.8, Lymphocytes # (Auto) 3.4, Monocytes # (Auto) 0.6, Eosinophils # (Auto) 0.3, Basophils # (Auto) 0.1, Immature Granulocyte # (Auto) 0.0, Prothrombin Time 15.9H, INR Comment 1.2, Activated Partial Thromboplast Time 28, D-Dimer <= 0.27, Sodium Level 136, Pota ssium Level 3.8, Chloride Level 103, Carbon Dioxide Level 19L, Anion Gap 14, Blood Urea Nitrogen 14, Creatinine 1.00, Estimat Glomerular Filtration Rate > 60, BUN/Creatinine Ratio 14, Glucose Level 253H, Calcium Level 9.0, Corrected Calcium 9.0, Magnesium Level 1.9, Total Bilirubin 0.7, Aspartate Amino Transf (AST/SGOT) 11, Alanine Aminotransferase (ALT/SGPT) 16, Alkaline Phosphatase 79, Myoglobin 45.7, Troponin I < 0.028, Total Protein 7.5, Albumin 4.0, Lipase 43 04/27/21 12:35: Troponin I < 0.028 ECG Impression ECG Comment Sinus rhythm with left anterior hemiblock and poor R wave progression. No acute ST changes. A/P-Cardiology Assessment/Admission Diagnosis Chest pain. Exact etiology unclear. He does have multiple cardiac risk factors including hypertension, hyperlipidemia, diabetes mellitus and cigarette smoking. His first 2 troponin levels are negative. There are no ischemic changes on his resting electrocardiogram. His symptoms are somewhat atypical in nature. Nonetheless, given his risk factors, it is not unreasonable to observe him overnight in the hospital. I will increase his dose of proton pump inhibitor in the event some of this is due to gastroesophageal reflux disease. Depending upon how he does overnight, we can decide in the morning whether he can go home and return early next week for a stress test or if he has ongoing chest discomfort overnight, he may need to stay in the hospital for an ischemic evaluation on Friday. If that is the case, I might consider proceeding directly to cardiac catheterization. He is allergic to aspirin. Abnormal ECG. He has a borderline abnormal ECG showing poor R wave progression with a left axis deviation and left anterior hemiblock. The poor R wave progression may be related to the left anterior hemiblock. We will proceed as above. Essential hypertension. His outpatient antihypertensive medication will need to be resumed. We will monitor his blood pressures closely here in the hospital. Mixed hyperlipidemia. He has not been taking a statin medication at home. The hospitalist has ordered a fasting lipid profile for the morning. We can use this information to determine whether or not he might require statin medication. Cigarette smoker. Cigarette smoking cessation was strongly encouraged. The patient was counseled in this regard. Type 2 diabetes mellitus with complications. His outpatient medications will ne ed to be resumed. If he ends up staying over the weekend and we go for cardiac catheterization, we will need to hold his Metformin prior to and following the procedure. Obesity. The patient was counseled about lifestyle modification with exercise, diet and weight loss. Clinical Quality Measures AMI/AHF: ASA po Prior to arrival: VERONICA Angelo JR, MD Apr 27, 2021 17:41
[2021-04-27] MEDS ORDERED: PANTOPRAZOLE 40 MG (PROTONIX) TAB PO NR (17:45)
[2021-04-27] MEDS: inSUlin ASPART (NovoLOG) 1 UNIT/0.01 ML (CHARGE PER UNIT) SC SCH ×2 (18:57→21:40)
[2021-04-27] MEDS ORDERED: DOCUSATE SODIUM 100 MG (COLACE) CAP PO PRN (21:15)
[2021-04-27] MEDS ORDERED: LOPERAMIDE 2 MG (IMODIUM) TABLET PO PRN (21:15)
[2021-04-27] MEDS ORDERED: ACETAMINOPHEN 500 MG TAB (TYLENOL) PO PRN (21:15)
[2021-04-27] MEDS ORDERED: CALCIUM CARBONATE 500 MG (TUMS) TAB.CHEW PO PRN (21:15)
[2021-04-27] MEDS ORDERED: diphenhydrAMINE 25 MG TAB (BENADRYL) PO PRN (21:15)
[2021-04-27] MEDS ORDERED: HYDROcodone/APAP 5 MG/325 MG (LORTAB) TAB PO PRN (21:15)
[2021-04-27] MEDS ORDERED: ALPRAZolam 0.25 MG (XANAX) TAB PO PRN (21:15)
[2021-04-27] MEDS ORDERED: MELATONIN 3 MG TABLET PO PRN (21:15)
[2021-04-27] MEDS ORDERED: ENOXAPARIN 40 MG/0.4 ML (LOVENOX) SYR SC SCH (23:00)
[2021-04-28 03:59] LABS: BASOPHILS # (AUTO) 0.1 10^3/uL (0.0-0.1); BASOPHILS % (AUTO) 1 % (0-10); EOSINOPHILS # (AUTO) 0.3 10^3/uL (0.0-0.3); EOSINOPHILS % (AUTO) 4 % (0-10); HEMATOCRIT 46 % (40-54); HEMOGLOBIN 15.2 g/dL (13.3-17.7); LYMPHOCYTES # (AUTO) 3.3 10^3/uL (1.0-4.0); LYMPHOCYTES % (AUTO) 43 % (12-44); MEAN CORPUSCULAR HEMOGLOBIN 28 pg (25-34); MEAN CORPUSCULAR HGB CONC 33 g/dL (32-36); MEAN CORPUSCULAR VOLUME 83 fL (80-99); MEAN PLATELET VOLUME 10.1 fL (9.0-12.2); MONOCYTES # (AUTO) 0.8 10^3/uL (0.0-1.0); MONOCYTES % (AUTO) 11 % (0-12); NEUTROPHILS # (AUTO) 3.1 10^3/uL (1.8-7.8); NEUTROPHILS % (AUTO) 41 % (42-75); PLATELET COUNT 228 10^3/uL (130-400); WHITE BLOOD COUNT 7.6 10^3/uL (4.3-11.0)
[2021-04-28 04:23] LABS: ALBUMIN 3.6 GM/DL (3.2-4.5); CHLORIDE 105 MMOL/L (98-107); SODIUM 136 MMOL/L (135-145)
[2021-04-28 04:25] LABS: GLUCOSE 198 MG/DL (70-105); TOTAL PROTEIN 7.2 GM/DL (6.4-8.2); TRIGLYCERIDES 765 MG/DL (<150); VLDL CHOLESTEROL 153 MG/DL (5-40)
[2021-04-28 04:26] LABS: CARBON DIOXIDE 17 MMOL/L (21-32)
[2021-04-28 04:27] LABS: BILIRUBIN,TOTAL 0.4 MG/DL (0.1-1.0)
[2021-04-28 04:29] LABS: ALKALINE PHOSPHATASE 76 U/L (40-136); GFR ESTIMATED > 60
[2021-04-28 04:30] LABS: BUN/CREATININE RATIO 16; CHOLESTEROL 188 MG/DL (< 200)
[2021-04-28 04:31] LABS: HDL CHOLESTEROL 29 MG/DL (40-60)
[2021-04-28 04:32] LABS: ALANINE AMINOTRANSFERASE 18 U/L (0-55)
[2021-04-28] MEDS: inSUlin ASPART (NovoLOG) 1 UNIT/0.01 ML (CHARGE PER UNIT) SC SCH ×2 (06:10→11:25)
[2021-04-28] MEDS ORDERED: polyethylene glycoL POWDER 17 GM (MIRALAX) PACK PO SCH (09:00)
[2021-04-28] MEDS ORDERED: PANTOPRAZOLE 40 MG (PROTONIX) TAB PO SCH (09:00)
[2021-04-28] MEDS ORDERED: SENNA W/DOCUSATE (SENOKOT S) TABLET PO SCH (09:00)
--- NOTE | 2021-04-28 11:44 | Cardiology Progress Note ---
Cardiology Progess Note Progress Date Seen by Provider: Apr 28, 2021 Time Seen by Provider: 11:39 We are seeing him for chest pain. Overnight, he denies any further chest discomfort that he was experiencing prior to admission. He has had some mild indigestion but denies nausea or vomiting. He denies dyspnea, palpitations, syncope, or lower extremity edema. He wants to go home. Focused Exam Respiratory: Lungs Clear, Normal Breath Sounds, No Respiratory Distress Cardiovascular: Regular Rate, Rhythm, No Edema, No Gallop, No Murmur, Normal Peripheral Pulses Skin: normal color, warm/dry A/P-Cardiology Assessment/Plan Plan See below. Diagnosis/Problems Diagnosis/Problems (1) Chest pain Assessment & Plan: None further. He had 2 undetectable troponin levels. Although his resting electrocardiogram was mildly abnormal, there were no ischemic changes. I will have him undergo an echocardiogram this morning. If this does not show any regional wall motion abnormalities, the patient can be discharged home with close follow-up with my office to arrange for nuclear stress test early next week. We may have an issue with this due to the patie nt's lack of insurance but we will do our best to get this arranged. I have adjusted his proton pump inhibitor because I believe some of his chest discomfort could be related to the gastroesophageal reflux disease. I should note, he is allergic to aspirin and gets throat swelling. (2) Abnormal ECG Assessment & Plan: His ECG on admission showed poor R wave progression with nonspecific T wave changes but no ischemic changes. As above, he has had 2 - troponin levels. We will proceed as above. (3) Essential hypertension Assessment & Plan: Blood pressures are improved. Continue lisinopril. (4) Mixed hyperlipidemia Assessment & Plan: He has markedly elevated triglycerides. Some of this may be related to his poor blood sugar control. Once his blood sugars under better control, this should be reassessed and then we can determine whether or not he needs cholesterol medication. (5) Gastroesophageal reflux disease Assessment & Plan: As above, I suspect his gastroesophageal reflux disease may be responsible for at least some of his chest discomfort if not all of the chest discomfort. He was taking very low-dose of omeprazole at home. I have changed this over to pantoprazole 40 mg once a day. I recommend he be discharged with a prescription for this medication. (6) Cigarette smoker Assessment & Plan: He was again encouraged to quit smoking. (7) Type 2 diabetes mellitus without complication Assessment & Plan: The last HbA1c he can recall was 11%. This is markedly elevated. He needs to get his diabetes under much better control. Clinical Quality Measures AMI/AHF: ASA po Prior to arrival: VERONICA Angelo JR, MD Apr 28, 2021 11:44
--- NOTE | 2021-04-28 12:22 | Discharge Summary ---
Discharge Summary Hospital Course Was the Problem List Reviewed?: Yes Problems/Dx: (1) Chest pain (2) Abnormal ECG (3) Essential hypertension (4) Mixed hyperlipidemia (5) Gastroesophageal reflux disease (6) Cigarette smoker (7) Type 2 diabetes mellitus without complication Hospital Course Date of Admission: Apr 27, 2021 at 09:25 Admission Diagnosis : [facility] Date of Discharge: 04/28/21 Discharge Diagnosis: Chest pain without evidence of acute coronary syndrome, smoker, CAD, history of PE Hospital Course: Patient had an uneventful hospital course after he was admitted for observation for chest pain and acute coronary syndrome was ruled out along with cardiology consultation. Echocardiogram performed and everything was stable so he was discharged in improved condition with smoking cessation counseling. Labs and Pending Lab Test: Laboratory Tests 04/27/21 12:35: Troponin I < 0.028 04/27/21 19:32: Glucometer 115H 04/28/21 03:40: White Blood Count 7.6, Red Blood Count 5.50, Hemoglobin 15.2, Hematocrit 46, Mean Corpuscular Volume 83, Mean Corpuscular Hemoglobin 28, Mean Corpuscular Hemoglobin Concent 33, Red Cell Distribution Width 14.5, Platelet Count 228, Mean Platelet Volume 10.1, Immature Granulocyte % (Auto) 0, Neutrophils (%) (Auto) 41L, Lymphocytes (%) (Auto) 43, Monocytes (%) (Auto) 11, Eosinophils (%) (Auto) 4, Basophils (%) (Auto) 1, Neutrophils # (Auto) 3.1, Lymphocytes # (Auto) 3.3, Monocytes # (Auto) 0.8, Eosinophils # (Auto) 0.3, Basophils # (Auto) 0.1, Immature Granulocyte # (Auto) 0.0, Sodium Level 136, Potassium Level 4.0, Chloride Level 105, Carbon Dioxide Level 17L, Anion Gap 14, Blood Urea Nitrogen 14, Creatinine 0.90, Estimat Glomerular Filtration Rate > 60, BUN/Creatinine Ratio 16, Glucose Level 198H, Calcium Level 9.0, Corrected Calcium 9.3, Total Bilirubin 0.4, Aspartate Amino Transf (AST/SGOT) 14, Alanine Aminotransferase (ALT/SGPT) 18, Alkaline Phosphatase 76, Total Protein 7.2, Albumin 3.6, Triglycerides Level 765H, Cholesterol Level 188, LDL Cholesterol Direct 87, VLDL Cholesterol 153H, HDL Cholesterol 29L Home Meds Active Reported Ibuprofen 200 Mg Capsule 400-600 Mg PO Q8H PRN Omeprazole 20 Mg Tablet.dr 20 Mg PO BIDAC Cyclobenzaprine HCl 10 Mg Tablet 10 Mg PO HS Metformin HCl ER (Metformin HCl) 500 Mg Tab.er.24 1,000 Mg PO BID TAKES 2 (500MG) TABS Lisinopril 10 Mg Tablet 10 Mg PO HS Amitriptyline HCl 25 Mg Tablet 25 Mg PO HS Xarelto (Rivaroxaban) 20 Mg Tablet 20 Mg PO HS Assessment/Pt Instructions [facility] in 1 week Discharge Planning: <30 minutes discharge planning Discharge Instructions Discharge Diet: Cardiac Diet Activity as Tolerated: Yes Discharge Physical Examination Vital Signs Vital Signs Date Time Temp Pulse Resp B/P (MAP) Pulse Ox O2 Delivery O2 Flow Rate FiO2 04/28/21 11:49 96 04/28/21 08:00 37.0 74 37 144/85 (104) Room Air General Appearance: No Apparent Distress, WD/WN, Chronically ill Allergies: Coded Allergies: aspirin (Unverified Allergy, Mild, 07/10/09) cephalexin (Unverified Allergy, Mild, 07/10/09) hydroxyzine (Unverified Allergy, Mild, 07/10/09) nortriptyline (Verified Allergy, Unknown, 04/27/21) sulfamethoxazole (Verified Allergy, Unknown, 04/27/21) trimethoprim (Verified Allergy, Unknown, 04/27/21) Discharge Summary Date of Admission Apr 27, 2021 at 09:25 Date of Discharge Discharge Date: Apr 28, 2021 Admission Diagnosis Assessment: Chest pain with history of CAD Smoker Plan: Cardiology consultation for risk stratification Discharge Diagnosis (1) Chest pain Assessment & Plan: None further. He had 2 undetectable troponin levels. Although his resting electrocardiogram was mildly abnormal, there were no ischemic changes. I will have him undergo an echocardiogram this morning. If this does not show any regional wall motion abnormalities, the patient can be discharged home with close follow-up with my office to arrange for nuclear stress test early next week. We may have an issue with this due to the patien t's lack of insurance but we will do our best to get this arranged. I have adjusted his proton pump inhibitor because I believe some of his chest discomfort could be related to the gastroesophageal reflux disease. I should note, he is allergic to aspirin and gets throat swelling. (2) Abnormal ECG Assessment & Plan: His ECG on admission showed poor R wave progression with nonspecific T wave changes but no ischemic changes. As above, he has had 2 - troponin levels. We will proceed as above. (3) Essential hypertension Assessment & Plan: Blood pressures are improved. Continue lisinopril. (4) Mixed hyperlipidemia Assessment & Plan: He has markedly elevated triglycerides. Some of this may be related to his poor blood sugar control. Once his blood sugars under better control, this should be reassessed and then we can determine whether or not he needs cholesterol medication. (5) Gastroesophageal reflux disease Assessment & Plan: As above, I suspect his gastroesophageal reflux disease may be responsible for at least some of his chest discomfort if not all of the chest discomfort. He was taking very low-dose of omeprazole at home. I have changed this over to pantoprazole 40 mg once a day. I recommend he be discharged with a prescription for this medication. (6) Cigarette smoker Assessment & Plan: He was again encouraged to quit smoking. (7) Type 2 diabetes mellitus without complication Assessment & Plan: The last HbA1c he can recall was 11%. This is markedly elevated. He needs to get his diabetes under much better control. Clinical Quality Measures AMI/AHF: ASA po Prior to arrival: SUZANNE Davenport DO Apr 28, 2021 12:22
== END 2021-04-28 13:55 | disposition home or self-care (01) ==
LOC: EDUNIT# 08:24 → ER 08:27 → CSD 09:25
PROVIDERS: ADMIT Internal Medicine; ATTEND Internal Medicine
DX: R07.9 Chest pain, unspecified (principal); I24.9 Acute ischemic heart disease, unspecified; I25.10 Atherosclerotic heart disease of native coronary artery without angina pectoris; I11.9 Hypertensive heart disease without heart failure; E11.40 Type 2 diabetes mellitus with diabetic neuropathy, unspecified; E78.2 Mixed hyperlipidemia; K21.9 Gastro-esophageal reflux disease without esophagitis; I07.1 Rheumatic tricuspid insufficiency; G47.33 Obstructive sleep apnea (adult) (pediatric); E78.00 Pure hypercholesterolemia, unspecified; I44.4 Left anterior fascicular block; F17.210 Nicotine dependence, cigarettes, uncomplicated; Z86.711 Personal history of pulmonary embolism; Z79.1 Long term (current) use of non-steroidal anti-inflammatories (NSAID); Z79.899 Other long term (current) drug therapy; Z79.84 Long term (current) use of oral hypoglycemic drugs; Z79.01 Long term (current) use of anticoagulants; Z87.448 Personal history of other diseases of urinary system
CPT/HCPCS: 36415; 71045; 80053; 80061; 82947; 83690; 83735; 83874; 84484; 85025; 85379; 85610; 85730; 93005; 93041; 93306

== ENCOUNTER 2021-06-07 05:48 | Observation (INO) | payer SELFPAY ==
[~2021-06-07] VITALS: Ht 172 cm; Wt 110.9 kg
[2021-06-07] VITALS (13 sets, daily range): BP systolic 147–170; BP diastolic 77–108
[~2021-06-07 05:48] MED LIST changes: +AMIT25TA9 PO; +AMLO-251 PO; +ATOR40TA70 PO; +DAPA10TA PO; +IBUP-2185 PO; +LISI10TA25 PO; +METF-478 PO; +OMEP20TA7 PO; +RIVA20TA PO
--- NOTE | 2021-06-07 06:27 | ED Chest Pain ---
General Chief Complaint: Chest Pain Stated Complaint: LUNG PAIN,CHEST PAIN WHEN COUGHS Source: patient Exam Limitations: no limitations History of Present Illness Date Seen by Provider: Jun 07, 2021 Time Seen by Provider: 06:03 Initial Comments Patient presents the ER by private conveyance with his significant other and chief complaint of 48 hours of left-sided chest pain worse with deep inspiration and cough. He has had some diarrhea but no nausea or vomiting. He denies any fever. He went to the clinic urgent care walk up yesterday and was given a negative Covid swab and told it was probably allergies. He has not taken anything for it. He says he has a history of a heart attack and is known to Dr. Richardson. He was set up for a stress test but has not done this yet. He has had no heart cath or stents. He does have significant familial history for early onset coronary disease as well as his own personal history of hypertension, hyperlipidemia, diabetes and smokes cigarettes. He is on Xarelto with a history of pulmonary embolism. Last hemoglobin A1c is 11. He takes Metformin but no insulin. Allergies and Home Medications Allergies Coded Allergies: aspirin (Verified Allergy, Mild, 06/07/21) cephalexin (Verified Allergy, Mild, 06/07/21) hydroxyzine (Verified Allergy, Mild, 06/07/21) influenza virus vaccine qs [id number] (36 mos, up) (Verified Allergy, Unknown, 06/07/21) nortriptyline (Verified Allergy, Unknown, 06/07/21) sulfamethoxazole (Verified Allergy, Unknown, 06/07/21) trimethoprim (Verified Allergy, Unknown, 06/07/21) Home Medications Amitriptyline HCl 25 Mg Tablet, 25 MG PO HS, (Reported) LAST FILLED 02-05-2021 #90/90 DAY SUPPLY Last Action: Reviewed Cyclobenzaprine HCl 10 Mg Tablet, 10 MG PO HS PRN for MUSCLE CRAMPS, (Reported) Last Action: Reviewed Fluticasone Propionate 9.9 Ml [place].susp, 1 SPRAY [place]SEACH DAILY PRN for CONGESTION, (Reported) Last Action: Reviewed Ibuprofen 200 Mg Capsule, 400-600 MG PO Q8H PRN for PAIN-MILD (1-4), (Reported) Last Action: Reviewed Lisinopril 10 Mg Tablet, 10 MG PO HS, (Reported) LAST FILLED 02-05-2021 #90/90 DAY SUPPLY Last Action: Reviewed Metformin HCl 500 Mg Tab.er.24, 500 MG PO BID, (Reported) Last Action: Reviewed Omeprazole 20 Mg Tablet.dr, 20 MG PO DAILY, (Reported) Last Action: Reviewed Rivaroxaban 20 Mg Tablet, 20 MG PO HS, (Reported) Last Action: Reviewed Patient Home Medication List Home Medication List Reviewed: Yes Review of Systems Review of Systems Constitutional: No chills, No diaphoresis EENTM: No Blurred Vision, No Double Vision Respiratory: Denies Cough, Denies Shortness of Air Cardiovascular: See HPI, Chest Pain; Denies Edema Gastrointestinal: Denies Constipated, Denies Diarrhea, Denies Nausea, Denies Poor Fluid Intake, Denies Vomiting Genitourinary: Denies Discharge, Denies Drainage Musculoskeletal: No back pain, No joint pain Skin: No pruritus, No rash Psychiatric/Neurological: Denies Headache, Denies Numbness All Other Systems Reviewed Negative Unless Noted: Yes Past Psimdyh-Zxywnb-Aualss Hx Patient Social History Tobacco Use?: Yes Smoking Status: Current Everyday Smoker Use of E-Cig and/or Vaping dev: No Substance use?: No Alcohol Use?: No Seasonal Allergies Seasonal Allergies: No Past Medical History Surgeries: Yes Adenoidectomy, Appendectomy, Bladder Surgery, Gallbladder, Orthopedic, Tonsillectomy Respiratory: Yes Sleep Apnea Cardiac: Yes Coronary Artery Disease, Heart Attack, High Cholesterol, Hypertension Neurological: Yes Neuropathy Genitourinary: No Gastrointestinal: No Musculoskeletal: No Endocrine: Yes Diabetes, Non-Insulin dep HEENT: No Cancer: No Psychosocial: No Integumentary: No Family Medical History Heart Disease, Diabetes, Hypertension, Renal Disease Physical Exam Vital Signs Vital Signs - First Documented 06/07/21 06:00 Temp 36.0 Pulse 66 Resp 14 B/P (MAP) 159/108 (125) Pulse Ox 97 O2 Delivery Room Air Capillary Refill : Height, Weight, BMI Height: 5'9" Weight: 260lbs. oz. 117.585265eu; 37.61 BMI Method:Stated General Appearance: No Apparent Distress, WD/WN HEENT: PERRL/EOMI, Pharynx Normal, Moist Mucous Membranes Neck: Full Range of Motion, Normal Inspection, Non Tender Respiratory: Lungs Clear, Normal Breath Sounds, No Accessory Muscle Use, No Respiratory Distress Cardiovascular: Regular Rate, Rhythm, No Edema, Normal Peripheral Pulses Gastrointestinal: Normal Bowel Sounds, Non Tender, Soft Extremity: Normal Capillary Refill, Normal Inspection, No Pedal Edema Neurologic/Psychiatric: Alert, Oriented x3 Skin: Normal Color, Warm/Dry Progress/Results/Core Measures Results/Orders Lab Results Laboratory Tests Test 06/07/21 06:17 Range/Units White Blood Count 8.0 4.3-11.0 10^3/uL Red Blood Count 5.67 H 4.30-5.52 10^6/uL Hemoglobin 15.7 13.3-17.7 g/dL Hematocrit 48 40-54 % Mean Corpuscular Volume 85 80-99 fL Mean Corpuscular Hemoglobin 28 25-34 pg Mean Corpuscular Hemoglobin Concent 33 32-36 g/dL Red Cell Distribution Width 14.4 10.0-14.5 % Platelet Count 282 130-400 10^3/uL Mean Platelet Volume 10.0 9.0-12.2 fL Immature Granulocyte % (Auto) 0 % Neutrophils (%) (Auto) 52 42-75 % Lymphocytes (%) (Auto) 32 12-44 % Monocytes (%) (Auto) 12 0-12 % Eosinophils (%) (Auto) 3 0-10 % Basophils (%) (Auto) 1 0-10 % Neutrophils # (Auto) 4.1 1.8-7.8 10^3/uL Lymphocytes # (Auto) 2.6 1.0-4.0 10^3/uL Monocytes # (Auto) 1.0 0.0-1.0 10^3/uL Eosinophils # (Auto) 0.3 0.0-0.3 10^3/uL Basophils # (Auto) 0.1 0.0-0.1 10^3/uL Immature Granulocyte # (Auto) 0.0 0.0-0.1 10^3/uL Prothrombin Time 13.0 12.2-14.7 SEC INR Comment 0.9 0.8-1.4 Activated Partial Thromboplast Time 28 24-35 SEC D-Dimer 0.56 H 0.00-0.49 UG/ML Sodium Level 139 135-145 MMOL/L Potassium Level 3.9 3.6-5.0 MMOL/L Chloride Level 105 98-107 MMOL/L Carbon Dioxide Level 23 21-32 MMOL/L Anion Gap 11 5-14 MMOL/L Blood Urea Nitrogen 10 7-18 MG/DL Creatinine 0.79 0.60-1.30 MG/DL Estimat Glomerular Filtration Rate 105 BUN/Creatinine Ratio 13 Glucose Level 135 H 70-105 MG/DL Calcium Level 8.8 8.5-10.1 MG/DL Corrected Calcium 8.8 8.5-10.1 MG/DL Magnesium Level 2.2 1.6-2.4 MG/DL Total Bilirubin 0.7 0.1-1.0 MG/DL Aspartate Amino Transf (AST/SGOT) 15 5-34 U/L Alanine Aminotransferase (ALT/SGPT) 17 0-55 U/L Alkaline Phosphatase 71 40-136 U/L Myoglobin 52.3 10.0-92.0 NG/ML Troponin I < 0.028 <0.028 NG/ML B-Type Natriuretic Peptide < 10.0 <100.0 PG/ML Total Protein 7.7 6.4-8.2 GM/DL Albumin 4.0 3.2-4.5 GM/DL Lipase 24 8-78 U/L Influenza Type A (RT-PCR) Not Detected Not Detecte Influenza Type B (RT-PCR) Not Detected Not Detecte SARS-CoV-2 RNA (RT-PCR) Not Detected Not Detecte My Orders Orders - JENNIFER GARCIA Cbc With Automated Diff (06/07/21 06:20) Magnesium (06/07/21 06:20) Chest 1 View, Ap/Pa Only (06/07/21 06:20) Ekg Tracing (06/07/21 06:20) Comprehensive Metabolic Panel (06/07/21 06:20) Myoglobin Serum (06/07/21 06:20) Protime With Inr (06/07/21 06:20) Partial Thromboplastin Time (06/07/21 06:20) O2 (06/07/21 06:20) Monitor-Rhythm Ecg Trace Only (06/07/21 06:20) Lipid Panel (06/08/21 05:00) Ed Iv/Invasive Line Start (06/07/21 06:20) Lipase (06/07/21 06:20) BNP (06/07/21 06:20) Fibrin Degradation Products (06/07/21 06:20) Troponin I (06/07/21 06:20) Nitroglycerin 0.4 Mg Btl 25's (Nitrostat (06/07/21 06:30) Covid 19 Inhouse Test (06/07/21 06:21) Influenza A And B By Pcr (06/07/21 06:21) Medications Given in ED Current Medications Medications Dose Ordered Sig/Yoel Route Start Time Stop Time Status Last Admin Dose Admin Nitroglycerin 0.4 mg UD PRN SL 06/07/21 06:30 06/07/21 09:29 DC 06/07/21 06:34 0.4 MG Vital Signs/I&O 06/07/21 06/07/21 06/07/21 06:00 06:01 06:01 Temp 36.0 Pulse 66 Resp 14 B/P (MAP) 159/108 (125) Pulse Ox 97 97 O2 Delivery Room Air Room Air Room Air Progress Progress Note #1: Time: 06:27 Progress Note Patient states he has an allergy to aspirin so we will just give him some nitroglycerin and see how this changes his pain. His last visit was reviewed which she was observed and had 2 - troponins after the initial negative. His initial EKG does not show any ST changes. He does have significant risk factors. Progress Note #2: Time: 07:00 Progress Note After 2 doses of nitroglycerin the pain has significantly improved. Patient's blood pressure has improved down to 135-140 systolic over 100. Progress Note #3: Time: 07:[address] Campos by to see the patient. He is doing to see if a nuclear stress test could be set up as an observation today. If not then he will set it up in the clinic. Initial ECG Impression Date: Jun 07, 2021 Initial ECG Impression Time: 06:08 Initial ECG Rate: 65 Initial ECG Rhythm: Normal Sinus Initial ECG Intervals: Normal Initial ECG Impression: Normal Initial ECG Comparisson: Unchanged Comment Normal sinus rhythm without clinically relevant ST changes. Diagnostic Imaging Diagonstic Imaging: Xray Plain Films/CT/US/NM/MRI: chest Comments NAME: TAVO ORNELAS Marisela [place] REC#: [id number] PT STATUS: REG ER : 1975 PHYSICIAN: JENNIFER GARCIA MD ADMIT DATE: 06/07/21/ER Draft Date of Exam:06/07/21 CHEST 1 VIEW, AP/PA ONLY EXAMINATION: Chest 1 view HISTORY: Chest pain COMPARISON: 04/27/2021 FINDINGS: Stable mild enlargement of the cardiac silhouette with prominence of pulmonary vasculature. There are mild interstitial opacities within the lung bases. No pleural effusion or pneumothorax. The osseous structures are intact. IMPRESSION: 1. Borderline enlargement of the cardiac silhouette with prominence of the pulmonary vasculature. Mild interstitial opacities in lung bases which could represent pulmonary edema, atelectasis, or atypical infection in the appropriate clinical setting. Dictated on workstation # [id number] Dict: 06/07/21 0708 Trans: 06/07/21 0710 SHARON [id number] Interpreted by: TRELL TANNER DO Electronically signed by: Reviewed: Reviewed by Me Departure Communication (Admissions) Time/Spoke to Admitting Phy: 07:50 Discussed the case with Dr. Parry and he agrees to observe the patient with cardiac consultation Time/Spoke to Consulting Phy: 07:45 Dr. Richardson down to see the patient and agrees to take the patient on an observation with plans to stress test in the morning Impression Primary Impression: ACS (acute coronary syndrome) Disposition: ADMITTED INPATIENT Condition: Stable Admissions Decision to Admit Reason: Admit from ER (General) Decision to Admit/Date: Jun 07, 2021 Time/Decision to Admit Time: 07:30 Departure-Patient Inst. Referrals: GABY MARINA CRNA (PCP) Primary Care Physician RICHARD ALEXANDER APRN (Family) Primary Care Physician JENNIFER GARCIA Jun 07, 2021 06:27
[2021-06-07] MEDS: NITROGLYCERIN 0.4 MG SL TABS BTL 25'S SL PRN ×2 (06:28→06:34)
[2021-06-07 06:34] LABS: BASOPHILS # (AUTO) 0.1 10^3/uL (0.0-0.1); BASOPHILS % (AUTO) 1 % (0-10); EOSINOPHILS # (AUTO) 0.3 10^3/uL (0.0-0.3); EOSINOPHILS % (AUTO) 3 % (0-10); HEMATOCRIT 48 % (40-54); HEMOGLOBIN 15.7 g/dL (13.3-17.7); LYMPHOCYTES # (AUTO) 2.6 10^3/uL (1.0-4.0); LYMPHOCYTES % (AUTO) 32 % (12-44); MEAN CORPUSCULAR HEMOGLOBIN 28 pg (25-34); MEAN CORPUSCULAR HGB CONC 33 g/dL (32-36); MEAN CORPUSCULAR VOLUME 85 fL (80-99); MONOCYTES % (AUTO) 12 % (0-12); NEUTROPHILS # (AUTO) 4.1 10^3/uL (1.8-7.8); NEUTROPHILS % (AUTO) 52 % (42-75); PLATELET COUNT 282 10^3/uL (130-400)
[2021-06-07 06:52] LABS: INR 0.9 (0.8-1.4); POTASSIUM 3.9 MMOL/L (3.6-5.0)
[2021-06-07 06:53] LABS: CALCIUM 8.8 MG/DL (8.5-10.1)
[2021-06-07 06:54] LABS: TOTAL PROTEIN 7.7 GM/DL (6.4-8.2)
[2021-06-07 06:56] LABS: BILIRUBIN,TOTAL 0.7 MG/DL (0.1-1.0)
[2021-06-07 06:58] LABS: CREATININE SERUM 0.79 MG/DL (0.60-1.30)
[2021-06-07 07:00] LABS: MAGNESIUM 2.2 MG/DL (1.6-2.4)
--- NOTE | 2021-06-07 07:10 | Diagnostic Imaging Report ---
EXAMINATION: Chest 1 view HISTORY: Chest pain COMPARISON: 04/27/2021 FINDINGS: Stable mild enlargement of the cardiac silhouette with prominence of pulmonary vasculature. There are mild interstitial opacities within the lung bases. No pleural effusion or pneumothorax. The osseous structures are intact. IMPRESSION: 1. Borderline enlargement of the cardiac silhouette with prominence of the pulmonary vasculature. Mild interstitial opacities in lung bases which could represent pulmonary edema, atelectasis, or atypical infection in the appropriate clinical setting. Dictated by: Dictated on workstation # [id number]
[2021-06-07] MEDS ORDERED: hydrALAZINE (APESOLINE) 20 MG/ML VIAL IV PRN (09:15)
[2021-06-07] MEDS ORDERED: CATHETER FLUSH 10 ML SYR IV PRN (09:30)
[2021-06-07] MEDS ORDERED: ONDANSETRON 4 MG/2 ML (SDV) Z0FRAN IVP PRN (10:15)
[2021-06-07] MEDS ORDERED: morphine INJ 4 MG/ML 1 ML (VIAL/SYRINGE) IVP PRN (10:15)
[2021-06-07] MEDS ORDERED: NITROGLYCERIN 0.4 MG SL TABS BTL 25'S SL PRN (10:15)
[2021-06-07] MEDS: inSUlin ASPART (NovoLOG) 1 UNIT/0.01 ML (CHARGE PER UNIT) SC SCH ×3 (10:55→20:25)
--- NOTE | 2021-06-07 11:57 | Consultation-Cardiology ---
HPI-Cardiology Cardiology Consultation: Date of Consultation 06/07/2021 Date of Admission 06/06/2021 Attending Physician Casie Parry MD Admitting Physician Alethea Newby Crna Consulting Physician VERONICA MATHIS JR, MD HPI: Time Seen by a Provider: 11:52 Chief Complaint: Reason for consultation: Chest pain. At the pleasure of seeing Stanislaw in the medical/surgical unit today. I know him from a recent previous hospitalization. He has a history of hypertension, hyperlipidemia, type 2 diabetes mellitus, and previous cigarette smoking but no known history of coronary artery disease. After his last hospitalization, he quit smoking. Since that time he has been having a cough productive of some yellowish sputum. Sometimes when he coughs, this causes a discomfort in what he states is his lungs. He also has intermittent chest discomfort. This occurs with and without exertion. Sometimes the chest discomfort may last a few minutes up to 2 days. Resting seems to make this better. Nothing seems to make this worse. The chest discomfort is like a pressure in the center of his chest. He denies radiation. He denies paroxysmal nocturnal dyspnea, orthopnea or palpitations. He gets occasional lightheaded or dizzy spells if he turns too quickly or stands up too quickly. He has chronic, mild ankle edema. This morning he had ongoing chest discomfort and decided to come to the emergency room for further evaluation. The emergency room physician then requested a cardiology consultation. Certain portions of this document may have been dictated utilizing voice recognition technology. Inherent to this technology, typographical and grammatical errors may exist. As much as I am diligent to identify and correct these mistakes, some errors may remain in the document. Review of Systems-Cardiology Review of Systems Other comments Review of 10 organ systems is as per the history of present illness, otherwise negative. All Other Systems Reviewed Negative Unless Noted: Yes QCL-Fyadgj-Liujor Hx Patient Social History Smoking Status: Current Everyday Smoker 2nd Hand Smoke Exposure: Yes Have you traveled recently?: No Alcohol Use?: No Pt feels they are or have been: No Tobacco type used: Cigarettes Past Medical History PMH As described under Assessment. Family Medical History Family Medical History: The patient does not know of any family history of premature coronary artery disease. Allergies and Home Medications Allergies Coded Allergies: aspirin (Verified Allergy, Mild, 06/07/21) cephalexin (Verified Allergy, Mild, 06/07/21) hydroxyzine (Verified Allergy, Mild, 06/07/21) influenza virus vaccine qs [id number] (36 mos, up) (Verified Allergy, Unknown, 06/07/21) nortriptyline (Verified Allergy, Unknown, 06/07/21) sulfamethoxazole (Verified Allergy, Unknown, 06/07/21) trimethoprim (Verified Allergy, Unknown, 06/07/21) Home Medications Amitriptyline HCl 25 Mg Tablet, 25 MG PO HS, (Reported) Cyclobenzaprine HCl 10 Mg Tablet, 10 MG PO HS, (Reported) Ibuprofen 200 Mg Capsule, 400-600 MG PO Q8H PRN for PAIN-MILD (1-4), (Reported) Lisinopril 10 Mg Tablet, 10 MG PO HS, (Reported) Metformin HCl 500 Mg Tab.er.24, 1,000 MG PO BID, (Reported) TAKES 2 (500MG) TABS Omeprazole 20 Mg Tablet.dr, 20 MG PO BIDAC, (Reported) Rivaroxaban 20 Mg Tablet, 20 MG PO HS, (Reported) Patient Home Medication List Home Medication List Reviewed: Yes Exam Vital Signs Vital Signs Date Time Temp Pulse Resp B/P (MAP) Pulse Ox O2 Delivery O2 Flow Rate FiO2 06/07/21 11:39 Room Air 06/07/21 11:32 36.0 59 20 160/99 (119) 95 Physical Exam General: Alert. No acute distress. Well nourished and appears stated age. Eye: Extraocular movements are intact. Conjunctivae are clear. There are no xanthelasma. HENT: Normocephalic. Atraumatic. Carotid pulsations 2/2 without bruits. Neck: Jugular venous pressure does not appear elevated. No thyromegaly appreciated. Respiratory: Lungs are clear to auscultation. Respirations are non-labored. Breath sounds are equal. Symmetrical chest wall expansion. Cardiovascular: Normal rate. Regular rhythm. No murmur. No gallop. Point of maximal impulse is not appear displaced. Good pulses equal in all extremities. No edema. Gastrointestinal: Soft. Normal bowel sounds. Skin: Skin turgor is normal. There is no pallor. Musculoskeletal: No kyphosis or scoliosis appreciated. Neurologic: Alert and oriented to person, place, time. Cranial nerves 3-12 appear grossly intact. The patient has good motor tone strength in the upper and lower extremities bilaterally. Psychiatric: Cooperative. Appropriate mood & affect. Labs Laboratory Tests Test 06/07/21 06:17 06/07/21 10:48 Range/Units White Blood Count 8.0 4.3-11.0 10^3/uL Red Blood Count 5.67 H 4.30-5.52 10^6/uL Hemoglobin 15.7 13.3-17.7 g/dL Hematocrit 48 40-54 % Mean Corpuscular Volume 85 80-99 fL Mean Corpuscular Hemoglobin 28 25-34 pg Mean Corpuscular Hemoglobin Concent 33 32-36 g/dL Red Cell Distribution Width 14.4 10.0-14.5 % Platelet Count 282 130-400 10^3/uL Mean Platelet Volume 10.0 9.0-12.2 fL Immature Granulocyte % (Auto) 0 % Neutrophils (%) (Auto) 52 42-75 % Lymphocytes (%) (Auto) 32 12-44 % Monocytes (%) (Auto) 12 0-12 % Eosinophils (%) (Auto) 3 0-10 % Basophils (%) (Auto) 1 0-10 % Neutrophils # (Auto) 4.1 1.8-7.8 10^3/uL Lymphocytes # (Auto) 2.6 1.0-4.0 10^3/uL Monocytes # (Auto) 1.0 0.0-1.0 10^3/uL Eosinophils # (Auto) 0.3 0.0-0.3 10^3/uL Basophils # (Auto) 0.1 0.0-0.1 10^3/uL Immature Granulocyte # (Auto) 0.0 0.0-0.1 10^3/uL Prothrombin Time 13.0 12.2-14.7 SEC INR Comment 0.9 0.8-1.4 Activated Partial Thromboplast Time 28 24-35 SEC D-Dimer 0.56 H 0.00-0.49 UG/ML Sodium Level 139 135-145 MMOL/L Potassium Level 3.9 3.6-5.0 MMOL/L Chloride Level 105 98-107 MMOL/L Carbon Dioxide Level 23 21-32 MMOL/L Anion Gap 11 5-14 MMOL/L Blood Urea Nitrogen 10 7-18 MG/DL Creatinine 0.79 0.60-1.30 MG/DL Estimat Glomerular Filtration Rate 105 BUN/Creatinine Ratio 13 Glucose Level 135 H 70-105 MG/DL Calcium Level 8.8 8.5-10.1 MG/DL Corrected Calcium 8.8 8.5-10.1 MG/DL Magnesium Level 2.2 1.6-2.4 MG/DL Total Bilirubin 0.7 0.1-1.0 MG/DL Aspartate Amino Transf (AST/SGOT) 15 5-34 U/L Alanine Aminotransferase (ALT/SGPT) 17 0-55 U/L Alkaline Phosphatase 71 40-136 U/L Myoglobin 52.3 10.0-92.0 NG/ML Troponin I < 0.028 <0.028 NG/ML B-Type Natriuretic Peptide < 10.0 <100.0 PG/ML Total Protein 7.7 6.4-8.2 GM/DL Albumin 4.0 3.2-4.5 GM/DL Lipase 24 8-78 U/L Influenza Type A (RT-PCR) Not Detected Not Detecte Influenza Type B (RT-PCR) Not Detected Not Detecte SARS-CoV-2 RNA (RT-PCR) Not Detected Not Detecte Glucometer 176 H 70-110 MG/DL ECG Impression ECG Comment Sinus rhythm with left anterior hemiblock. Diagnosis/Problems Diagnosis/Problems (1) Chest pain Assessment & Plan: Exact etiology unclear. His first troponin level was negative. He does not have any ischemic changes on his electrocardiogram. However, he has multiple cardiac risk factors. As such, I recommend further evaluation with a nuclear stress test. Unfortunately, the patient had some tea this morning and as such, we cannot have him undergo a regadenoson stress test since the caffeine in the tea could counteract the regadenoson and this test could be inconclusive. As such, I recommend he be admitted to observation and we can perform a regadenoson nuclear stress test tomorrow. He just had an echocardiogram a few weeks ago during his previous hospitalization and is showed a normal ejection fraction. No aspirin due to allergy. I will start him on beta- truman. I will also maximize his dose of proton pump inhibitor. (2) Abnormal ECG Assessment & Plan: He has borderline abnormal ECG showing left anterior hemiblock. In light of his chest discomfort, we will plan on a stress test in the morning. (3) Essential hypertension Assessment & Plan: Blood pressures are intermittently elevated. I recommend resuming his lisinopril. I have also added low-dose beta-truman due to his ongoing chest discomfort. (4) Mixed hyperlipidemia Assessment & Plan: His LDL level is actually fairly good during his previous admission. He did have elevated triglycerides. He might benefit from omega-3 fatty acids. (5) Type 2 diabetes mellitus without complication Assessment & Plan: He needs to keep the diabetes under control to help prevent secondary complications from diabetes. (6) Gastroesophageal reflux disease Assessment & Plan: I suspect this may be causing the patient's chest discomfort. As above, I have maximized his dose of proton pump inhibitor. When he is discharged, I would recommend he be changed over to omeprazole 40 mg twice a day. It appears as though he was only taking omeprazole 20 mg once a day. (7) Obesity Assessment & Plan: He needs to work on weight loss. VERONICA MATHIS JR, MD Jun 07, 2021 11:57
[2021-06-07] MEDS ORDERED: PANTOPRAZOLE 40 MG (PROTONIX) TAB PO NR (12:00)
[2021-06-07] MEDS ORDERED: REGADENOSON 0.4 MG/5 ML SYR (LEXISCAN) IV ONE (12:00)
[2021-06-07] MEDS ORDERED: PANTOPRAZOLE 40 MG (PROTONIX) TAB PO ONE (12:15)
[2021-06-07] MEDS: CATHETER FLUSH 10 ML SYR IV SCH ×2 (14:42→22:35)
[2021-06-07] MEDS ORDERED: FLUT9.9S NSEACH (15:35)
[2021-06-07] MEDS ORDERED: diphenhydrAMINE 25 MG TAB (BENADRYL) PO PRN (16:45)
[2021-06-07] MEDS ORDERED: polyethylene glycoL POWDER 17 GM (MIRALAX) PACK PO PRN (16:45)
[2021-06-07] MEDS ORDERED: ANTACID SUSP 30 ML UDC (MYLANTA) PO PRN (16:45)
[2021-06-07] MEDS ORDERED: ONDANSETRON 4 MG/2 ML (SDV) Z0FRAN IV PRN (16:45)
[2021-06-07] MEDS ORDERED: BISACODYL 10 MG SUPP (DULCOLAX) PR PRN (16:45)
[2021-06-07] MEDS ORDERED: ACETAMINOPHEN 325 MG TABLET PO PRN (16:45)
[2021-06-07] MEDS ORDERED: MELATONIN 3 MG TABLET PO PRN (16:45)
[2021-06-07] MEDS ORDERED: ONDANSETRON 4 MG (ZOFRAN) ORAL DISSOLVE TAB PO PRN (16:45)
[2021-06-07] MEDS ORDERED: RIVAROXABAN 20 MG TABLET (XARELTO) PO SCH ×2 (18:00→21:00)
[2021-06-07] MEDS: PANTOPRAZOLE 40 MG (PROTONIX) TAB PO SCH (20:11)
[2021-06-07] MEDS: DOCUSATE SODIUM 100 MG (COLACE) CAP PO SCH ×2 (20:11→20:14)
[2021-06-07] MEDS: SENNOSIDES 8.6 MG (SENOKOT) TAB PO SCH ×2 (20:11→20:14)
[2021-06-07] MEDS ORDERED: PANTOPRAZOLE 40 MG (PROTONIX) TAB PO SCH (21:00)
[2021-06-07] MEDS ORDERED: AMITRIPTYLINE 25 MG (ELAVIL) TAB PO SCH (21:00)
[2021-06-07] MEDS ORDERED: lisINopril 10 MG (PRINIVIL) TABLET PO SCH (21:00)
[2021-06-07] MEDS ORDERED: lisINopril 40 MG (PRINIVIL) TABLET PO SCH (21:00)
--- NOTE | 2021-06-07 22:15 | History & Physical-Hospitalist ---
History of Present Illness HPI/Chief Complaint Stanislaw Zarate III is a 45 year old male with PMH HTN, T2DM, HLD, CAD, who presented with chest pain. He reports left sided chest pain. He does report some radiation to his left arm and shoulder. He reports worsening with deep inspiration and coughing. He denies shortness of breath. He denies nausea and vomiting. He denies diaphoresis. He is still smoking but reports that he has cut back significantly. He reports having acid reflux. Source: patient Exam Limitations: no limitations Date Seen 06/07/21 Time Seen by a Provider: 11:00 Attending Physician Allison Parry MD PCP Alethea Newby Crna Referring Physician Date of Admission Jun 07, 2021 at 08:00 Home Medications & Allergies Home Medications Reviewed patient Home Medication Reconciliation performed by pharmacy medication reconciliations remanufacturing technician and/or nursing. Patients Allergies have been reviewed. Allergies Allergies Coded Allergies aspirin (Verified Allergy, Mild, 06/07/21) cephalexin (Verified Allergy, Mild, 06/07/21) hydroxyzine (Verified Allergy, Mild, 06/07/21) influenza virus vaccine qs [id number] (36 mos, up) (Verified Allergy, Unknown, 06/07/21) nortriptyline (Verified Allergy, Unknown, 06/07/21) sulfamethoxazole (Verified Allergy, Unknown, 06/07/21) trimethoprim (Verified Allergy, Unknown, 06/07/21) Past Skmnhty-Knatpk-Jqyfnd Hx Patient Social History Tobacco Use?: Yes Tobacco type used: Cigarettes Smoking Status: Current Everyday Smoker Use of E-Cig and/or Vaping dev: No Substance use?: No Alcohol Use?: No Pt feels they are or have been: No Immunizations Up To Date Tetanus Booster (TDap): Less Than 5 Years Seasonal Allergies Seasonal Allergies: No Current Status Advance Directives: No Communicates: Verbally Primary Language: Scottish Preferred Spoken Language: Scottish Is interpretation needed?: No Implanted or Applied Medical D: None Past Medical History Surgeries: Adenoidectomy, Appendectomy, Bladder Surgery, Gallbladder, Orth opedic, Tonsillectomy Sleep Apnea Coronary Artery Disease, Heart Attack, High Cholesterol, Hypertension Neuropathy Diabetes, Non-Insulin dep Family Medical History Heart Disease, Diabetes, Hypertension, Renal Disease Review of Systems Constitutional: no symptoms reported EENTM: no symptoms reported Respiratory: no symptoms reported Cardiovascular: chest pain Gastrointestinal: no symptoms reported Genitourinary: no symptoms reported Musculoskeletal: no symptoms reported Skin: no symptoms reported Psychiatric/Neurological: No Symptoms Reported Physical Exam Physical Exam Vital Signs Vital Signs - First Documented 06/07/21 06/07/21 06:00 12:00 Temp 36.0 Pulse 66 Resp 14 B/P (MAP) 159/108 (125) Pulse Ox 97 O2 Delivery Room Air O2 Flow Rate 96.00 Capillary Refill : Less Than 3 Seconds Height, Weight, BMI Height: 5'9" Weight: 260lbs. oz. 117.100707zf; 37.48 BMI Method:Stated General Appearance: No Apparent Distress, Obese HEENT: PERRL/EOMI, Pharynx Normal Neck: Normal Inspection, Supple Respiratory: Lungs Clear, Normal Breath Sounds, No Respiratory Distress Cardiovascular: Regular Rate, Rhythm, No Edema, No Murmur Gastrointestinal: Normal Bowel Sounds, Non Tender, Soft Extremity: Normal Inspection, Non Tender, No Pedal Edema Neurologic/Psychiatric: Alert, Oriented x3, No Motor/Sensory Deficits, Normal Mood/Affect Skin: Normal Color, Warm/Dry Lymphatic: No Adenopathy Results Results/Procedures Labs Laboratory Tests 06/07/21 06:17 Patient resulted labs reviewed. Imaging: Reviewed Imaging Report Assessment/Plan Admission Diagnosis Chest pain Admission Status: Observation Assessment and Plan Chest pain Troponin remains normal Cardiology consulted, appreciate assistance Planning for stress test tomorrow HTN HLD History of DVT/PE Continue home meds T2DM Sliding scale insulin Check A1C DVT prophylaxis: already receiving therapeutic anticoagulation Diagnosis/Problems Diagnosis/Problems (1) Chest pain Status: Acute Clinical Quality Measures AMI/AHF: ASA po Prior to arrival: ALLISON Green MD Jun 07, 2021 22:15
[2021-06-08 04:00] VITALS: BP 127/77
[2021-06-08] MEDS: inSUlin ASPART (NovoLOG) 1 UNIT/0.01 ML (CHARGE PER UNIT) SC SCH ×3 (05:42→15:54)
[2021-06-08] MEDS: CATHETER FLUSH 10 ML SYR IV SCH ×2 (05:43→14:41)
[2021-06-08 05:56] LABS: BASOPHILS % (AUTO) 1 % (0-10); EOSINOPHILS # (AUTO) 0.3 10^3/uL (0.0-0.3); EOSINOPHILS % (AUTO) 4 % (0-10); HEMATOCRIT 47 % (40-54); HEMOGLOBIN 14.8 g/dL (13.3-17.7); LYMPHOCYTES # (AUTO) 2.6 10^3/uL (1.0-4.0); LYMPHOCYTES % (AUTO) 34 % (12-44); MEAN CORPUSCULAR HEMOGLOBIN 27 pg (25-34); MEAN CORPUSCULAR HGB CONC 32 g/dL (32-36); MEAN CORPUSCULAR VOLUME 86 fL (80-99); MEAN PLATELET VOLUME 10.3 fL (9.0-12.2); MONOCYTES # (AUTO) 0.8 10^3/uL (0.0-1.0); MONOCYTES % (AUTO) 10 % (0-12); NEUTROPHILS # (AUTO) 4.1 10^3/uL (1.8-7.8); NEUTROPHILS % (AUTO) 52 % (42-75); PLATELET COUNT 236 10^3/uL (130-400); WHITE BLOOD COUNT 7.9 10^3/uL (4.3-11.0)
[2021-06-08 06:05] LABS: POTASSIUM 4.1 MMOL/L (3.6-5.0)
[2021-06-08 06:07] LABS: CALCIUM 8.7 MG/DL (8.5-10.1)
[2021-06-08 06:11] LABS: CREATININE SERUM 0.77 MG/DL (0.60-1.30)
[2021-06-08] MEDS ORDERED: CATHETER FLUSH 10 ML SYR IV PRN (07:30)
[2021-06-08] MEDS ORDERED: REGADENOSON 0.4 MG/5 ML SYR (LEXISCAN) IV ONE (08:40)
[2021-06-08 08:51] VITALS: BP 127/83
--- NOTE | 2021-06-08 09:34 | Progress Note - Cardiology ---
Cardiology SOAP Progress Note Subjective: No c/o CP at this time No c/o SOB, palpitations Objective: I&O/Vital Signs 06/07/21 06/08/21 06/08/21 06/08/21 23:57 01:00 04:00 07:00 Temp 36.2 36.1 Pulse 66 58 72 67 Resp 20 20 B/P (MAP) 147/77 (100) 127/77 (94) Pulse Ox 95 96 O2 Delivery Room Air Room Air 06/08/21 08:51 Pulse 52 Resp 12 B/P (MAP) 127/83 (98) Pulse Ox 97 06/07/21 23:59 Intake Total 1600 ml Balance 1600 ml Weight (Pounds): 260 Weight (Calculated Kilograms): 117.614970 Constitutional: AAO x 3, well-developed, well-nourished Respiratory: No accessory muscle use, No respiratory distress; chest expansion is symmetric, chest is bilaterally symmetric, lungs clear to auscultation Cardiovascular: regular rate-rhythm; No JVD; S1 and S2 Gastrointestional: soft, round Extremities: no lower extremity edema bilateral Neurologic/Psychiatric: grossly intact (moves all extremities) Skin: No rash on exposed areas, No ulcerations on exposed areas Results/Procedures: Labs Laboratory Tests 06/07/21 10:48: Glucometer 176H 06/07/21 12:09: Glucometer 140H 06/07/21 12:19: Troponin I < 0.028 06/07/21 15:31: Glucometer 166H 06/07/21 17:57: Troponin I < 0.028 06/07/21 20:17: Glucometer 162H 06/08/21 05:15: White Blood Count 7.9, Red Blood Count 5.40, Hemoglobin 14.8, Hematocrit 47, Mean Corpuscular Volume 86, Mean Corpuscular Hemoglobin 27, Mean Corpuscular Hemoglobin Concent 32, Red Cell Distribution Width 14.2, Platelet Count 236, Mean Platelet Volume 10.3, Immature Granulocyte % (Auto) 0, Neutrophils (%) (Auto) 52, Lymphocytes (%) (Auto) 34, Monocytes (%) (Auto) 10, Eosinophils (%) ( Auto) 4, Basophils (%) (Auto) 1, Neutrophils # (Auto) 4.1, Lymphocytes # (Auto) 2.6, Monocytes # (Auto) 0.8, Eosinophils # (Auto) 0.3, Basophils # (Auto) 0.0, Immature Granulocyte # (Auto) 0.0 06/08/21 05:25: Sodium Level 137, Potassium Level 4.1, Chloride Level 106, Carbon Dioxide Level 21, Anion Gap 10, Blood Urea Nitrogen 11, Creatinine 0.77, Estimat Glomerular Filtration Rate 108, BUN/Creatinine Ratio 14, Glucose Level 132H, Calcium Level 8.7, Triglycerides Level 292H, Cholesterol Level 172, LDL Cholesterol Direct 113, VLDL Cholesterol 58H, HDL Cholesterol 38L 06/08/21 05:41: Glucometer 142H Laboratory Tests 06/07/21 06:17 06/08/21 05:15 06/08/21 05:25 A/P: Assessment: Chest pain of undetermined etiology, no evidence of ACS - Echocardiogram of 04-28-[address] Richardson showed LVEF 55-65%. Grade 1 diastolic dysfunction. 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 Richardson notes have been reviewed Chest pain without evidence of ACS - MPI today - results pending HTN - better controlled - continue current regimen Clinical Quality Measures AMI/AHF: ASA po Prior to arrival: JEREL Tellez Jun 08, 2021 09:34
[2021-06-08 09:54] VITALS: BP 150/97
[2021-06-08] MEDS: DOCUSATE SODIUM 100 MG (COLACE) CAP PO SCH (09:56)
[2021-06-08] MEDS: SENNOSIDES 8.6 MG (SENOKOT) TAB PO SCH (09:56)
[2021-06-08] MEDS: PANTOPRAZOLE 40 MG (PROTONIX) TAB PO SCH (09:56)
[2021-06-08 12:00] VITALS: BP 151/90
--- NOTE | 2021-06-08 14:15 | Progress Note - Hospitalist ---
Subjective HPI/CC On Admission Date Seen by Provider: Jun 08, 2021 Time Seen by Provider: 10:00 Stanislaw Zarate III is a 45 year old male with PMH HTN, T2DM, HLD, CAD, who presented with chest pain. He reports left sided chest pain. He does report some radiation to his left arm and shoulder. He reports worsening with deep inspiration and coughing. He denies shortness of breath. He denies nausea and vomiting. He denies diaphoresis. He is still smoking but reports that he has cut back significantly. He reports having acid reflux. Subjective/Events-last exam He is not having any more chest pain. He is not having shortness of breath. He has no other complaints or concerns. Objective Exam Vital Signs Vital Signs Date Time Temp Pulse Resp B/P (MAP) Pulse Ox O2 Delivery O2 Flow Rate FiO2 06/08/21 12:54 56 06/08/21 12:00 36.3 18 151/90 (110) 94 Room Air 06/08/21 08:00 96.00 Capillary Refill : Less Than 3 Seconds General Appearance: No Apparent Distress, Obese Respiratory: Lungs Clear, Normal Breath Sounds, No Respiratory Distress Cardiovascular: Regular Rate, Rhythm, No Edema, No Murmur Gastrointestinal: Normal Bowel Sounds, Non Tender, Soft Extremity: Normal Inspection, Non Tender, No Pedal Edema Neurologic/Psychiatric: Alert, Oriented x3, No Motor/Sensory Deficits, Normal Mood/Affect Skin: Normal Color, Warm/Dry Results/Procedures Lab Laboratory Tests 06/08/21 05:15 06/08/21 05:25 Patient resulted labs reviewed. Imaging: Reviewed Imaging Report Assessment/Plan Assessment and Plan Assess & Plan/Chief Complaint Chest pain Troponin remains normal Cardiology consulted, appreciate assistance Stress test today, awaiting results HTN HLD History of DVT/PE Continue home meds T2DM Sliding scale insulin A1C DVT prophylaxis: already receiving therapeutic anticoagulation Diagnosis/Problems Diagnosis/Problems (1) Chest pain Status: Acute Clinical Quality Measures AMI/AHF: ASA po Prior to arrival: ALLISON Green MD Jun 08, 2021 14:15
[2021-06-08 15:40] VITALS: BP 161/95
[2021-06-08 15:55] VITALS: BP 161/95
--- NOTE | 2021-06-08 16:12 | Progress Note - Cardiology ---
Cardiology SOAP Progress Note Subjective: No cp or palp or syncope or shortness of breath No weakness No n/v/d Objective: I&O/Vital Signs 06/08/21 06/08/21 06/08/21 06/08/21 07:00 08:00 08:51 09:54 Temp 36.4 Pulse 67 52 68 Resp 12 18 B/P (MAP) 127/83 (98) 150/97 (114) Pulse Ox 98 97 98 O2 Delivery Room Air Room Air O2 Flow Rate 96.00 06/08/21 06/08/21 06/08/21 06/08/21 12:00 12:54 15:40 15:55 Temp 36.3 36.2 36.2 Pulse 58 56 55 55 Resp 18 18 18 B/P (MAP) 151/90 (110) 161/95 (117) 161/95 Pulse Ox 94 96 96 O2 Delivery Room Air Room Air Room Air O2 Flow Rate 96.00 06/07/21 23:59 Intake Total 1600 ml Balance 1600 ml Weight (Pounds): 260 Weight (Calculated Kilograms): 117.827565 Constitutional: AAO x 3, well-developed, well-nourished Respiratory: No accessory muscle use, No respiratory distress; chest expansion is symmetric, chest is bilaterally symmetric, lungs clear to auscultation Cardiovascular: regular rate-rhythm; No JVD; S1 and S2 Gastrointestional: soft, round Extremities: no lower extremity edema bilateral Neurologic/Psychiatric: grossly intact (moves all extremities) Skin: No rash on exposed areas, No ulcerations on exposed areas Results/Procedures: Labs Laboratory Tests 06/07/21 17:57: Troponin I < 0.028 06/07/21 20:17: Glucometer 162H 06/08/21 05:15: White Blood Count 7.9, Red Blood Count 5.40, Hemoglobin 14.8, Hematocrit 47, Mean Corpuscular Volume 86, Mean Corpuscular Hemoglobin 27, Mean Corpuscular Hemoglobin Concent 32, Red Cell Distribution Width 14.2, Platelet Count 236, Mean Platelet Volume 10.3, Immature Granulocyte % (Auto) 0, Neutrophils (%) (Auto) 52, Lymphocytes (%) (Auto) 34, Monocytes (%) (Auto) 10, Eosinophils (%) (Auto) 4, Basophils (%) (Auto) 1, Neutrophils # (Auto) 4.1, Lymphocytes # (Auto) 2.6, Monocytes # (Auto) 0.8, Eosinophils # (Auto) 0.3, Basophils # (Auto) 0.0, Immature Granulocyte # (Auto) 0.0 06/08/21 05:25: Sodium Level 137, Potassium Level 4.1, Chloride Level 106, Carbon Dioxide Level 21, Anion Gap 10, Blood Urea Nitrogen 11, Creatinine 0.77, Estimat Glomerular Filtration Rate 108, BUN/Creatinine Ratio 14, Glucose Level 132H, Calcium Level 8.7, Triglycerides Level 292H, Cholesterol Level 172, LDL Cholesterol Direct 113, VLDL Cholesterol 58H, HDL Cholesterol 38L 06/08/21 05:41: Glucometer 142H 06/08/21 10:56: Glucometer 187H 06/08/21 15:39: Glucometer 118H Laboratory Tests 06/07/21 06:17 06/08/21 05:15 06/08/21 05:25 A/P: Assessment: Chest pain of undetermined etiology, no evidence of ACS - Echocardiogram of 04-28-[address] Richardson showed LVEF 55-65%. Grade 1 diastolic dysfunction. 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 Outpt f/u with Dr Richardson in 2 weeks Clinical Quality Measures AMI/AHF: ASA po Prior to arrival: MARY JO Reyes MD FACP FAC CCDS Jun 08, 2021 16:12
--- NOTE | 2021-06-08 16:17 | Discharge Summary ---
Discharge Summary Hospital Course Was the Problem List Reviewed?: Yes Problems/Dx: (1) Chest pain Status: Acute Hospital Course Date of Admission: Jun 07, 2021 at 08:00 Admission Diagnosis : Chest pain Family Physician/Provider: Fay Vang Aprn Date of Discharge: 06/08/21 Discharge Diagnosis: Chest pain Hospital Course: Stanislaw Zarate III is a 45-year-old male who was admitted with chest pain. He was evaluated by cardiology. His troponins remain normal. His EKG was unremarkable. He underwent a cardiac stress test which was negative. His chest pain resolved. He was discharged home in stable condition. He should follow-up with his primary care physician. Labs and Pending Lab Test: Laboratory Tests 06/07/21 17:57: Troponin I < 0.028 06/07/21 20:17: Glucometer 162H 06/08/21 05:15: White Blood Count 7.9, Red Blood Count 5.40, Hemoglobin 14.8, Hematocrit 47, Mean Corpuscular Volume 86, Mean Corpuscular Hemoglobin 27, Mean Corpuscular Hemoglobin Concent 32, Red Cell Distribution Width 14.2, Platelet Count 236, Mean Platelet Volume 10.3, Immature Granulocyte % (Auto) 0, Neutrophils (%) (Auto) 52, Lymphocytes (%) (Auto) 34, Monocytes (%) (Auto) 10, Eosinophils (%) (Auto) 4, Basophils (%) (Auto) 1, Neutrophils # (Auto) 4.1, Lymphocytes # (Auto) 2.6, Monocytes # (Auto) 0.8, Eosinophils # (Auto) 0.3, Basophils # (Auto) 0.0, Immature Granulocyte # (Auto) 0.0 06/08/21 05:25: Sodium Level 137, Potassium Level 4.1, Chloride Level 106, Carbon Dioxide Level 21, Anion Gap 10, Blood Urea Nitrogen 11, Creatinine 0.77, Estimat Glomerular Filtration Rate 108, BUN/Creatinine Ratio 14, Glucose Level 132H, Calcium Level 8.7, Triglycerides Level 292H, Cholesterol Level 172, LDL Cholesterol Direct 113, VLDL Cholesterol 58H, HDL Cholesterol 38L 06/08/21 05:41: Glucometer 142H 06/08/21 10:56: Glucometer 187H 06/08/21 15:39: Glucometer 118H Home Meds Active Reported Flonase Allergy Relief (Fluticasone Propionate) 9.9 Ml Paauilo.susp 1 Pa[place]ilo NSEACH DAILY PRN Ibuprofen 200 Mg Capsule 400-600 Mg PO Q8H PRN Omeprazole 20 Mg Tablet.dr 20 Mg PO DAILY Cyclobenzaprine HCl 10 Mg Tablet 10 Mg PO HS PRN Metformin HCl ER (Metformin HCl) 500 Mg Tab.er.24 500 Mg PO BID Lisinopril 10 Mg Tablet 10 Mg PO HS LAST FILLED 02-05-2021 #90/ DAY SUPPLY Amitriptyline HCl 25 Mg Tablet 25 Mg PO HS LAST FILLED 02-05-2021 #90/ DAY SUPPLY Xarelto (Rivaroxaban) 20 Mg Tablet 20 Mg PO HS Assessment/Pt Instructions Take medications as prescribed. Follow-up with your primary care physician. Return with worsening chest pain, shortness of breath, or if you feel like you are getting worse. Discharge Planning: <30 minutes discharge planning Discharge Instructions Discharge Diet: No Restrictions Activity as Tolerated: Yes Consultations Cardiology Discharge Physical Examination Vital Signs Vital Signs Date Time Temp Pulse Resp B/P (MAP) Pulse Ox O2 Delivery O2 Flow Rate FiO2 06/08/21 15:55 36.2 55 18 161/95 96 Room Air 96.00 Allergies: Coded Allergies: aspirin (Verified Allergy, Mild, 06/07/21) cephalexin (Verified Allergy, Mild, 06/07/21) hydroxyzine (Verified Allergy, Mild, 06/07/21) influenza virus vaccine qs 4813-4866 (36 mos, up) (Verified Allergy, Unknown, 06/07/21) nortriptyline (Verified Allergy, Unknown, 06/07/21) sulfamethoxazole (Verified Allergy, Unknown, 06/07/21) trimethoprim (Verified Allergy, Unknown, 06/07/21) Copy Copies To 1: [facility] [place] Date of Admission Jun 07, 2021 at 08:00 Date of Discharge Discharge Date: Jun 08, 2021 Discharge Time: 1630 Admission Diagnosis Chest pain Consults/Procedures Consulations Cardiology Procedures Stress test Discharge Diagnosis Chest pain (1) Chest pain Status: Acute Clinical Quality Measures AMI/AHF: ASA po Prior to arrival: ALLISON Green MD Jun 08, 2021 16:17
--- NOTE | 2021-06-08 17:24 | STRESS TEST ---
DATE OF SERVICE: 06/08/2021 RESTING AND POST REGADENOSON TECHNETIUM-99M TETROFOSMIN SPECT CT IMAGING ATTENDING PHYSICIAN: Dr. Parry. CLINICAL DIAGNOSIS: Chest discomfort. Baseline images were carried out after injection of 10.71 mCi of technetium-99m Tetrofosmin. This was followed by 0.4 mg Regadenoson and 32.2 mCi of technetium-99m Tetrofosmin for stress imaging. The electrocardiogram showed sinus rhythm at baseline. It did not change significantly with the regadenoson infusion. Review of images at rest and following stress does not indicate any significant perfusion defects consistent with myocardial ischemia or infarction. Gated images show normal global left ventricular systolic function with normal regional wall motion. Left ventricular ejection fraction is calculated to be 63%. Left ventricular end diastolic volume is 98 mL. TID is absent (1.06). CONCLUSIONS: 1. No evidence of any significant myocardial ischemia or infarction on this study. 2. Normal regional wall motion. 3. Normal global left ventricular systolic function with a calculated ejection fraction of 63%. Job ID: [id number] DocumentID: [id number] Dictated Date: 06/08/2021 15:01:48 Women Nurse Date: 06/08/2021 17:23:43 Dictated By: MARY JO HOLCOMB MD, MA, FACP, FACC, MTDD
== END 2021-06-08 16:04 | disposition home or self-care (01) ==
LOC: EDUNIT# 05:48 → ER 05:53 → 4TH 08:00 → UNDOADMOB 08:00 → 4TH 09:00 → UNDODISOB 06-08 16:10
PROVIDERS: ADMIT Internal Medicine; ATTEND Internal Medicine
DX: R07.9 Chest pain, unspecified (principal); I25.10 Atherosclerotic heart disease of native coronary artery without angina pectoris; I25.2 Old myocardial infarction; K21.9 Gastro-esophageal reflux disease without esophagitis; E78.00 Pure hypercholesterolemia, unspecified; E11.40 Type 2 diabetes mellitus with diabetic neuropathy, unspecified; E78.5 Hyperlipidemia, unspecified; I10 Essential (primary) hypertension; G47.30 Sleep apnea, unspecified; F17.210 Nicotine dependence, cigarettes, uncomplicated; Z79.82 Long term (current) use of aspirin; Z90.89 Acquired absence of other organs; Z79.899 Other long term (current) drug therapy; Z79.84 Long term (current) use of oral hypoglycemic drugs
CPT/HCPCS: 71045; 78452; 80048; 80053; 80061; 82947 ×2; 83036; 83690; 83735; 83874; 83880; 84484; 85025 ×2; 85379; 85610; 85730; 87636; 93005 ×2; 93017; 93041; 99284; A9502; G0378; 36415

== ENCOUNTER 2021-07-21 06:41 | Emergency (ER) | payer SELFPAY ==
[~2021-07-21] VITALS: Ht 175 cm; Wt 113.0 kg
[~2021-07-21 06:41] MED LIST changes: +FLUT9.9S NSEACH
--- OUTSIDE RECORDS SUMMARY | 2021-07-21 06:49 | XMS REPORT | Clinical Summary ---
Author Author [facility] Organization [facility] Address Unknown Phone Unavailable Care Team Providers Care Audio Visual Design Engineer Name Role Phone Laurita Hutchins MD PCP Source Comments Some departments are not documenting in the electronic medical record. If you d o not see the information that you expected, contact Release of Information in [facility] Health Information Management department at [phone] for further assistan ce in locating additional records.[facility] Allergies Not on File Medications Not on file Active Problems Not on file Social History Date Tobacco Use Types Packs/Day Years Used Never Assessed Sex Assigned at Date Recorded Not on file Last Filed Vital Signs Not on file Plan of Treatment Health Maintenance Due Date Last Done Comments DTAP/TDAP VACCINES (1 - 1991 Tdap) HEPATITIS C SCREENING 1991 PHYSICAL (COMPREHENSIVE) 1991 EXAM INFLUENZA VACCINE 08/17/2021 HIV SCREENING Completed 11/01/2010 Results Not on filefrom Last 3 Months
[2021-07-21 07:45] LABS: BILIRUBIN,URINE NEGATIVE (NEGATIVE); CLARITY,URINE CLEAR; COLOR,URINE YELLOW; GLUCOSE, URINE (UA) 2+ (NEGATIVE); KETONES,URINE NEGATIVE (NEGATIVE); LEUKOCYTE ESTERASE ,URINE NEGATIVE (NEGATIVE); NITRITE,URINE NEGATIVE (NEGATIVE); PROTEIN,URINE NEGATIVE (NEGATIVE)
[2021-07-21 07:50] LABS: BASOPHILS # (AUTO) 0.1 10^3/uL (0.0-0.1); BASOPHILS % (AUTO) 1 % (0-10); EOSINOPHILS # (AUTO) 0.3 10^3/uL (0.0-0.3); EOSINOPHILS % (AUTO) 3 % (0-10); HEMATOCRIT 47 % (40-54); LYMPHOCYTES # (AUTO) 2.3 10^3/uL (1.0-4.0); LYMPHOCYTES % (AUTO) 29 % (12-44); MEAN CORPUSCULAR HEMOGLOBIN 29 pg (25-34); MEAN CORPUSCULAR HGB CONC 34 g/dL (32-36); MEAN CORPUSCULAR VOLUME 85 fL (80-99); MEAN PLATELET VOLUME 10.1 fL (9.0-12.2); MONOCYTES # (AUTO) 0.8 10^3/uL (0.0-1.0); MONOCYTES % (AUTO) 9 % (0-12); NEUTROPHILS # (AUTO) 4.6 10^3/uL (1.8-7.8); NEUTROPHILS % (AUTO) 58 % (42-75); PLATELET COUNT 246 10^3/uL (130-400)
[2021-07-21 07:53] LABS: BACTERIA,URINE TRACE /HPF; RBC,URINE RARE /HPF; SQUAMOUS EPITHELIAL CELL,UR RARE /HPF; WBC,URINE 0-2 /HPF
[2021-07-21 07:53] LABS: POTASSIUM 4.5 MMOL/L (3.6-5.0)
[2021-07-21 07:55] LABS: CALCIUM 9.8 MG/DL (8.5-10.1)
[2021-07-21 07:56] LABS: TOTAL PROTEIN 7.7 GM/DL (6.4-8.2)
[2021-07-21 07:57] LABS: BILIRUBIN,TOTAL 0.3 MG/DL (0.1-1.0)
[2021-07-21 07:59] LABS: CREATININE SERUM 0.84 MG/DL (0.60-1.30)
[2021-07-21 08:07] LABS: INR 0.9 (0.8-1.4); PROTHROMBIN TIME PATIENT 12.5 SEC (12.2-14.7)
[2021-07-21] MEDS ORDERED: ONDANSETRON 4 MG/2 ML (SDV) Z0FRAN IVP ONE (09:30)
[2021-07-21] MEDS ORDERED: LIDOCAINE 2% VISCOUS 15 ML UDC PO ONE (09:30)
[2021-07-21] MEDS ORDERED: ANTACID SUSP 30 ML UDC (MYLANTA) PO ONE (09:30)
[2021-07-21] MEDS ORDERED: FAMOTIDINE 20MG/2ML IV (PEPCID) IVP ONE (09:30)
[2021-07-21] MEDS ORDERED: ONDA4TAB11 PO ×2 (10:05→10:09)
--- NOTE | 2021-07-21 10:05 | ED Abdominal Pain ---
General Chief Complaint: Abdominal/GI Problems Stated Complaint: RT SIDE CALF MUSCLE PAIN,ABD PAIN-BURNING PAIN Nursing Triage Note: Pt ambulatory to triage, c/o abd burning onset yesterday. Pt also c/o R leg/calf pain, hx of DVT, states he stopped his blood thinner approx 2 weeks ago. Source of Information: Patient Exam Limitations: No Limitations History of Present Illness Date Seen by Provider: Jul 21, 2021 Time Seen by Provider: 07:20 Initial Comments This 45-year-old gentleman presents to the emergency room with a couple of complaints. He has been experiencing abdominal pain and diarrhea for about 1 week. He has not had any nausea or vomiting. He reports about a week ago being tested for COVID-19 due to sinus symptoms which have since improved. He has a secondary complaint of right calf pain. He is concerned about DVT because he had a DVT in that leg previously and he stopped taking Xarelto about 2 weeks ago. He notes having some dark-colored and red-colored stools which he presumes to be due to the color of his foods. He denies any merly hematochezia. He does have history of EGD with some type of procedure, possibly dilatation. He also reports previously having a colonoscopy, cholecystectomy, and appendectomy. He reports the colonoscopy was unremarkable. The endoscopy studies were done at an outside facility years ago. He has not Covid vaccinated because he has an allergy to the influenza vaccine. When inquiring further about COVID-19 symptoms, he reports he had a cough last night and a headache yesterday. Allergies and Home Medications Allergies Coded Allergies: aspirin (Verified Allergy, Mild, 06/07/21) cephalexin (Verified Allergy, Mild, 06/07/21) hydroxyzine (Verified Allergy, Mild, 06/07/21) influenza virus vaccine qs [id number] (36 mos, up) (Verified Allergy, Unknown, 06/07/21) nortriptyline (Verified Allergy, Unknown, 06/07/21) sulfamethoxazole (Verified Allergy, Unknown, 06/07/21) trimethoprim (Verified Allergy, Unknown, 06/07/21) Patient Home Medication List Home Medication List Reviewed: Yes Amitriptyline HCl (Amitriptyline HCl) 25 Mg Tablet, 25 MG PO HS, (Reported) Entered as Reported by: CARLIE SHAW on 04/27/21 7329 Cyclobenzaprine HCl (Cyclobenzaprine HCl) 10 Mg Tablet, 10 MG PO HS PRN for MUSCLE CRAMPS, (Reported) Entered as Reported by: CARLIE SHAW on 04/27/21 1325 Fluticasone Propionate (Flonase Allergy Relief) 9.9 Ml [place].susp, 1 SPRAY NSEACH DAILY PRN for CONGESTION, (Reported) Entered as Reported by: CARLIE SHAW on 06/07/21 1535 Ibuprofen (Ibuprofen) 200 Mg Capsule, 400-600 MG PO Q8H PRN for PAIN-MILD (1-4), (Reported) Entered as Reported by: CARLIE SHAW on 04/27/21 1326 Lisinopril (Lisinopril) 10 Mg Tablet, 10 MG PO HS, (Reported) Entered as Reported by: CARLIE SHAW on 04/27/21 1325 Metformin HCl (Metformin HCl ER) 500 Mg Tab.er.24, 500 MG PO BID, (Reported) Entered as Reported by: CARLIE SHAW on 04/27/21 1325 Omeprazole (Omeprazole) 20 Mg Tablet.dr, 20 MG PO DAILY, (Reported) Entered as Reported by: CARLIE SHAW on 04/27/21 1325 Ondansetron (Ondansetron Odt) 4 Mg Tab.rapdis, 4 MG PO Q4H PRN for NAUSEA/VOMITING Prescribed by: KETTY OG on 07/21/21 1009 Rivaroxaban (Xarelto) 20 Mg Tablet, 20 MG PO HS, (Reported) Entered as Reported by: CARLIE SHAW on 04/27/21 1325 Review of Systems Review of Systems Constitutional: no symptoms reported EENTM: See HPI Respiratory: See HPI Cardiovascular: No Symptoms Reported Gastrointestinal: See HPI Genitourinary: No Symptoms Reported Musculoskeletal: no symptoms reported Skin: no symptoms reported Psychiatric/Neurological: No Symptoms Reported Endocrine: No Symptoms Reported Hematologic/Lymphatic: No Symptoms Reported Past Jcwfqal-Zluuvp-Mwckla Hx Patient Social History Tobacco Use?: Yes Tobacco type used: Cigarettes Smoking Status: Current Someday Smoker Use of E-Cig and/or Vaping dev: Yes Substance use?: No Alcohol Use?: No Pt feels they are or have been: No Seasonal Allergies Seasonal Allergies: No Past Medical History Surgeries: Yes Adenoidectomy, Appendectomy, Bladder Surgery, Gallbladder, Orthopedic, Tonsillectomy Respiratory: Yes Sleep Apnea, COPD Cardiac: Yes Coronary Artery Disease, Heart Attack (With reportedly no obstructive disease on heart cath, negative stress test 05/2021), High Cholesterol, Hypertension Neurological: Yes Neuropathy Genitourinary: No Gastrointestinal: Yes Gastroesophageal Reflux Musculoskeletal: No Endocrine: Yes Diabetes, Non-Insulin dep HEENT: No Cancer: No Psychosocial: No Integumentary: No Family Medical History Heart Disease, Diabetes, Hypertension, Renal Disease Physical Exam Vital Signs Vital Signs - First Documented 07/21/21 06:57 Temp 36.8 Pulse 76 Resp 18 B/P (MAP) 147/94 (111) Pulse Ox 96 O2 Delivery Room Air Capillary Refill : Less Than 3 Seconds Height/Weight/BMI Height: 5'9" Weight: 260lbs. oz. 117.426926xa; 36.00 BMI Method:Stated General Appearance: WD/WN, no apparent distress HEENT: normal ENT inspection Neck: normal inspection Respiratory: lungs clear, normal breath sounds Cardiovascular: regular rate, rhythm, no edema, no murmur Gastrointestinal: normal bowel sounds, soft, tenderness (Generalized and migratory TTP) Rectal: normal exam, normal rectal tone, heme negative stool Extremities: normal inspection, no pedal edema, calf tenderness (Mild on the right) Neurologic/Psychiatric: mid level provider II-XII nml as tested, no motor/sensory deficits, alert, normal mood/affect, oriented x 3 Skin: normal color, warm/dry Progress/Results/Core Measures Results/Orders Lab Results Laboratory Tests Test 07/21/21 07:40 07/21/21 07:41 07/21/21 08:45 Range/Units White Blood Count 8.0 4.3-11.0 10^3/uL Red Blood Count 5.56 H 4.30-5.52 10^6/uL Hemoglobin 16.0 13.3-17.7 g/dL Hematocrit 47 40-54 % Mean Corpuscular Volume 85 80-99 fL Mean Corpuscular Hemoglobin 29 25-34 pg Mean Corpuscular Hemoglobin Concent 34 32-36 g/dL Red Cell Distribution Width 12.9 10.0-14.5 % Platelet Count 246 130-400 10^3/uL Mean Platelet Volume 10.1 9.0-12.2 fL Immature Granulocyte % (Auto) 1 % Neutrophils (%) (Auto) 58 42-75 % Lymphocytes (%) (Auto) 29 12-44 % Monocytes (%) (Auto) 9 0-12 % Eosinophils (%) (Auto) 3 0-10 % Basophils (%) (Auto) 1 0-10 % Neutrophils # (Auto) 4.6 1.8-7.8 10^3/uL Lymphocytes # (Auto) 2.3 1.0-4.0 10^3/uL Monocytes # (Auto) 0.8 0.0-1.0 10^3/uL Eosinophils # (Auto) 0.3 0.0-0.3 10^3/uL Basophils # (Auto) 0.1 0.0-0.1 10^3/uL Immature Granulocyte # (Auto) 0.0 0.0-0.1 10^3/uL Prothrombin Time 12.5 12.2-14.7 SEC INR Comment 0.9 0.8-1.4 Activated Partial Thromboplast Time 24 24-35 SEC D-Dimer 0.42 0.00-0.49 UG/ML Sodium Level 134 L 135-145 MMOL/L Potassium Level 4.5 3.6-5.0 MMOL/L Chloride Level 101 98-107 MMOL/L Carbon Dioxide Level 20 L 21-32 MMOL/L Anion Gap 13 5-14 MMOL/L Blood Urea Nitrogen 16 7-18 MG/DL Creatinine 0.84 0.60-1.30 MG/DL Estimat Glomerular Filtration Rate 98 BUN/Creatinine Ratio 19 Glucose Level 303 H 70-105 MG/DL Calcium Level 9.8 8.5-10.1 MG/DL Corrected Calcium 9.8 8.5-10.1 MG/DL Total Bilirubin 0.3 0.1-1.0 MG/DL Aspartate Amino Transf (AST/SGOT) 15 5-34 U/L Alanine Aminotransferase (ALT/SGPT) 20 0-55 U/L Alkaline Phosphatase 109 40-136 U/L C-Reactive Protein High Sensitivity 0.19 0.00-0.50 MG/DL Total Protein 7.7 6.4-8.2 GM/DL Albumin 4.0 3.2-4.5 GM/DL Lipase 52 8-78 U/L Urine Color YELLOW Urine Clarity CLEAR Urine pH 6.0 5-9 Urine Specific [place]onda >=1.030 1.016-1.022 Urine Protein NEGATIVE NEGATIVE Urine Glucose (UA) 2+ H NEGATIVE Urine Ketones NEGATIVE NEGATIVE Urine Nitrite NEGATIVE NEGATIVE Urine Bilirubin NEGATIVE NEGATIVE Urine Urobilinogen 0.2 < = 1.0 MG/DL Urine Leukocyte Esterase NEGATIVE NEGATIVE Urine RBC (Auto) NEGATIVE NEGATIVE Urine RBC RARE /HPF Urine WBC 0-2 /HPF Urine Squamous Epithelial Cells RARE /HPF Urine Crystals NONE /LPF Urine Bacteria TRACE /HPF Urine Casts NONE /LPF Urine Mucus NEGATIVE /LPF Urine Culture Indicated NO Influenza Type A (RT-PCR) Not Detected Not Detecte Influenza Type B (RT-PCR) Not Detected Not Detecte SARS-CoV-2 RNA (RT-PCR) Not Detected Not Detecte My Orders Orders - KETTY HART MD Cbc With Automated Diff (07/21/21 07:30) Comprehensive Metabolic Panel (07/21/21 07:30) Hs C Reactive Protein (07/21/21 07:30) Fibrin Degradation Products (07/21/21 07:30) Lipase (07/21/21 07:30) Ua Culture If Indicated (07/21/21 07:30) Ed Iv/Invasive Line Start (07/21/21 07:30) Protime With Inr (07/21/21 07:56) Partial Thromboplastin Time (07/21/21 07:56) Fecal Occult Bedside (07/21/21 07:56) Covid 19 Inhouse Test (07/21/21 08:41) Influenza A And B By Pcr (07/21/21 08:41) Famotidine Injection (Pepcid Injection) (07/21/21 09:30) Ondansetron Injection (Zofran Injectio (07/21/21 09:30) Lidocaine 2% Viscous 15 Ml (Xylocaine Vi (07/21/21 09:30) Antacid Suspension (Mylanta Suspension (07/21/21 09:30) Medications Given in ED Current Medications Medications Dose Ordered Sig/Yoel Route Start Time Stop Time Status Last Admin Dose Admin Al Hydrox/Mg Hydrox/Simethicone 30 ml ONCE ONCE PO 07/21/21 09:30 07/21/21 09:31 DC 07/21/21 09:37 30 ML Famotidine 20 mg ONCE ONCE IVP 07/21/21 09:30 07/21/21 09:31 DC 07/21/21 09:39 20 MG Lidocaine HCl 15 ml ONCE ONCE PO 07/21/21 09:30 07/21/21 09:31 DC 07/21/21 09:37 15 ML Ondansetron HCl 4 mg ONCE ONCE IVP 07/21/21 09:30 07/21/21 09:31 DC 07/21/21 09:38 4 MG Vital Signs/I&O 07/21/21 07/21/21 07/21/21 07/21/21 06:57 07:42 08:05 08:51 Temp 36.8 Pulse 76 74 75 62 Resp 18 18 18 20 B/P (MAP) 147/94 (111) 164/98 151/92 153/97 Pulse Ox 96 95 95 95 O2 Delivery Room Air Room Air Room Air Room Air 07/21/21 07/21/21 07/21/21 07/21/21 09:14 09:43 10:05 10:11 Pulse 57 73 65 70 Resp 18 18 18 B/P (MAP) 156/88 148/91 144/87 144/87 Pulse Ox 95 95 95 95 O2 Delivery Room Air Room Air Room Air Blood Pressure Mean: 110 Fecal Occult: Negative Progress Progress Note : Progress Note Work-up was relatively unremarkable. Specifically, D-dimer was negative suggesting no DVT. Digital rectal exam was performed with Hemoccult study done at bedside which was negative. GI cocktail significantly improved the abdominal discomfort suggesting gastritis, esophagitis, or duodenitis as contributors to the pain. COVID-19 screen was negative. We discussed restarting his anticoagulation and increasing his antiacid frequency to twice daily dosing. Departure Impression Primary Impression: Generalized abdominal pain Additional Impression: Diarrhea Qualified Codes: R19.7 - Diarrhea, unspecified Disposition: 01 HOME, SELF-CARE Condition: Improved Departure-Patient Inst. Decision time for Depature: 10:03 Referrals: [facility] (PCP/Family) Primary Care Physician Patient Instructions: Severe Abdominal Pain, Adult (DC), Gastritis (DC) Add. Discharge Instructions: Your screening test for blood clot was negative today. Your fecal blood test was also negative. It is reasonable to restart your blood thinning medication. Drink plenty of water to stay well-hydrated. Change your antiacid therapy to twice daily to get better coverage throughout the day. Use the Zofran (ondansetron) as prescribed for nausea and vomiting. Follow-up with your primary care provider within the next couple of weeks for a checkup. Avoid the following: Eating large meals, eating close to bedtime, caffeine, carbonation, chocolate, citrus fruits and juices, tomato products, spicy foods, mints, alcohol, tobacco, NSAID medications such as ibuprofen and naproxen, fatty or greasy foods, or anything else you know irritate your stomach. Call with questions or concerns. Return to the ER if you have worsening symptoms. All discharge instructions reviewed with patient and/or family. Voiced understanding. Scripts Ondansetron (Ondansetron Odt) 4 Mg Tab.rapdis 4 MG PO Q4H PRN for NAUSEA/VOMITING, #10 TAB Prov: KETTY HART MD 07/21/21 Copy Copies To 1: ELVIRA SALGUERO JOSHUA T MD Jul 21, 2021 10:05
[2021-07-21 10:11] VITALS: BP 144/87
== END 2021-07-21 10:11 | disposition home or self-care (01) ==
LOC: EDUNIT# 06:41 → ER 06:46
DX: R10.84 Generalized abdominal pain (principal); R19.7 Diarrhea, unspecified; I10 Essential (primary) hypertension; I25.2 Old myocardial infarction; J44.9 Chronic obstructive pulmonary disease, unspecified; G47.30 Sleep apnea, unspecified; E11.9 Type 2 diabetes mellitus without complications; K21.9 Gastro-esophageal reflux disease without esophagitis; F17.210 Nicotine dependence, cigarettes, uncomplicated; Z20.822 Contact with and (suspected) exposure to COVID-19; Z79.01 Long term (current) use of anticoagulants; Z79.84 Long term (current) use of oral hypoglycemic drugs; Z79.899 Other long term (current) drug therapy
CPT/HCPCS: 36415; 80053; 81000; 82274; 83690; 85025; 85379; 85610; 85730; 86141; 87636

== ENCOUNTER 2022-01-06 15:07 | Emergency (ER) | payer SELFPAY ==
[~2022-01-06] VITALS: Ht 175 cm; Wt 113.0 kg
[~2022-01-06 15:07] MED LIST changes: +CYCL10TA25 PO; +ONDA4TAB11 PO
[2022-01-06] MEDS ORDERED: meTOproloL SUCCINATE 50 MG (TOPROL XL) TAB PO SCH (15:30)
[2022-01-06] MEDS ORDERED: lisINopril 10 MG (PRINIVIL) TABLET PO ONE (15:30)
[2022-01-06] MEDS ORDERED: NITROGLYCERIN 0.4 MG SL TABS BTL 25'S SL PRN (15:30)
--- NOTE | 2022-01-06 15:34 | ED Chest Pain ---
General Chief Complaint: Cardiac/General Problems Stated Complaint: HIGH BP Nursing Triage Note: PT AMB TO RM 3 WITH COMPLAINT OF HTN. STATES HAS BEEN OUT OF BP MEDS AT HOME. Source: patient Exam Limitations: no limitations History of Present Illness Date Seen by Provider: Jan 06, 2022 Time Seen by Provider: 15:18 Initial Comments Patient presents to the ER by private conveyance with his significant other chief complaint is been having some high blood pressure the past couple days ever since he started having pain in his left jaw from a toothache. He has a history of heart disease and heart attack many years ago. Does not follow with a range scientist anymore. He is out of his blood pressure medicines lisinopril and is not sure what the other one is. [facility] but has not been able to get to them to get a refill. He has hypertension but no diabetes. No hyperlipidemia. Not on diuretics. No shortness of air. On the way over here he started getting a little numbness in his left arm and some pressure across the front of his chest. He does smoke cigarettes Allergies and Home Medications Allergies Coded Allergies: aspirin (Verified Allergy, Mild, 06/07/21) cephalexin (Verified Allergy, Mild, 06/07/21) hydroxyzine (Verified Allergy, Mild, 06/07/21) influenza virus vaccine qs 9050-2325 (36 mos, up) (Verified Allergy, Unknown, 06/07/21) nortriptyline (Verified Allergy, Unknown, 06/07/21) sulfamethoxazole (Verified Allergy, Unknown, 06/07/21) trimethoprim (Verified Allergy, Unknown, 06/07/21) Patient Home Medication List Home Medication List Reviewed: Yes Amitriptyline HCl (Amitriptyline HCl) 25 Mg Tablet, 25 MG PO HS, (Reported) Entered as Reported by: CARLIE SHAW on 04/27/21 1325 Cyclobenzaprine HCl (Cyclobenzaprine HCl) 10 Mg Tablet, 10 MG PO HS PRN for MUSCLE CRAMPS, (Reported) Entered as Reported by: CARLIE SHAW on 04/27/21 1325 Fluticasone Propionate (Flonase Allergy Relief) 9.9 Ml [place].susp, 1 SPRAY NSEACH DAILY PRN for CONGESTION, (Reported) Entered as Reported by: CARLIE SHAW on 06/07/21 1535 Ibuprofen (Ibuprofen) 200 Mg Capsule, 400-600 MG PO Q8H PRN for PAIN-MILD (1-4), (Reported) Entered as Reported by: CARLIE SHAW on 04/27/21 1326 Lisinopril (Lisinopril) 10 Mg Tablet, 10 MG PO HS, (Reported) Entered as Reported by: CARLIE SHAW on 04/27/21 1325 Metformin HCl (Metformin HCl ER) 500 Mg Tab.er.24, 500 MG PO BID, (Reported) Entered as Reported by: CARLIE SHAW on 04/27/21 1325 Omeprazole (Omeprazole) 20 Mg Tablet.dr, 20 MG PO DAILY, (Reported) Entered as Reported by: CARLIE SHAW on 04/27/21 1325 Ondansetron (Ondansetron Odt) 4 Mg Tab.rapdis, 4 MG PO Q4H PRN for NAUSEA/VOMITING Prescribed by: KETTY OG on 07/21/21 1009 Rivaroxaban (Xarelto) 20 Mg Tablet, 20 MG PO HS, (Reported) Entered as Reported by: CARLIE SHAW on 04/27/21 1325 Review of Systems Review of Systems Constitutional: No chills, No diaphoresis, No fever, No malaise EENTM: No Blurred Vision, No Double Vision Respiratory: Denies Cough, Denies Shortness of Air Cardiovascular: See HPI, Chest Pain (Chest pressure mild); Denies Lighthe adedness Gastrointestinal: Denies Constipated, Denies Diarrhea, Denies Nausea Genitourinary: Denies Discharge, Denies Drainage Musculoskeletal: No back pain, No joint pain All Other Systems Reviewed Negative Unless Noted: Yes Past Nnxcsmq-Neikti-Fbufxc Hx Patient Social History Tobacco Use?: No Use of E-Cig and/or Vaping dev: No Substance use?: No Alcohol Use?: No Pt feels they are or have been: No Immunizations Up To Date Influenza Vaccine Up-to-Date: No; Not Current Seasonal Allergies Seasonal Allergies: No Past Medical History Surgeries: Yes Adenoidectomy, Appendectomy, Bladder Surgery, Gallbladder, Orthopedic, Tonsillectomy Respiratory: Yes Sleep Apnea, COPD Cardiac: Yes Coronary Artery Disease, Heart Attack, High Cholesterol, Hypertension Neurological: Yes Neuropathy Genitourinary: No Gastrointestinal: Yes Gastroesophageal Reflux Musculoskeletal: No Endocrine: Yes Diabetes, Non-Insulin dep HEENT: No Cancer: No Psychosocial: No Integumentary: No Family Medical History Heart Disease, Diabetes, Hypertension, Renal Disease Physical Exam Vital Signs Vital Signs - First Documented 01/06/22 15:19 Temp 36.4 Pulse 90 Resp 16 B/P (MAP) 176/105 (128) Pulse Ox 96 O2 Delivery Room Air Capillary Refill : Less Than 3 Seconds Height, Weight, BMI Height: 5'9" Weight: 260lbs. oz. 117.025506uw; 36.00 BMI Method:Stated General Appearance: No Apparent Distress, WD/WN HEENT: PERRL/EOMI, Pharynx Normal, Moist Mucous Membranes Neck: Full Range of Motion, Normal Inspection Respiratory: Chest Non Tender, Lungs Clear, Normal Breath Sounds, No Accessory Muscle Use, No Respiratory Distress Cardiovascular: Regular Rate, Rhythm, No Edema, Normal Peripheral Pulses Gastrointestinal: Normal Bowel Sounds, No Organomegaly, Non Tender, Soft Extremity: Normal Capillary Refill, Normal Inspection, Non Tender, No Pedal Edema Neurologic/Psychiatric: Alert, Oriented x3, No Motor/Sensory Deficits Skin: Normal Color, Warm/Dry Progress/Results/Core Measures Results/Orders Lab Results Laboratory Tests Test 01/06/22 15:22 Range/Units White Blood Count 7.8 4.3-11.0 10^3/uL Red Blood Count 5.29 4.30-5.52 10^6/uL Hemoglobin 14.8 13.3-17.7 g/dL Hematocrit 44 40-54 % Mean Corpuscular Volume 84 80-99 fL Mean Corpuscular Hemoglobin 28 25-34 pg Mean Corpuscular Hemoglobin Concent 34 32-36 g/dL Red Cell Distribution Width 13.4 10.0-14.5 % Platelet Count 320 130-400 10^3/uL Mean Platelet Volume 9.8 9.0-12.2 fL Immature Granulocyte % (Auto) 0 % Neutrophils (%) (Auto) 56 42-75 % Lymphocytes (%) (Auto) 34 12-44 % Monocytes (%) (Auto) 6 0-12 % Eosinophils (%) (Auto) 3 0-10 % Basophils (%) (Auto) 1 0-10 % Neutrophils # (Auto) 4.3 1.8-7.8 X 10^3 Lymphocytes # (Auto) 2.7 1.0-4.0 X 10^3 Monocytes # (Auto) 0.5 0.0-1.0 X 10^3 Eosinophils # (Auto) 0.2 0.0-0.3 10^3/uL Basophils # (Auto) 0.1 0.0-0.1 10^3/uL Immature Granulocyte # (Auto) 0.0 0.0-0.1 10^3/uL Prothrombin Time 12.8 12.2-14.7 SEC INR Comment 0.9 0.8-1.4 Activated Partial Thromboplast Time 28 24-35 SEC Sodium Level 137 135-145 MMOL/L Potassium Level 4.1 3.6-5.0 MMOL/L Chloride Level 103 98-107 MMOL/L Carbon Dioxide Level 20 L 21-32 MMOL/L Anion Gap 14 5-14 MMOL/L Blood Urea Nitrogen 15 7-18 MG/DL Creatinine 1.00 0.60-1.30 MG/DL Estimat Glomerular Filtration Rate 93 BUN/Creatinine Ratio 15 Glucose Level 237 H 70-105 MG/DL Calcium Level 8.9 8.5-10.1 MG/DL Corrected Calcium 8.9 8.5-10.1 MG/DL Magnesium Level 2.0 1.6-2.4 MG/DL Total Bilirubin 0.4 0.1-1.0 MG/DL Aspartate Amino Transf (AST/SGOT) 11 5-34 U/L Alanine Aminotransferase (ALT/SGPT) 14 0-55 U/L Alkaline Phosphatase 82 40-136 U/L Myoglobin 23.8 10.0-92.0 NG/ML Troponin I < 0.028 <0.028 NG/ML B-Type Natriuretic Peptide < 10.0 <100.0 PG/ML Total Protein 7.9 6.4-8.2 GM/DL Albumin 4.0 3.2-4.5 GM/DL Lipase 50 8-78 U/L My Orders Orders - JENNIFER GARCIA Cbc With Automated Diff (01/06/22 15:28) Magnesium (01/06/22 15:28) Chest 1 View, Ap/Pa Only (01/06/22 15:28) Ekg Tracing (01/06/22 15:28) Comprehensive Metabolic Panel (01/06/22 15:28) Myoglobin Serum (01/06/22 15:28) Protime With Inr (01/06/22 15:28) Partial Thromboplastin Time (01/06/22 15:28) O2 (01/06/22 15:28) Monitor-Rhythm Ecg Trace Only (01/06/22 15:28) Lipid Panel (01/07/22 06:00) Ed Iv/Invasive Line Start (01/06/22 15:28) Bnp [place] (01/06/22 15:28) Troponin I [place] (01/06/22 15:28) Nitroglycerin 0.4 Mg Btl 25's (Nitrostat (01/06/22 15:30) Metoprolol Succinate (Xl) Tab (Toprol Xl (01/06/22 15:30) Lisinopril Tablet (Zestril Tablet) (01/06/22 15:30) Troponin I [place] (01/06/22 17:35) Lipase (01/06/22 15:37) Medications Given in ED Current Medications Medications Dose Ordered Sig/Yoel Route Start Time Stop Time Status Last Admin Dose Admin Lisinopril 10 mg ONCE ONCE PO 01/06/22 15:30 01/06/22 15:31 DC 01/06/22 15:40 10 MG Vital Signs/I&O 01/06/22 15:19 Temp 36.4 Pulse 90 Resp 16 B/P (MAP) 176/105 (128) Pulse Ox 96 O2 Delivery Room Air Blood Pressure Mean: 128 Progress Progress Note #1: Time: 15:33 Progress Note With a negative troponin he would have 3 points on the heart score he is not having any pain or pressure and now has only fleeting. We will give him little metoprolol and lisinopril. His initial blood pressure was 170s over 100. EKG unremarkable for ST changes. We will refill his lisinopril and encourage him to follow-up with his primary care doctor or through the [facility] for refills. Delta troponin if initial is negative at 1730. Progress Note #2: Time: 17:34 Progress Note The patient's troponin is negative. We will repeat another troponin and set him up for outpatient follow-up with cardiology. Initial ECG Impression Date: Jan 06, 2022 Initial ECG Impression Time: 15:27 Initial ECG Rate: 89 Initial ECG Rhythm: Normal Sinus Initial ECG Impression: Normal Initial ECG Comparisson: No Previous ECG Available Comment Normal sinus rhythm without clinically relevant ST changes Diagnostic Imaging Diagonstic Imaging: Xray Plain Films/CT/US/NM/MRI: chest Comments [facility]. [place], [place] NAME: TAVO ORNELAS III MED REC#: [id number] PT STATUS: REG ER : 1975 PHYSICIAN: JENNIFER GARCIA MD ADMIT DATE: 01/06/22/ER Draft Date of Exam:01/06/22 CHEST 1 VIEW, AP/PA ONLY INDICATION: Chest pain. EXAMINATION: Chest, 01/06/2022. COMPARISON: 06/07/2021. FINDINGS: The cardiomediastinal silhouette is unremarkable. The pulmonary vasculature is within normal limits. The lungs and pleural spaces are clear. IMPRESSION: No evidence of an acute cardiopulmonary process. Dictated on workstation # [id number] Dict: 01/06/22 1556 Trans: 01/06/[address] [facility] [id number] Interpreted by: MIRZA JESSICA MD Electronically signed by: Reviewed: Reviewed by Me Departure Impression Primary Impression: Hypertensive urgency Disposition: 01 HOME, SELF-CARE Condition: Stable Departure-Patient Inst. Decision time for Depature: 17:34 Referrals: NORMA MCCRAY MD NO,LOCAL PHYSICIAN (PCP) Primary Care Physician Patient Instructions: High Blood Pressure (DC), Chest Pain (DC) Add. 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 Follow-up with your primary care doctor to get your medications refilled. Call Dr. Mccray, cardiology and make a follow-up appointment this week to evaluate your episode of chest pain and high blood pressure. Promptly return to the ER for intractable chest pain, vomiting, shortness of air or other worrisome symptoms. All discharge instructions reviewed with patient and/or family. Voiced understanding. Scripts Lisinopril (Lisinopril) 10 Mg Tablet 10 MG PO DAILY for 14 Days, #14 TAB 0 Refills Prov: JENNIFER GARCIA 01/06/22 Work/School Note: Work Release Form Date Seen in the Emergency Department: Jan 06, 2022 Return to Work: Jan 14, 2022 Restrictions: No Restrictions Copy Copies To 1: NORMA MCCRAY MD, TITUS J Jan 06, 2022 15:34
[2022-01-06 15:58] LABS: BASOPHILS # (AUTO) 0.1 10^3/uL (0.0-0.1); BASOPHILS % (AUTO) 1 % (0-10); EOSINOPHILS # (AUTO) 0.2 10^3/uL (0.0-0.3); EOSINOPHILS % (AUTO) 3 % (0-10); HEMATOCRIT 44 % (40-54); HEMOGLOBIN 14.8 g/dL (13.3-17.7); LYMPHOCYTES # (AUTO) 2.7 X 10^3 (1.0-4.0); LYMPHOCYTES % (AUTO) 34 % (12-44); MEAN CORPUSCULAR HEMOGLOBIN 28 pg (25-34); MEAN CORPUSCULAR HGB CONC 34 g/dL (32-36); MEAN CORPUSCULAR VOLUME 84 fL (80-99); MEAN PLATELET VOLUME 9.8 fL (9.0-12.2); MONOCYTES # (AUTO) 0.5 X 10^3 (0.0-1.0); MONOCYTES % (AUTO) 6 % (0-12); NEUTROPHILS # (AUTO) 4.3 X 10^3 (1.8-7.8); NEUTROPHILS % (AUTO) 56 % (42-75); PLATELET COUNT 320 10^3/uL (130-400); WHITE BLOOD COUNT 7.8 10^3/uL (4.3-11.0)
--- NOTE | 2022-01-06 15:59 | Diagnostic Imaging Report ---
INDICATION: Chest pain. EXAMINATION: Chest, 01/06/2022. COMPARISON: 06/07/2021. FINDINGS: The cardiomediastinal silhouette is unremarkable. The pulmonary vasculature is within normal limits. The lungs and pleural spaces are clear. IMPRESSION: No evidence of an acute cardiopulmonary process. Dictated by: Dictated on workstation # [id number]
[2022-01-06 16:09] LABS: INR 0.9 (0.8-1.4); PROTHROMBIN TIME PATIENT 12.8 SEC (12.2-14.7)
[2022-01-06 16:13] LABS: POTASSIUM 4.1 MMOL/L (3.6-5.0)
[2022-01-06 16:15] LABS: CALCIUM 8.9 MG/DL (8.5-10.1)
[2022-01-06 16:16] LABS: TOTAL PROTEIN 7.9 GM/DL (6.4-8.2)
[2022-01-06 16:18] LABS: BILIRUBIN,TOTAL 0.4 MG/DL (0.1-1.0)
[2022-01-06 16:20] LABS: LIPASE 50 U/L (8-78)
[2022-01-06] MEDS ORDERED: LISI10TA25 PO (17:36)
[2022-01-06 18:04] VITALS: BP 150/109
== END 2022-01-06 18:04 | disposition home or self-care (01) ==
LOC: EDUNIT# 15:07 → ER 15:08
DX: I10 Essential (primary) hypertension (principal); I25.2 Old myocardial infarction; G47.30 Sleep apnea, unspecified; J44.9 Chronic obstructive pulmonary disease, unspecified; K21.9 Gastro-esophageal reflux disease without esophagitis; E11.9 Type 2 diabetes mellitus without complications; Z79.01 Long term (current) use of anticoagulants; Z79.84 Long term (current) use of oral hypoglycemic drugs; Z79.899 Other long term (current) drug therapy
CPT/HCPCS: 36415; 71045; 80053; 83690; 83735; 83874; 83880; 84484; 85025; 85610; 85730; 93005; 93041

== ENCOUNTER 2022-02-18 07:58 | Emergency (ER) | payer SELFPAY ==
[~2022-02-18] VITALS: Ht 175.3 cm; Wt 111.5 kg
[2022-02-18] MEDS ORDERED: NS IV 1000 ML 1,000 ML IV SCH (08:30)
[2022-02-18] MEDS ORDERED: ONDANSETRON 4 MG/2 ML (SDV) Z0FRAN IVP ONE (08:30)
[2022-02-18 08:31] LABS: BASOPHILS # (AUTO) 0.1 10^3/uL (0.0-0.1); BASOPHILS % (AUTO) 1 % (0-10); EOSINOPHILS # (AUTO) 0.3 10^3/uL (0.0-0.3); EOSINOPHILS % (AUTO) 4 % (0-10); HEMATOCRIT 45 % (40-54); HEMOGLOBIN 14.9 g/dL (13.3-17.7); LYMPHOCYTES # (AUTO) 2.2 10^3/uL (1.0-4.0); LYMPHOCYTES % (AUTO) 28 % (12-44); MEAN CORPUSCULAR HEMOGLOBIN 28 pg (25-34); MEAN CORPUSCULAR HGB CONC 33 g/dL (32-36); MEAN CORPUSCULAR VOLUME 85 fL (80-99); MEAN PLATELET VOLUME 9.8 fL (9.0-12.2); MONOCYTES # (AUTO) 0.8 10^3/uL (0.0-1.0); MONOCYTES % (AUTO) 10 % (0-12); NEUTROPHILS # (AUTO) 4.5 10^3/uL (1.8-7.8); NEUTROPHILS % (AUTO) 57 % (42-75); PLATELET COUNT 238 10^3/uL (130-400); WHITE BLOOD COUNT 7.8 10^3/uL (4.3-11.0)
--- NOTE | 2022-02-18 08:33 | ED Chest Pain ---
General Chief Complaint: Chest Pain Stated Complaint: CHEST PAIN Source: patient, family Exam Limitations: no limitations History of Present Illness Date Seen by Provider: Feb 18, 2022 Time Seen by Provider: 08:23 Initial Comments Patient is a 46-year-old male with a history of diabetes, hypertension and hypercholesterolemia who presents to the emergency department today with a chief complaint of right-sided chest discomfort at awakening around 5-5 30 this morn ing. Patient states that he was not short of breath, had no nausea, was not sweating. He has had intermittent episodes of chest pain occurring at rest and with heavy exertion while at work. 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 Patient reports last stress test 2 to 3 years ago in [place]. He is recently been out of one of his blood pressure medicines for a week and ran out of a second 1 about 2 days ago. He went to the clinic this morning to try and get some refills and get evaluated but when he mentioned chest pain they sent him to the emergency department. Patient states his pain currently is resolved. He does smoke. He complains of feeling increased hunger recently. He states his blood pressure is quite high for him today. He has an uncle who had a heart attack at age 53. He has a history of intermittent explosive disorder and states that when he talked to a therapist a couple years ago he was told there were no medications to help him quit smoking that would not interact with his other routine medications. He denies any complaints of infectious illness such as fevers, chills, upper respiratory tract symptoms. No problems with bowel or bladder. All other review of systems reviewed and negative except as stated Timing/Duration: 1-3 hours Severity/Quality: moderate, aching, sharp Location: other (right chest) Radiation: no radiation Activities at Onset: sleep Prior CP/Workup: other (prior chemical stress 2-3 years ago in [place]) ASA po EMERGENCY CREW SUPERVISOR: No NTG SL EMERGENCY CREW SUPERVISOR: No Associated Symptoms: dizziness Allergies and Home Medications Allergies Coded Allergies: aspirin (Verified Allergy, Mild, 06/07/21) cephalexin (Verified Allergy, Mild, 06/07/21) hydroxyzine (Verified Allergy, Mild, 06/07/21) influenza virus vaccine qs [id number] (36 mos, up) (Verified Allergy, Unk nown, 06/07/21) nortriptyline (Verified Allergy, Unknown, 06/07/21) sulfamethoxazole (Verified Allergy, Unknown, 06/07/21) trimethoprim (Verified Allergy, Unknown, 06/07/21) Patient Home Medication List Home Medication List Reviewed: Yes Amitriptyline HCl (Amitriptyline HCl) 25 Mg Tablet, 25 MG PO HS, (Reported) Entered as Reported by: CARLIE SHAW on 04/27/21 1325 Cyclobenzaprine HCl (Cyclobenzaprine HCl) 10 Mg Tablet, 10 MG PO HS PRN for MUSCLE CRAMPS, (Reported) Entered as Reported by: CARLIE SHAW on 04/27/21 1325 Dapagliflozin Propanediol (Farxiga) 10 Mg Tablet, 10 MG PO DAILY Prescribed by: ASHLEIGH FERRELL on 02/18/22 0930 Fluticasone Propionate (Flonase Allergy Relief) 9.9 Ml [place].susp, 1 SPRAY NSEACH DAILY PRN for CONGESTION, (Reported) Entered as Reported by: CARLIE SHAW on 06/07/21 1535 Ibuprofen (Ibuprofen) 200 Mg Capsule, 400-600 MG PO Q8H PRN for PAIN-MILD (1-4), (Reported) Entered as Reported by: CARLIE SHAW on 04/27/21 1326 Lisinopril (Lisinopril) 10 Mg Tablet, 10 MG PO HS, (Reported) Entered as Reported by: CARLIE SHAW on 04/27/21 1325 Lisinopril (Lisinopril) 10 Mg Tablet, 10 MG PO DAILY Prescribed by: JENNIFER GARCIA on 01/06/22 1736 Lisinopril (Lisinopril) 10 Mg Tablet, 10 MG PO DAILY Prescribed by: ASHLEIGH FERRELL on 02/18/22 0930 Metformin HCl (Metformin HCl ER) 500 Mg Tab.er.24, 500 MG PO BID, (Reported) Entered as Reported by: CARLIE SHAW on 04/27/21 1325 Omeprazole (Omeprazole) 20 Mg Tablet.dr, 20 MG PO DAILY, (Reported) Entered as Reported by: CARLIE SHAW on 04/27/21 1325 Ondansetron (Ondansetron Odt) 4 Mg Tab.rapdis, 4 MG PO Q4H PRN for NAUSEA/VOMITING Prescribed by: KETTY OG on 07/21/21 1009 Rivaroxaban (Xarelto) 20 Mg Tablet, 20 MG PO HS, (Reported) Entered as Reported by: CARLIE SHAW on 04/27/21 9355 Review of Systems Review of Systems Constitutional: see HPI EENTM: No Symptoms Reported Respiratory: No Symptoms Reported Cardiovascular: Chest Pain Gastrointestinal: Other (increased hunger) Genitourinary: No Symptoms Reported Musculoskeletal: no symptoms reported Skin: no symptoms reported Psychiatric/Neurological: Weakness (weak and dizzy) All Other Systems Reviewed Negative Unless Noted: Yes Past Lrzahuq-Bmtpoh-Lzjljz Hx Patient Social History Tobacco Use?: Yes Tobacco type used: Cigarettes Smoking Status: Current Everyday Smoker Use of E-Cig and/or Vaping dev: No Substance use?: No Alcohol Use?: No Pt feels they are or have been: No Seasonal Allergies Seasonal Allergies: No Past Medical History Surgeries: Yes Adenoidectomy, Appendectomy, Bladder Surgery, Gallbladder, Orthopedic, Tonsillectomy Respiratory: Yes Sleep Apnea, COPD Cardiac: Yes Coronary Artery Disease, Heart Attack, High Cholesterol, Hypertension Neurological: Yes Neuropathy Genitourinary: No Gastrointestinal: Yes Gastroesophageal Reflux Musculoskeletal: No Endocrine: Yes Diabetes, Non-Insulin dep HEENT: No Cancer: No Psychosocial: No Integumentary: No Family Medical History Heart Disease, Diabetes, Hypertension, Renal Disease Physical Exam Vital Signs Vital Signs - First Documented 02/18/22 08:08 Temp 36.6 Pulse 72 Resp 11 B/P (MAP) 159/107 (124) Pulse Ox 95 O2 Delivery Room Air Capillary Refill : Less Than 3 Seconds Height, Weight, BMI Height: 5'9" Weight: 260lbs. oz. 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 Norm as Tested Skin: Normal Color, Warm/Dry Progress/Results/Core Measures Results/Orders Lab Results Laboratory Tests Test 02/18/22 08:18 Range/Units White Blood Count 7.8 4.3-11.0 10^3/uL Red Blood Count 5.28 4.30-5.52 10^6/uL Hemoglobin 14.9 13.3-17.7 g/dL Hematocrit 45 40-54 % Mean Corpuscular Volume 85 80-99 fL Mean Corpuscular Hemoglobin 28 25-34 pg Mean Corpuscular Hemoglobin Concent 33 32-36 g/dL Red Cell Distribution Width 13.5 10.0-14.5 % Platelet Count 238 130-400 10^3/uL Mean Platelet Volume 9.8 9.0-12.2 fL Immature Granulocyte % (Auto) 0 % Neutrophils (%) (Auto) 57 42-75 % Lymphocytes (%) (Auto) 28 12-44 % Monocytes (%) (Auto) 10 0-12 % Eosinophils (%) (Auto) 4 0-10 % Basophils (%) (Auto) 1 0-10 % Neutrophils # (Auto) 4.5 1.8-7.8 10^3/uL Lymphocytes # (Auto) 2.2 1.0-4.0 10^3/uL Monocytes # (Auto) 0.8 0.0-1.0 10^3/uL Eosinophils # (Auto) 0.3 0.0-0.3 10^3/uL Basophils # (Auto) 0.1 0.0-0.1 10^3/uL Immature Granulocyte # (Auto) 0.0 0.0-0.1 10^3/uL Sodium Level 137 135-145 MMOL/L Potassium Level 4.4 3.6-5.0 MMOL/L Chloride Level 106 98-107 MMOL/L Carbon Dioxide Level 19 L 21-32 MMOL/L Anion Gap 12 5-14 MMOL/L Blood Urea Nitrogen 12 7-18 MG/DL Creatinine 0.80 0.60-1.30 MG/DL Estimat Glomerular Filtration Rate 109 BUN/Creatinine Ratio 15 Glucose Level 147 H 70-105 MG/DL Calcium Level 8.8 8.5-10.1 MG/DL Corrected Calcium 8.9 8.5-10.1 MG/DL Total Bilirubin 0.4 0.1-1.0 MG/DL Aspartate Amino Transf (AST/SGOT) 11 5-34 U/L Alanine Aminotransferase (ALT/SGPT) 16 0-55 U/L Alkaline Phosphatase 77 40-136 U/L Troponin I < 0.028 <0.028 NG/ML Total Protein 7.1 6.4-8.2 GM/DL Albumin 3.9 3.2-4.5 GM/DL My Orders Orders - ASHLEIGH FERRELL MD Ed Iv/Invasive Line Start (02/18/22 08:16) Cbc With Automated Diff (02/18/22 08:16) Comprehensive Metabolic Panel (02/18/22 08:16) Troponin I [place] (02/18/22 08:30) Chest 1 View, Ap/Pa Only (02/18/22 08:30) Ekg Tracing (02/18/22 08:30) Ed Iv/Invasive Line Start (02/18/22 08:30) Vital Signs/I&O 02/18/22 08:08 Temp 36.6 Pulse 72 Resp 11 B/P (MAP) 159/107 (124) Pulse Ox 95 O2 Delivery Room Air Progress Progress Note : Time: 08:20 Progress Note Patient seen and examined, 46-year-old with a chief complaint of being out of his medications, high blood pressure and chest pain upon awakening this morning. Patient presents approximately 3 hours after the onset of this episode of chest pain. No ongoing symptoms. EKG chest x-ray and labs reviewed and all within normal limits. Patient's diastolic is 101. He has an appointment scheduled to see his primary provider on Friday of this week for dedicated refills of his medications we will refill the patient's medications for the week to ensure that he gets to his appointment on Friday. I strongly think that the patient needs to follow-up with cardiology for further evaluation as he does state that he gets exertional chest pain and has risk factors to include diabetes, hypertension hypercholesterolemia and an uncle who had a heart attack at age 53. This particular episode of chest pain was brief and not associated with exertion. He had no concomitant diaphoresis shortness of breath or nausea. It did not radiate. I strongly encouraged him to quit smoking. I strongly encouraged him to keep his appointment, we will give him contact information for Dr. Richardson to follow-up with him in clinic as well. Patient verbalized understanding. All questions are sought and answered. Patient states that he has been previously referred to Dr. Campos will contact him this week. Initial ECG Impression Date: Feb 18, 2022 Initial ECG Impression Time: 08:08 Initial ECG Rate: 65 Initial ECG Rhythm: Normal Sinus Initial ECG Intervals MD 151 QRS [address] QTc [address]-T wave changes in the inferior leads, baseline wander in lead V2. No ectopy no ST segment elevation or depression. Diagnostic Imaging Diagonstic Imaging: Xray Plain Films/CT/US/NM/MRI: chest Comments [facility], [place] NAME: TAVO ORNELAS III [facility] REC#: [id number] PT STATUS: REG ER : 1975 PHYSICIAN: ASHLEIGH FERRELL MD ADMIT DATE: 02/18/22/ER Draft Date of Exam:02/18/22 CHEST 1 VIEW, AP/PA ONLY INDICATION: Chest pain and dizziness. Time of Exam: 8:35 AM Correlation is made with prior chest from 01/06/2022. Heart size is stable. There is central congestion but no overt failure. No effusion or pneumothorax is identified. IMPRESSION: Mild central congestion. Dictated on workstation # [id number] Dict: 02/18/22 0847 Trans: 02/18/22 0853 [facility] [id number] Interpreted by: CHRIS PARRA MD Electronically signed by: Counseling-Asymptomatic: 3-10 minutes Follow-up with PCP to: Discuss Further Options Departure Impression Primary Impression: Chest pain Qualified Codes: R07.9 - Chest pain, unspecified Additional Impression: Encounter for medication refill Disposition: 01 HOME, SELF-CARE Condition: Stable Departure-Patient Inst. Decision time for Depature: 09:28 Referrals: [facility] (PCP/Family) Primary Care Physician VERONICA RICHARDSON JR, MD Patient Instructions: Chest Pain, Quitting Smoking ED Add. Discharge Instructions: I have written prescriptions for your lisinopril and Farxiga. Please keep your appointment on Friday at [facility]. Please call Dr. Richardson office for a follow-up appointment. Come back to the emergency department for any new, concerning or emergent complaints. Scripts Lisinopril (Lisinopril) 10 Mg Tablet 10 MG PO DAILY, #7 TAB Prov: ASHLEIGH FERRELL MD 02/18/22 Dapagliflozin Propanediol (Farxiga) 10 Mg Tablet 10 MG PO DAILY, #7 TAB Prov: ASHLEIGH FERRELL MD 02/18/22 Copy Copies To 1: ELVIRA SALGUERO DO Copies To 2: VERONICA RICHARDSON JR, ASHLEIGH LEE MD Feb 18, 2022 08:33
[2022-02-18 08:39] LABS: ALBUMIN 3.9 GM/DL (3.2-4.5); POTASSIUM 4.4 MMOL/L (3.6-5.0)
[2022-02-18 08:40] LABS: CALCIUM 8.8 MG/DL (8.5-10.1)
[2022-02-18 08:41] LABS: TOTAL PROTEIN 7.1 GM/DL (6.4-8.2)
[2022-02-18 08:43] LABS: BILIRUBIN,TOTAL 0.4 MG/DL (0.1-1.0)
[2022-02-18 08:45] LABS: CREATININE SERUM 0.8 MG/DL (0.60-1.30)
--- NOTE | 2022-02-18 08:54 | Diagnostic Imaging Report ---
INDICATION: Chest pain and dizziness. Time of Exam: 8:35 AM Correlation is made with prior chest from 01/06/2022. Heart size is stable. There is central congestion but no overt failure. No effusion or pneumothorax is identified. IMPRESSION: Mild central congestion. Dictated by: Dictated on workstation # [id number]
[2022-02-18] MEDS ORDERED: DAPA10TA PO (09:30)
[2022-02-18] MEDS ORDERED: LISI10TA25 PO (09:30)
[2022-02-18 10:27] VITALS: BP 137/92
== END 2022-02-18 10:27 | disposition home or self-care (01) ==
LOC: EDUNIT# 07:58 → ER 08:00
DX: R07.9 Chest pain, unspecified (principal); F17.210 Nicotine dependence, cigarettes, uncomplicated; Z76.0 Encounter for issue of repeat prescription
CPT/HCPCS: 36415; 71045; 80053; 84484; 85025; 93005

== ENCOUNTER 2022-03-04 00:07 | Emergency (ER) | payer SELFPAY ==
[~2022-03-04] VITALS: Ht 175 cm; Wt 118.0 kg
[2022-03-04] MEDS ORDERED: NITROGLYCERIN 0.4 MG SL TABS BTL 25'S SL PRN (00:30)
--- NOTE | 2022-03-04 00:43 | ED Cardiac General ---
History of Present Illness General Chief Complaint: Respiratory Problems Stated Complaint: SOA,CHEST PAIN,HAS BLOOD CLOTS Nursing Triage Note: SOA/ LOWER LUNG PAIN X1 HR. HX BLOOD CLOTS IN RIGHT LEG. Source: patient History of Present Illness Date Seen by Provider: Mar 04, 2022 Time Seen by Provider: 00:15 Initial Comments PT ARRIVES VIA POV FROM HOME C/O CHEST PAIN AND SHORTNESS OF BREATH X 1 HOUR--BEGAN WHILE LAYING IN BED PAIN IS ALL DOWN CENTER OF CHEST TO EPIGASTRIC AREA NOTHING WORSENS OR IMPROVES SYMPTOMS--HAS NOT TAKEN ANYTHING FOR MARCELA NO SWEATS NO NAUSEA/VOMITING NO DIZZINESS OR SYNCOPE NO PALPITATIONS NO FEVER OR RECENT ILLNESS NO UNUSUAL ACTIVITY, NO LIFTING, EXERCISE, ETC. PT WAS DX WITH DVT IN LEFT LEG ON Friday02/28/22 AND STARTED ON XARELTO STATES HE HAD A BLOOD CLOT IN THIS LEG A FEW YEARS AGO AND WAS PRESCRIBED XARELTO, BUT HE QUIT TAKING IT AFTER A SHORT PERIOD OF TIME BEGAN HAVING PAIN IN HIS LEFT CALF ON FRIDAY AND WENT TO [facility] AND HAD ULTRASOUND AND LAB AND DX WITH BLOOD CLOTS STATES HE LAID IN BED ALL DAY--SIMPLY "BECAUSE I DIDN'T HAVE ANYTHING BETTER TO DO" --FEMALE S.O. WORKED ALL DAY STATES HE FELT FINE ALL DAY PT IS DIABETIC--DOES NOT CHECK BLOOD SUGARS ALSO HAS HISTORY OF HTN, HYPERLIPIDEMIA, PERIPHERAL NEUROPATHY, GERD STATES HE HAD A HEART ATTACK A FEW YEARS AGO, BUT NO TREATMENT, NO CARDIAC CATH AND DOES NOT SEE A HOME CARE PHYSICAL THERAPIST--WAS IN [place], PER PT PCP: [facility] Allergies and Home Medications Allergies Coded Allergies: aspirin (Verified Allergy, Mild, 06/07/21) cephalexin (Verified Allergy, Mild, 06/07/21) hydroxyzine (Verified Allergy, Mild, 06/07/21) influenza virus vaccine qs [id number] (36 mos, up) (Verified Allergy, Unknown, 06/07/21) nortriptyline (Verified Allergy, Unknown, 06/07/21) sulfamethoxazole (Verified Allergy, Unknown, 06/07/21) trimethoprim (Verified Allergy, Unknown, 06/07/21) Patient Home Medication List Home Medication List Reviewed: Yes Amitriptyline HCl (Amitriptyline HCl) 25 Mg Tablet, 25 MG PO HS, (Reported) Entered as Reported by: CARLIE SHAW on 04/27/21 1325 Cyclobenzaprine HCl (Cyclobenzaprine HCl) 10 Mg Tablet, 10 MG PO HS PRN for MUSCLE CRAMPS, (Reported) Entered as Reported by: CARLIE SHAW on 04/27/21 1325 Dapagliflozin Propanediol (Farxiga) 10 Mg Tablet, 10 MG PO DAILY Prescribed by: ASHLEIGH FERRELL on 02/18/22 0930 Fluticasone Propionate (Flonase Allergy Relief) 9.9 Ml [place].susp, 1 SPRAY NSEACH DAILY PRN for CONGESTION, (Reported) Entered as Reported by: CARLIE SHAW on 06/07/21 1535 Ibuprofen (Ibuprofen) 200 Mg Capsule, 400-600 MG PO Q8H PRN for PAIN-MILD (1-4), (Reported) Entered as Reported by: CARLIE SHAW on 04/27/21 1326 Lisinopril (Lisinopril) 10 Mg Tablet, 10 MG PO HS, (Reported) Entered as Reported by: CARLIE SHAW on 04/27/21 1325 Lisinopril (Lisinopril) 10 Mg Tablet, 10 MG PO DAILY Prescribed by: JENNIFER GARCIA on 01/06/22 1736 Lisinopril (Lisinopril) 10 Mg Tablet, 10 MG PO DAILY Prescribed by: ASHLEIGH FERRELL on 02/18/22 0930 Metformin HCl (Metformin HCl ER) 500 Mg Tab.er.24, 500 MG PO BID, (Reported) Entered as Reported by: CARLIE SHAW on 04/27/21 1325 Omeprazole (Omeprazole) 20 Mg Tablet.dr, 20 MG PO DAILY, (Reported) Entered as Reported by: CARLIE SHAW on 04/27/21 1325 Ondansetron (Ondansetron Odt) 4 Mg Tab.rapdis, 4 MG PO Q4H PRN for NAUSEA/VOMITING Prescribed by: KETTY OG on 07/21/21 1009 Rivaroxaban (Xarelto) 20 Mg Tablet, 20 MG PO HS, (Reported) Entered as Reported by: CARLIE SHAW on 04/27/21 1325 Review of Systems Review of Systems Constitutional: no symptoms reported EENTM: No Symptoms Reported Respiratory: See HPI Cardiovascular: See HPI Gastrointestinal: No Symptoms Reported Genitourinary: No Symptoms Reported Musculoskeletal: see HPI Skin: no symptoms reported Psychiatric/Neurological: No Symptoms Reported Endocrine: No Symptoms Reported Hematologic/Lymphatic: No Symptoms Reported Past Khpxzxa-Uqwsta-Acprzu Hx Patient Social History Tobacco Use?: Yes (1 PPD) Tobacco type used: Cigarettes Substance use?: No Alcohol Use?: No Pt feels they are or have been: No Seasonal Allergies Seasonal Allergies: No Past Medical History Surgery/Hospitalization HX: T/A, APPY, ANILA, BLADDER, ORTHO, NIDDM, BLOOD CLOTS, HTN, HIGH CHOLESTEROL, CAD, MO, GERD, NEEUROPATHY Surgeries: Yes Adenoidectomy, Appendectomy, Bladder Surgery, Gallbladder, Orthopedic, Tonsillectomy Respiratory: Yes Sleep Apnea, COPD Cardiac: Yes Coronary Artery Disease, Deep Vein Thrombosis, Heart Attack, High Cholesterol, Hypertension Neurological: Yes Neuropathy Genitourinary: No Gastrointestinal: Yes Gastroesophageal Reflux Musculoskeletal: No Endocrine: Yes Diabetes, Non-Insulin dep HEENT: No Cancer: No Psychosocial: No Integumentary: No Blood Disorders: Yes (DVT) Family Medical History Heart Disease, Diabetes, Hypertension, Renal Disease Physical Exam Vital Signs Vital Signs - First Documented 03/04/22 00:15 Temp 36.5 Pulse 77 Resp 18 B/P (MAP) 132/80 (97) Pulse Ox 97 O2 Delivery Room Air Capillary Refill : Less Than 3 Seconds Height, Weight, BMI Height: 5'9" Weight: 260lbs. oz. 117.162770pa; 38.00 BMI Method:Stated General Appearance: No Apparent Distress, WD/WN, Other (HAIR SHAVED ON SIDES/SPANISH STYLE WITH HAIR DYED GREEN) Neck: Normal Inspection Respiratory: Normal Breath Sounds, No Accessory Muscle Use, No Respiratory Distress, Other (MILD STERNAL AND PARASTERNAL TENDERNESS--PALPATION REPRODUCES PAIN) Cardiovascular: Regular Rate, Rhythm, No Edema, No JVD, No Murmur, Normal Peripheral Pulses Gastrointestinal: Non Tender, Soft Extremity: Normal Capillary Refill, Normal Inspection, Normal Range of Motion, Non Tender, No Calf Tenderness, No Pedal Edema Neurologic/Psychiatric: Alert, Oriented x3, No Motor/Sensory Deficits, Normal 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/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, 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 Norm as Tested Skin: Normal Color, Warm/Dry, Tattoos/Piercings (MULTIPLE TATTOOS) Progress/Results/Core Measures Results/Orders Lab Results Laboratory Tests Test 03/04/22 00:23 03/04/22 00:31 Range/Units White Blood Count 11.4 H 4.3-11.0 10^3/uL Red Blood Count 5.81 H 4.30-5.52 10^6/uL Hemoglobin 16.3 13.3-17.7 g/dL Hematocrit 49 40-54 % Mean Corpuscular Volume 85 80-99 fL Mean Corpuscular Hemoglobin 28 25-34 pg Mean Corpuscular Hemoglobin Concent 33 32-36 g/dL Red Cell Distribution Width 13.3 10.0-14.5 % Platelet Count 276 130-400 10^3/uL Mean Platelet Volume 9.9 9.0-12.2 fL Immature Granulocyte % (Auto) 0 % Neutrophils (%) (Auto) 50 42-75 % Lymphocytes (%) (Auto) 37 12-44 % Monocytes (%) (Auto) 9 0-12 % Eosinophils (%) (Auto) 3 0-10 % Basophils (%) (Auto) 1 0-10 % Neutrophils # (Auto) 5.7 1.8-7.8 10^3/uL Lymphocytes # (Auto) 4.2 H 1.0-4.0 10^3/uL Monocytes # (Auto) 1.1 H 0.0-1.0 10^3/uL Eosinophils # (Auto) 0.3 0.0-0.3 10^3/uL Basophils # (Auto) 0.1 0.0-0.1 10^3/uL Immature Granulocyte # (Auto) 0.0 0.0-0.1 10^3/uL Prothrombin Time 16.6 H 12.2-14.7 SEC INR Comment 1.3 0.8-1.4 Activated Partial Thromboplast Time 36 H 24-35 SEC D-Dimer 0.42 0.00-0.49 UG/ML Sodium Level 138 135-145 MMOL/L Potassium Level 4.3 3.6-5.0 MMOL/L Chloride Level 103 98-107 MMOL/L Carbon Dioxide Level 20 L 21-32 MMOL/L Anion Gap 15 H 5-14 MMOL/L Blood Urea Nitrogen 16 7-18 MG/DL Creatinine 0.92 0.60-1.30 MG/DL Estimat Glomerular Filtration Rate 103 BUN/Creatinine Ratio 17 Glucose Level 134 H 70-105 MG/DL Calcium Level 10.4 H 8.5-10.1 MG/DL Corrected Calcium 10.2 H 8.5-10.1 MG/DL Magnesium Level 1.9 1.6-2.4 MG/DL Total Bilirubin 0.5 0.1-1.0 MG/DL Aspartate Amino Transf (AST/SGOT) 13 5-34 U/L Alanine Aminotransferase (ALT/SGPT) 20 0-55 U/L Alkaline Phosphatase 87 40-136 U/L Total Creatine Kinase 92 30-200 U/L Creatine Kinase MB 0.5 <6.6 NG/ML Myoglobin 26.4 10.0-92.0 NG/ML Troponin I < 0.028 <0.028 NG/ML B-Type Natriuretic Peptide < 10.0 <100.0 PG/ML Total Protein 7.4 6.4-8.2 GM/DL Albumin 4.2 3.2-4.5 GM/DL Amylase Level 132 H 25-125 U/L Lipase 60 8-78 U/L Glucometer 133 H 70-110 MG/DL My Orders Orders - NAVID MOSS DO Cbc With Automated Diff (03/04/22 00:16) Magnesium (03/04/22 00:16) Chest 1 View, Ap/Pa Only (03/04/22 00:16) Ekg Tracing (03/04/22 00:16) Comprehensive Metabolic Panel (03/04/22 00:16) Myoglobin Serum (03/04/22 00:16) Protime With Inr (03/04/22 00:16) Partial Thromboplastin Time (03/04/22 00:16) O2 (03/04/22 00:16) Monitor-Rhythm Ecg Trace Only (03/04/22 00:16) Ed Iv/Invasive Line Start (03/04/22 00:16) Creatine Kinase (03/04/22 00:16) Creatine Kinase Mb (03/04/22 00:16) Lipase (03/04/22 00:16) Amylase (03/04/22 00:16) Bnp [place] (03/04/22 00:16) Fibrin Degradation Products (03/04/22 00:16) Troponin I Dayday (03/04/22 00:16) Nitroglycerin 0.4 Mg Btl 25's (Nitrostat (03/04/22 00:30) Accucheck Stat ONCE (03/04/22 00:37) Ct Angio Chest W (03/04/22 01:12) Iohexol Injection (Omnipaque 350 Mg/Ml 1 (03/04/22 02:30) Received Contrast (Hold Metformin- Contr (03/04/22 02:30) Ns (Ivpb) (Sodium Chloride 0.9% Ivpb Bag (03/04/22 02:30) Ketorolac Injection (Toradol Injection) (03/04/22 04:00) Medications Given in ED Current Medications Medications Dose Ordered Sig/Yoel Route Start Time Stop Time Status Last Admin Dose Admin Iohexol 100 ml ONCE ONCE IV 03/04/22 02:30 03/04/22 02:31 DC 03/04/22 02:19 100 ML Ketorolac Tromethamine 30 mg ONCE ONCE IVP 03/04/22 04:00 03/04/22 03:59 DC 03/04/22 03:59 30 MG Sodium Chloride 100 ml ONCE ONCE IV 03/04/22 02:30 03/04/22 02:31 DC 03/04/22 02:19 80 ML Vital Signs/I&O 03/04/22 03/04/22 00:15 03:57 Temp 36.5 36.4 Pulse 77 73 Resp 18 23 B/P (MAP) 132/80 (97) 115/70 Pulse Ox 97 95 O2 Delivery Room Air Room Air Blood Pressure Mean: 97 Progress Progress Note : Progress Note LAYING OUTSTRETCHED, ARMS OVER HEAD SLEPT / RESTED QUIETLY FOR MOST OF ER STAY MARKED DELAY IN OBTAINING CT RESULT 033--SPOKE WITH [facility]--[facility] DID NOT RECEIVE IMAGES--RESENT. GIVEN TORADOL FOR PAIN WITH IMPROVEMENT JUST PRIOR TO DISMISSAL, PT NOW STATES HE HAS AN APPOINTMENT TODAY WITH [facility] FOR FOLLOW UP ON BLOOD CLOT, AND IS SUPPOSED TO BE REFERRED TO A HOME CARE PHYSICAL THERAPIST FOR THIS PROBLEM WELL--NO REFERRAL/ APPOINTMENT MADE AT THIS TIME Initial ECG Impression Date: Mar 04, 2022 Initial ECG Impression Time: 00:20 Initial ECG Rate: 78 Initial ECG Rhythm: Normal Sinus (MUCH ARTIFACT) Initial ECG Impression: Nonspecific Changes Diagnostic Imaging Comments CXR--NO ACUTE PROCESS, PENDING RADIOLOGIST REVIEW CT CHEST ANGIOGRAM--NO P.E. OR ACUTE PROCESS, PER [facility] VIA FAX AT [phone] Reviewed: Reviewed by Me Departure Impression Primary Impression: Chest pain Additional Impressions: Chest wall pain HTN (hypertension) NIDDM GERD (gastroesophageal reflux disease) Disposition: HOME, SELF-CARE Condition: Stable Departure-Patient Inst. Decision time for Depature: 03:49 Referrals: [facility] (PCP/Family) Primary Care Physician Patient Instructions: DASH Diet, Chest Pain, Adult ED, Costochondritis (DC) Add. Discharge Instructions: CONTINUE YOUR REGULAR MEDICATIONS PRESCRIBED TYLENOL NEEDED FOR PAIN FOLLOW UP WITH [facility] TODAY SCHEDULED All discharge instructions reviewed with patient and/or family. Voiced understa nding. NAVID MOSS DO Mar 04, 2022 00:43
[2022-03-04 00:45] LABS: BASOPHILS # (AUTO) 0.1 10^3/uL (0.0-0.1); BASOPHILS % (AUTO) 1 % (0-10); EOSINOPHILS # (AUTO) 0.3 10^3/uL (0.0-0.3); EOSINOPHILS % (AUTO) 3 % (0-10); HEMATOCRIT 49 % (40-54); HEMOGLOBIN 16.3 g/dL (13.3-17.7); LYMPHOCYTES # (AUTO) 4.2 10^3/uL (1.0-4.0); LYMPHOCYTES % (AUTO) 37 % (12-44); MEAN CORPUSCULAR HEMOGLOBIN 28 pg (25-34); MEAN CORPUSCULAR HGB CONC 33 g/dL (32-36); MEAN CORPUSCULAR VOLUME 85 fL (80-99); MEAN PLATELET VOLUME 9.9 fL (9.0-12.2); MONOCYTES # (AUTO) 1.1 10^3/uL (0.0-1.0); MONOCYTES % (AUTO) 9 % (0-12); NEUTROPHILS # (AUTO) 5.7 10^3/uL (1.8-7.8); NEUTROPHILS % (AUTO) 50 % (42-75); PLATELET COUNT 276 10^3/uL (130-400); WHITE BLOOD COUNT 11.4 10^3/uL (4.3-11.0)
[2022-03-04 00:58] LABS: INR 1.3 (0.8-1.4); PROTHROMBIN TIME PATIENT 16.6 SEC (12.2-14.7)
[2022-03-04 01:00] LABS: ALBUMIN 4.2 GM/DL (3.2-4.5)
[2022-03-04 01:01] LABS: POTASSIUM 4.3 MMOL/L (3.6-5.0)
[2022-03-04 01:02] LABS: CALCIUM 10.4 MG/DL (8.5-10.1)
[2022-03-04 01:03] LABS: TOTAL PROTEIN 7.4 GM/DL (6.4-8.2)
[2022-03-04 01:05] LABS: BILIRUBIN,TOTAL 0.5 MG/DL (0.1-1.0)
[2022-03-04 01:07] LABS: CREATININE SERUM 0.92 MG/DL (0.60-1.30)
[2022-03-04 01:10] LABS: MAGNESIUM 1.9 MG/DL (1.6-2.4)
[2022-03-04 01:18] LABS: CREATINE KINASE MB 0.5 NG/ML (<6.6)
[2022-03-04] MEDS ORDERED: HOLD METFORMIN - RECEIVED CONTRAST 20 ML VIAL IV SCH (02:30)
[2022-03-04] MEDS ORDERED: IOHEXOL 350 MG/ML 100 ML (OMNIPAQUE 350) VIAL IV ONE (02:30)
[2022-03-04] MEDS ORDERED: NS 100 ML (IVPB) BAG IV ONE (02:30)
[2022-03-04 03:57] VITALS: BP 115/70
[2022-03-04] MEDS ORDERED: KETOROLAC 30 MG/ML VIAL IVP ONE (04:00)
--- NOTE | 2022-03-04 06:06 | Diagnostic Imaging Report ---
EXAMINATION: Chest 1 view HISTORY: Chest pain COMPARISON: 02/18/2022 FINDINGS: Heart size and pulmonary vasculature are normal. The lungs are clear without consolidation, pleural effusion, or pneumothorax. The osseous structures are intact. IMPRESSION: 1. No acute radiographic abnormality in the chest. Dictated by: Dictated on workstation # [id number]
--- NOTE | 2022-03-04 06:41 | Diagnostic Imaging Report ---
EXAMINATION: CT angiography of the chest. TECHNIQUE: Contrast enhanced thin section helical images were obtained through the chest with intravenous contrast timed for the optimal opacification of the arterial structures per CTA protocol. Post-processing, reconstructions and interpretation of angiographic images of the vessels was performed. 3D MIP reconstructions were performed and reviewed. All CT scans use one or more of the following dose optimizing techniques: automated exposure control, MA and/or KvP adjustment based on a patient size and exam type, or iterative reconstruction. HISTORY: Chest pain and shortness of breath COMPARISON: None available. FINDINGS: Vascular: No filling defects within the pulmonary arteries. Thoracic aorta is normal in caliber. Normal Thyroid: The thyroid is normal. Mediastinum: Heart size is normal without significant pericardial effusion. No suspicious lymphadenopathy. Lungs and airways: The lungs are clear without consolidation, pleural effusion, or pneumothorax. There is atelectasis within the dependent lungs. There is a 0.6 cm right middle lobe pulmonary nodule (series 3 image 70). The airways are normal. Upper abdomen: The subphrenic structures are normal. Musculoskeletal: Degenerative changes of the spine without suspicious osseous lesion or compression fracture. IMPRESSION: 1. No acute abnormality in the chest. No findings of pulmonary embolus. 2. A 0.6 cm right middle lobe pulmonary nodule. Recommend follow-up CT chest in 6-12 months. 3. Pulmonary nodule was not discussed on the preliminary report. Otherwise agree with preliminary interpretation. Dictated by: Dictated on workstation # [id number]
== END 2022-03-04 03:59 | disposition home or self-care (01) ==
LOC: EDUNIT# 00:07 → ER 00:09
DX: R07.89 Other chest pain (principal); I10 Essential (primary) hypertension; E11.9 Type 2 diabetes mellitus without complications; K21.9 Gastro-esophageal reflux disease without esophagitis; F17.210 Nicotine dependence, cigarettes, uncomplicated; Z79.84 Long term (current) use of oral hypoglycemic drugs
CPT/HCPCS: 36415; 71045; 71275; 80053; 82150; 82550; 82553; 82947; 83690; 83735; 83874; 83880; 84484; 85025; 85379; 85610; 85730; 93005; 93041

== ENCOUNTER 2022-03-07 11:31 | Emergency (ER) | payer SELFPAY ==
[~2022-03-07] VITALS: Ht 175.2 cm; Wt 109.7 kg
--- NOTE | 2022-03-07 12:14 | ED General ---
General Chief Complaint: Abdominal/GI Problems Stated Complaint: VOMITTING BLOOD Nursing Triage Note: PT STATES HE HAS BEEN LIGHT HEADED X2 DAYS. PT SATES HE VOMITED X2 TODAY. PT STATES HIS VOMIT HAD A LITTLE BLOOD IN IT. Source of Information: Patient Exam Limitations: No Limitations History of Present Illness Date Seen by Provider: Mar 07, 2022 Time Seen by Provider: 11:35 Initial Comments 46yoM with PMH of recent DVT diagnosis on Xarelto for roughly one week coming in feeling light headed after 2 episodes of vomited streaked with red blood. Came to the ER Friday for a PE workup which was unremarkable. History of GERD and feels similar when he was throwing up earlier. Feels back to his baseline currently. Denies any CP, SOB, abd pain, current nausea, weakness, numbness. Allergies and Home Medications Allergies Coded Allergies: aspirin (Verified Allergy, Mild, 06/07/21) cephalexin (Verified Allergy, Mild, 06/07/21) hydroxyzine (Verified Allergy, Mild, 06/07/21) influenza virus vaccine qs [id number] (36 mos, up) (Verified Allergy, Unknown, 06/07/21) nortriptyline (Verified Allergy, Unknown, 06/07/21) sulfamethoxazole (Verified Allergy, Unknown, 06/07/21) trimethoprim (Verified Allergy, Unknown, 06/07/21) Patient Home Medication List Home Medication List Reviewed: Yes Amitriptyline HCl (Amitriptyline HCl) 25 Mg Tablet, 25 MG PO HS, (Reported) Entered as Reported by: CARLIE SHAW on 04/27/21 1325 Cyclobenzaprine HCl (Cyclobenzaprine HCl) 10 Mg Tablet, 10 MG PO HS PRN for MUSCLE CRAMPS, (Reported) Entered as Reported by: CARLIE SHAW on 04/27/21 1325 Dapagliflozin Propanediol (Farxiga) 10 Mg Tablet, 10 MG PO DAILY Prescribed by: ASHLEIGH FERRELL on 02/18/22 0930 Fluticasone Propionate (Flonase Allergy Relief) 9.9 Ml [place].susp, 1 SPRAY NSEACH DAILY PRN for CONGESTION, (Reported) Entered as Reported by: CARLIE SHAW on 06/07/21 1535 Ibuprofen (Ibuprofen) 200 Mg Capsule, 400-600 MG PO Q8H PRN for PAIN-MILD (1-4), (Reported) Entered as Reported by: CARLIE SHAW on 04/27/21 1326 Lisinopril (Lisinopril) 10 Mg Tablet, 10 MG PO HS, (Reported) Entered as Reported by: CARLIE SHAW on 04/27/21 1325 Lisinopril (Lisinopril) 10 Mg Tablet, 10 MG PO DAILY Prescribed by: JENNIFER GARCIA on 01/06/22 1736 Lisinopril (Lisinopril) 10 Mg Tablet, 10 MG PO DAILY Prescribed by: ASHLEIGH FERRELL on 02/18/22 0930 Metformin HCl (Metformin HCl ER) 500 Mg Tab.er.24, 500 MG PO BID, (Reported) Entered as Reported by: CARLIE SHAW on 04/27/21 1325 Omeprazole (Omeprazole) 20 Mg Tablet.dr, 20 MG PO DAILY, (Reported) Entered as Reported by: CARLIE SHAW on 04/27/21 1325 Ondansetron (Ondansetron Odt) 4 Mg Tab.rapdis, 4 MG PO Q4H PRN for NAUSEA/VOMITING Prescribed by: KETTY OG on 07/21/21 1009 Rivaroxaban (Xarelto) 20 Mg Tablet, 20 MG PO HS, (Reported) Entered as Reported by: CARLIE SHAW on 04/27/21 1325 Review of Systems Review of Systems Constitutional: No chills EENTM: No blurred vision Respiratory: No cough Cardiovascular: No chest pain Gastrointestinal: vomiting Genitourinary: no symptoms reported Musculoskeletal: no symptoms reported Skin: no symptoms reported Psychiatric/Neurological: No Symptoms Reported Hematologic/Lymphatic: No Symptoms Reported Immunological/Allergic: no symptoms reported All Other Systems Reviewed Negative Unless Noted: Yes Past Bowaxio-Prcdvh-Yjcnvb Hx Patient Social History Tobacco Use?: Yes Tobacco type used: Cigarettes Smoking Status: Current Everyday Smoker Substance use?: No Alcohol Use?: No Pt feels they are or have been: No Immunizations Up To Date First/Initial COVID19 Vaccinat: NONE Seasonal Allergies Seasonal Allergies: No Past Medical History Surgery/Hospitalization HX: T/A, APPY, ANILA, BLADDER, ORTHO, NIDDM, BLOOD CLOTS, HTN, HIGH CHOLESTEROL, CAD, MT, GERD, NEEUROPATHY Surgeries: Yes Adenoidectomy, Appendectomy, Bladder Surgery, Gallbladder, Orthopedic, Tonsillectomy Respiratory: Yes Sleep Apnea, COPD Cardiac: Yes Coronary Artery Disease, Deep Vein Thrombosis, Heart Attack, High Cholesterol, Hypertension Neurological: Yes Neuropathy Genitourinary: No Gastrointestinal: Yes Gastroesophageal Reflux Musculoskeletal: No Endocrine: Yes Diabetes, Non-Insulin dep HEENT: No Cancer: No Psychosocial: No Integumentary: No Blood Disorders: Yes (DVT) Family Medical History Heart Disease, Diabetes, Hypertension, Renal Disease Physical Exam Vital Signs Vital Signs - First Documented 03/07/22 11:45 Temp 36.8 Pulse 93 Resp 18 B/P (MAP) 77/ Pulse Ox 96 O2 Delivery Room Air O2 Flow Rate 132.00 Capillary Refill : Less Than 3 Seconds Height, Weight, BMI Height: 5'9" Weight: 260lbs. oz. 117.589381rd; 35.00 BMI Method:Stated General Appearance: No Apparent Distress, WD/WN Eyes: Bilateral Eye Normal Inspection HEENT: PERRL/EOMI, Normal ENT Inspection, Pharynx Normal Neck: Full Range of Motion, Normal Inspection, Non Tender, Supple Respiratory: Chest Non Tender, Lungs Clear, Normal Breath Sounds, No Accessory Muscle Use, No Respiratory Distress Cardiovascular: Regular Rate, Rhythm, No Edema, Normal Peripheral Pulses Gastrointestinal: Normal Bowel Sounds, Non Tender, Soft; No Distended, No Guarding Back: Normal Inspection, No CVA Tenderness, No Vertebral Tenderness Extremity: Normal Capillary Refill, Normal Inspection, Normal Range of Motion, Non Tender, No Calf Tenderness, No Pedal Edema Neurologic/Psychiatric: Alert, No Motor/Sensory Deficits, Normal Mood/Affect Skin: Normal Color, Warm/Dry Lymphatic: No Adenopathy Progress/Results/Core Measures Suspected Sepsis SIRS Temperature: Pulse: 93 Respiratory Rate: 18 Laboratory Tests 03/07/22 11:54: White Blood Count 12.2H Blood Pressure 77 / Mean: Laboratory Tests 03/07/22 11:54: Creatinine 1.02, INR Comment 1.8H, Platelet Count 305, Total Bilirubin 0.5 Results/Orders Lab Results Laboratory Tests Test 03/07/22 11:54 Range/Units White Blood Count 12.2 H 4.3-11.0 10^3/uL Red Blood Count 5.52 4.30-5.52 10^6/uL Hemoglobin 15.6 13.3-17.7 g/dL Hematocrit 46 40-54 % Mean Corpuscular Volume 84 80-99 fL Mean Corpuscular Hemoglobin 28 25-34 pg Mean Corpuscular Hemoglobin Concent 34 32-36 g/dL Red Cell Distribution Width 13.1 10.0-14.5 % Platelet Count 305 130-400 10^3/uL Mean Platelet Volume 10.3 9.0-12.2 fL Immature Granulocyte % (Auto) 0 % Neutrophils (%) (Auto) 63 42-75 % Lymphocytes (%) (Auto) 28 12-44 % Monocytes (%) (Auto) 7 0-12 % Eosinophils (%) (Auto) 2 0-10 % Basophils (%) (Auto) 1 0-10 % Neutrophils # (Auto) 7.6 1.8-7.8 10^3/uL Lymphocytes # (Auto) 3.4 1.0-4.0 10^3/uL Monocytes # (Auto) 0.9 0.0-1.0 10^3/uL Eosinophils # (Auto) 0.2 0.0-0.3 10^3/uL Basophils # (Auto) 0.1 0.0-0.1 10^3/uL Immature Granulocyte # (Auto) 0.0 0.0-0.1 10^3/uL Prothrombin Time 21.6 H 12.2-14.7 SEC INR Comment 1.8 H 0.8-1.4 Activated Partial Thromboplast Time 39 H 24-35 SEC Sodium Level 137 135-145 MMOL/L Potassium Level 4.2 3.6-5.0 MMOL/L Chloride Level 101 98-107 MMOL/L Carbon Dioxide Level 22 21-32 MMOL/L Anion Gap 14 5-14 MMOL/L Blood Urea Nitrogen 22 H 7-18 MG/DL Creatinine 1.02 0.60-1.30 MG/DL Estimat Glomerular Filtration Rate 91 BUN/Creatinine Ratio 22 Glucose Level 168 H 70-105 MG/DL Calcium Level 9.6 8.5-10.1 MG/DL Corrected Calcium 9.4 8.5-10.1 MG/DL Total Bilirubin 0.5 0.1-1.0 MG/DL Aspartate Amino Transf (AST/SGOT) 18 5-34 U/L Alanine Aminotransferase (ALT/SGPT) 28 0-55 U/L Alkaline Phosphatase 80 40-136 U/L Total Protein 7.2 6.4-8.2 GM/DL Albumin 4.3 3.2-4.5 GM/DL My Orders Orders - LUCA MULLIGAN MD Cbc With Automated Diff (03/07/22 12:14) Comprehensive Metabolic Panel (03/07/22 12:14) Protime With Inr (03/07/22 12:14) Partial Thromboplastin Time (03/07/22 12:14) Pantoprazole Injection (Protonix Injecti (03/07/22 12:15) Ondansetron Injection (Zofran Injectio (03/07/22 12:15) Medications Given in ED Current Medications Medications Dose Ordered Sig/Yoel Route Start Time Stop Time Status Last Admin Dose Admin Ondansetron HCl 4 mg ONCE ONCE IVP 03/07/22 12:15 03/07/22 12:16 DC 03/07/22 12:25 4 MG Pantoprazole 40 mg ONCE ONCE IV 03/07/22 12:15 03/07/22 12:16 DC 03/07/22 12:25 40 MG Vital Signs/I&O 03/07/22 11:45 Temp 36.8 Pulse 93 Resp 18 B/P (MAP) 77/ Pulse Ox 96 O2 Delivery Room Air O2 Flow Rate 132.00 Capillary Refill : Less Than 3 Seconds Progress Note : Progress Note 46-year-old male with above history coming in due to blood streaking in his vomit. ABCs were intact and vitals were stable on presentation. Physical exam reassuring including no abdominal tenderness. He had no episodes of vomiting here. Stool is brown with no blood. He says it was a very scant amount of blood mixed in with regular vomit that was clear. I suspect this was a [place]- [place] tear. CBC unremarkable today. No vital sign abnormalities that would be concerning for hemorrhage. I believe he is stable for discharge with outpatient follow-up. He was sent home with strict return precautions. Departure Impression Primary Impression: Hematemesis Qualified Codes: K92.0 - Hematemesis Additional Impression: Katie-[place] tear Disposition: HOME, SELF-CARE Condition: Stable Departure-Patient Inst. Decision time for Depature: 13:03 Referrals: [facility] (PCP/Family) Primary Care Physician Patient Instructions: Gastrointestinal Bleeding (DC) Add. Discharge Instructions: I suspect you have a Katie-[place] tear which is a small tear in your esophagus which causes a small amount of bleeding. If you develop a significant amount of bleeding from your vomit where it is only bright red blood or black then I would want you to come back to the ER. If your stool is completely black or just pure blood as well I would want you to come to the ER. Otherwise take your medications as prescribed. Follow-up with your regular doctor. Nausea medicines were sent to your pharmacy. Scripts Ondansetron (Ondansetron Odt) 4 Mg Tab.rapdis 4 MG PO Q6H PRN for NAUSEA/VOMITING-1ST LINE for 5 Days, #20 TAB Prov: LUCA MULLIGAN MD 03/07/22 Work/School Note: Work Release Form Date Seen in the Emergency Department: Mar 07, 2022 Return to Work: Mar 11, 2022 Restrictions: Return-No Vomiting(24hrs) LUCA MULLIGAN MD Mar 07, 2022 12:14
[2022-03-07] MEDS ORDERED: ONDANSETRON 4 MG/2 ML (SDV) Z0FRAN IVP ONE (12:15)
[2022-03-07] MEDS ORDERED: PANTOPRAZOLE 40 MG (PROTONIX) VIAL IV ONE (12:15)
[2022-03-07 12:21] LABS: BASOPHILS # (AUTO) 0.1 10^3/uL (0.0-0.1); BASOPHILS % (AUTO) 1 % (0-10); EOSINOPHILS # (AUTO) 0.2 10^3/uL (0.0-0.3); EOSINOPHILS % (AUTO) 2 % (0-10); HEMATOCRIT 46 % (40-54); HEMOGLOBIN 15.6 g/dL (13.3-17.7); LYMPHOCYTES # (AUTO) 3.4 10^3/uL (1.0-4.0); LYMPHOCYTES % (AUTO) 28 % (12-44); MEAN CORPUSCULAR HEMOGLOBIN 28 pg (25-34); MEAN CORPUSCULAR HGB CONC 34 g/dL (32-36); MEAN CORPUSCULAR VOLUME 84 fL (80-99); MEAN PLATELET VOLUME 10.3 fL (9.0-12.2); MONOCYTES # (AUTO) 0.9 10^3/uL (0.0-1.0); MONOCYTES % (AUTO) 7 % (0-12); NEUTROPHILS # (AUTO) 7.6 10^3/uL (1.8-7.8); NEUTROPHILS % (AUTO) 63 % (42-75); PLATELET COUNT 305 10^3/uL (130-400); WHITE BLOOD COUNT 12.2 10^3/uL (4.3-11.0)
[2022-03-07 12:25] LABS: ALBUMIN 4.3 GM/DL (3.2-4.5); POTASSIUM 4.2 MMOL/L (3.6-5.0)
[2022-03-07 12:26] LABS: CALCIUM 9.6 MG/DL (8.5-10.1); INR 1.8 (0.8-1.4); PROTHROMBIN TIME PATIENT 21.6 SEC (12.2-14.7)
[2022-03-07 12:28] LABS: TOTAL PROTEIN 7.2 GM/DL (6.4-8.2)
[2022-03-07 12:29] LABS: BILIRUBIN,TOTAL 0.5 MG/DL (0.1-1.0)
[2022-03-07 12:31] LABS: CREATININE SERUM 1.02 MG/DL (0.60-1.30)
[2022-03-07] MEDS ORDERED: ONDA4TAB11 PO (13:04)
[2022-03-07 13:25] VITALS: BP 125/75
== END 2022-03-07 13:25 | disposition home or self-care (01) ==
LOC: EDUNIT# 11:31 → ER 11:33
DX: K22.6 Gastro-esophageal laceration-hemorrhage syndrome (principal); F17.210 Nicotine dependence, cigarettes, uncomplicated; Z86.718 Personal history of other venous thrombosis and embolism; Z79.01 Long term (current) use of anticoagulants
CPT/HCPCS: 36415; 80053; 85025; 85610; 85730; 99283

== ENCOUNTER 2022-06-22 19:30 | Emergency (ER) | payer SELFPAY ==
[~2022-06-22] VITALS: Ht 177 cm; Wt 106.0 kg
[~2022-06-22 19:30] MED LIST changes: +OMEP20TA56 PO; -OMEP20TA7 PO
[2022-06-22] MEDS ORDERED: NS IV 1000 ML 1,000 ML IV STA ×2 (19:45→20:31)
[2022-06-22 19:54] LABS: BASOPHILS # (AUTO) 0.1 10^3/uL (0.0-0.1); BASOPHILS % (AUTO) 0 % (0-10); EOSINOPHILS # (AUTO) 0.3 10^3/uL (0.0-0.3); EOSINOPHILS % (AUTO) 2 % (0-10); HEMATOCRIT 45 % (40-54); HEMOGLOBIN 15.3 g/dL (13.3-17.7); LYMPHOCYTES # (AUTO) 2.2 10^3/uL (1.0-4.0); LYMPHOCYTES % (AUTO) 17 % (12-44); MEAN CORPUSCULAR HEMOGLOBIN 28 pg (25-34); MEAN CORPUSCULAR HGB CONC 34 g/dL (32-36); MEAN CORPUSCULAR VOLUME 83 fL (80-99); MEAN PLATELET VOLUME 9.7 fL (9.0-12.2); MONOCYTES # (AUTO) 1.1 10^3/uL (0.0-1.0); MONOCYTES % (AUTO) 9 % (0-12); NEUTROPHILS # (AUTO) 8.9 10^3/uL (1.8-7.8); NEUTROPHILS % (AUTO) 71 % (42-75); PLATELET COUNT 297 10^3/uL (130-400); WHITE BLOOD COUNT 12.5 10^3/uL (4.3-11.0)
--- NOTE | 2022-06-22 19:55 | ED General ---
General Stated Complaint: HEAT EXHAUSTION,DIZZY,HEADACHE,DIARRHEA Source of Information: Patient Exam Limitations: No Limitations History of Present Illness Date Seen by Provider: Jun 22, 2022 Time Seen by Provider: 19:52 Initial Comments Patient is a 46-year-old male who presents ED with stomach cramping, vomiting, diarrhea lightheaded, dizziness short of breath. Symptoms started two days ago. 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 Patient states yesterday he started feeling sick when he got into his truck. [place] nauseous and vomited. Reports having generalized abdominal cramping with several episodes of diarrhea today. Vomited 4 times today without any blood or mucus. Reports some mild cramping in his arms. Denies of any chest pain, visual changes, unilateral muscle weakness or sensory changes, fever. Not concern for COVID. States he has headache, lightheadedness and dizziness, fever, cough, visual changes, sore throat, ear pain, urinary change. Has been staying hydrated by drinking water. Did work outside today which made it worse. Allergies and Home Medications Allergies Coded Allergies: aspirin (Verified Allergy, Mild, 06/07/21) cephalexin (Verified Allergy, Mild, 06/07/21) hydroxyzine (Verified Allergy, Mild, 06/07/21) influenza virus vaccine qs [id number] (36 mos, up) (Verified Allergy, Unknown, 06/07/21) nortriptyline (Verified Allergy, Unknown, 06/07/21) sulfamethoxazole (Verified Allergy, Unknown, 06/07/21) trimethoprim (Verified Allergy, Unknown, 06/07/21) Patient Home Medication List Home Medication List Reviewed: Yes Amitriptyline HCl (Amitriptyline HCl) 25 Mg Tablet, 25 MG PO HS, (Reported) Entered as Reported by: CARLIE SHAW on 04/27/21 1325 Cyclobenzaprine HCl (Cyclobenzaprine HCl) 10 Mg Tablet, 10 MG PO HS PRN for MUSCLE CRAMPS, (Reported) Entered as Reported by: CARLIE SHAW on 04/27/21 1325 Dapagliflozin Propanediol (Farxiga) 10 Mg Tablet, 10 MG PO DAILY Prescribed by: ASHLEIGH FERRELL on 02/18/22 0930 Fluticasone Propionate (Flonase Allergy Relief) 9.9 Ml [place].susp, 1 SPRAY NSEACH DAILY PRN for CONGESTION, (Reported) Entered as Reported by: CARLIE SHAW on 06/07/21 1535 Ibuprofen (Ibuprofen) 200 Mg Capsule, 400-600 MG PO Q8H PRN for PAIN-MILD (1-4), (Reported) Entered as Reported by: CARLIE SHAW on 04/27/21 1326 Lisinopril (Lisinopril) 10 Mg Tablet, 10 MG PO HS, (Reported) Entered as Reported by: CARLIE SHAW on 04/27/21 1325 Lisinopril (Lisinopril) 10 Mg Tablet, 10 MG PO DAILY Prescribed by: JENNIFER GARCIA on 01/06/22 1736 Lisinopril (Lisinopril) 10 Mg Tablet, 10 MG PO DAILY Prescribed by: ASHLEIGH FERRELL on 02/18/22 0930 Metformin HCl (Metformin HCl ER) 500 Mg Tab.er.24, 500 MG PO BID, (Reported) Entered as Reported by: CARLIE SHAW on 04/27/21 1325 Omeprazole (Omeprazole) 20 Mg Tablet.dr, 20 MG PO DAILY, (Reported) Entered as Reported by: CARLIE SHAW on 04/27/21 1325 Ondansetron (Ondansetron Odt) 4 Mg Tab.rapdis, 4 MG PO Q4H PRN for NAUSEA/VOMITING Prescribed by: KETTY OG on 07/21/21 1009 Ondansetron (Ondansetron Odt) 4 Mg Tab.rapdis, 4 MG PO Q6H PRN for NAUSEA/VOMITING-1ST LINE Prescribed by: LUCA MULLIGAN on 03/07/22 1304 Ondansetron (Ondansetron Odt) 4 Mg Tab.rapdis, 4 MG PO Q4H Prescribed by: VESTA JANG on 06/22/22 2154 Rivaroxaban (Xarelto) 20 Mg Tablet, 20 MG PO HS, (Reported) Entered as Reported by: CARLIE SHAW on 04/27/21 1325 Review of Systems Review of Systems Constitutional: No chills, No diaphoresis, No malaise, No weakness EENTM: No ear pain, No blurred vision, No double vision Respiratory: No cough, No dyspnea on exertion; short of breath Cardiovascular: No chest pain, No edema Gastrointestinal: abdominal pain, diarrhea, nausea, vomiting Genitourinary: No decreased output, No discharge Musculoskeletal: No back pain Skin: No change in color, No change in hair/nails All Other Systems Reviewed Negative Unless Noted: Yes Past Admzgcf-Czppah-Hubhbm Hx Immunizations Up To Date First/Initial COVID19 Vaccinat: NONE Seasonal Allergies Seasonal Allergies: No Past Medical History Surgery/Hospitalization HX: T/A, APPY, ANILA, BLADDER, ORTHO, NIDDM, BLOOD CLOTS, HTN, HIGH CHOLESTEROL, CAD, VA, GERD, NEEUROPATHY Surgeries: Yes Adenoidectomy, Appendectomy, Bladder Surgery, Gallbladder, Orthopedic, Tonsillectomy Respiratory: Yes Sleep Apnea, COPD Cardiac: Yes Coronary Artery Disease, Deep Vein Thrombosis, Heart Attack, High Cholesterol, Hypertension Neurological: Yes Neuropathy Genitourinary: No Gastrointestinal: Yes Gastroesophageal Reflux Musculoskeletal: No Endocrine: Yes Diabetes, Non-Insulin dep HEENT: No Cancer: No Psychosocial: No Integumentary: No Blood Disorders: Yes (DVT) Family Medical History Heart Disease, Diabetes, Hypertension, Renal Disease Physical Exam Vital Signs Vital Signs - First Documented 06/22/22 19:35 Temp 36.8 Pulse 95 Resp 16 Pulse Ox 95 O2 Delivery Room Air Capillary Refill : Height, Weight, BMI Height: 5'9" Weight: 260lbs. oz. 117.262371rp; 35.00 BMI Method:Stated General Appearance: No Apparent Distress, WD/WN Eyes: Bilateral Eye Normal Inspection, Bilateral Eye PERRL, Bilateral Eye EOMI HEENT: PERRL/EOMI, TMs Normal, Normal ENT Inspection, Pharynx Normal Neck: Full Range of Motion, Normal Inspection, Non Tender, Supple Respiratory: Chest Non Tender, Lungs Clear, Normal Breath Sounds, No Accessory Muscle Use, No Respiratory Distress Cardiovascular: Regular Rate, Rhythm, No Edema, No Gallop, No JVD Gastrointestinal: Normal Bowel Sounds, No Organomegaly, No Pulsatile Mass, Soft, Tenderness (Generalized abdominal tenderness) Back: Normal Inspection, No CVA Tenderness, No Vertebral Tenderness Extremity: Normal Capillary Refill, Normal Inspection, Normal Range of Motion, Non Tender Neurologic/Psychiatric: Alert, Oriented x3, No Motor/Sensory Deficits, Normal Mood/Affect, core cutter and reamer II-XII Norm as Tested Focused Exam Lactate Level 06/22/22 19:52: Lactic Acid Level 2.10*H 06/22/22 21:52: Lactic Acid Level 1.13 Lactic Acid Level Laboratory Tests Test 06/22/22 19:52 06/22/22 21:52 Lactic Acid Level 2.10 MMOL/L (0.50-2.00) *H 1.13 MMOL/L (0.50-2.00) Progress/Results/Core Measures Suspected Sepsis SIRS Temperature: Pulse: Respiratory Rate: Laboratory Tests 06/22/22 19:44: White Blood Count 12.5H Blood Pressure / Mean: 06/22/22 19:52: Lactic Acid Level 2.10*H 06/22/22 21:52: Lactic Acid Level 1.13 Laboratory Tests 06/22/22 19:44: Creatinine 1.37H, INR Comment 1.0, Platelet Count 297, Total Bilirubin 0.7 Results/Orders Lab Results Laboratory Tests Test 06/22/22 19:44 06/22/22 19:52 06/22/22 21:22 06/22/22 21:52 Range/Units White Blood Count 12.5 H 4.3-11.0 10^3/uL Red Blood Count 5.44 4.30-5.52 10^6/uL Hemoglobin 15.3 13.3-17.7 g/dL Hematocrit 45 40-54 % Mean Corpuscular Volume 83 80-99 fL Mean Corpuscular Hemoglobin 28 25-34 pg Mean Corpuscular Hemoglobin Concent 34 32-36 g/dL Red Cell Distribution Width 14.0 10.0-14.5 % Platelet Count 297 130-400 10^3/uL Mean Platelet Volume 9.7 9.0-12.2 fL Immature Granulocyte % (Auto) 0 % Neutrophils (%) (Auto) 71 42-75 % Lymphocytes (%) (Auto) 17 12-44 % Monocytes (%) (Auto) 9 0-12 % Eosinophils (%) (Auto) 2 0-10 % Basophils (%) (Auto) 0 0-10 % Neutrophils # (Auto) 8.9 H 1.8-7.8 10^3/uL Lymphocytes # (Auto) 2.2 1.0-4.0 10^3/uL Monocytes # (Auto) 1.1 H 0.0-1.0 10^3/uL Eosinophils # (Auto) 0.3 0.0-0.3 10^3/uL Basophils # (Auto) 0.1 0.0-0.1 10^3/uL Immature Granulocyte # (Auto) 0.0 0.0-0.1 10^3/uL Prothrombin Time 13.7 12.2-14.7 SEC INR Comment 1.0 0.8-1.4 Activated Partial Thromboplast Time 30 24-35 SEC Sodium Level 140 135-145 MMOL/L Potassium Level 4.2 3.6-5.0 MMOL/L Chloride Level 111 H 98-107 MMOL/L Carbon Dioxide Level 15 L 21-32 MMOL/L Anion Gap 14 5-14 MMOL/L Blood Urea Nitrogen 36 H 7-18 MG/DL Creatinine 1.37 H 0.60-1.30 MG/DL Estimat Glomerular Filtration Rate 64 BUN/Creatinine Ratio 26 Glucose Level 160 H 70-105 MG/DL Calcium Level 8.8 8.5-10.1 MG/DL Corrected Calcium 8.4 L 8.5-10.1 MG/DL Total Bilirubin 0.7 0.1-1.0 MG/DL Aspartate Amino Transf (AST/SGOT) 22 5-34 U/L Alanine Aminotransferase (ALT/SGPT) 28 0-55 U/L Alkaline Phosphatase 101 40-136 U/L Total Creatine Kinase 177 30-200 U/L Troponin I < 0.028 <0.028 NG/ML Total Protein 8.0 6.4-8.2 GM/DL Albumin 4.5 3.2-4.5 GM/DL Lipase 81 H 8-78 U/L Lactic Acid Level 2.10 *H 1.13 0.50-2.00 MMOL/L Urine Color YELLOW Urine Clarity CLEAR Urine pH 5.5 5-9 Urine Specific [place] 1.025 H 1.016-1.022 Urine Protein NEGATIVE NEGATIVE Urine Glucose (UA) 2+ H NEGATIVE Urine Ketones NEGATIVE NEGATIVE Urine Nitrite NEGATIVE NEGATIVE Urine Bilirubin NEGATIVE NEGATIVE Urine Urobilinogen 0.2 < = 1.0 MG/DL Urine Leukocyte Esterase NEGATIVE NEGATIVE Urine RBC (Auto) NEGATIVE NEGATIVE Urine RBC NONE /HPF Urine WBC RARE /HPF Urine Squamous Epithelial Cells RARE /HPF Urine Crystals NONE /LPF Urine Bacteria TRACE /HPF Urine Casts PRESENT /LPF Urine Hyaline Casts 2-5 H /LPF Urine Mucus NEGATIVE /LPF Urine Culture Indicated NO My Orders Orders - LUCA CHAIDEZ PA Cbc With Automated Diff (06/22/22 19:45) Comprehensive Metabolic Panel (06/22/22 19:45) Lipase (06/22/22 19:45) Troponin I [place] (06/22/22 19:45) Creatine Kinase (06/22/22 19:45) Urinalysis (06/22/22 19:45) Lactic Acid Analyzer (06/22/22 19:45) Ekg Tracing (06/22/22 19:45) Ns Iv 1000 Ml (Sodium Chloride 0.9%) (06/22/22 19:45) Partial Thromboplastin Time (06/22/22 19:45) Protime With Inr (06/22/22 19:45) Chest 1 View, Ap/Pa Only (06/22/22 19:52) Ondansetron Injection (Zofran Injectio (06/22/22 20:00) Ct Abdomen/Pelvis W (06/22/22 20:00) Iohexol Injection (Omnipaque 350 Mg/Ml 1 (06/22/22 20:15) Received Contrast (Hold Metformin- Contr (06/22/22 20:15) Ns (Ivpb) (Sodium Chloride 0.9% Ivpb Bag (06/22/22 20:15) Ns Iv 1000 Ml (Sodium Chloride 0.9%) (06/22/22 20:31) Ns Iv 1000 Ml (Sodium Chloride 0.9%) (06/22/22 20:33) Medications Given in ED Current Medications Medications Dose Ordered Sig/Yoel Route Start Time Stop Time Status Last Admin Dose Admin Iohexol 100 ml ONCE ONCE IV 06/22/22 20:15 06/22/22 20:16 DC 06/22/22 20:37 100 ML Ondansetron HCl 4 mg ONCE ONCE IVP 06/22/22 20:00 06/22/22 20:01 DC 06/22/22 20:16 4 MG Sodium Chloride 100 ml ONCE ONCE IV 06/22/22 20:15 06/22/22 20:16 DC 06/22/22 20:37 80 ML Vital Signs/I&O 06/22/22 19:35 Temp 36.8 Pulse 95 Resp 16 B/P (MAP) Pulse Ox 95 O2 Delivery Room Air Capillary Refill : ECG Comment Sinus rhythm, left anterior fascicular block, 97 bpm, QRS duration 110 MS, QTc 398 MS Departure Communication (PCP) Patient presents to ED with for concern for heat exhaustion. Patient neuro exam unremarkable. Patient is afebrile. Patient has been working outside in the heat. 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 Started feeling sick a few days ago. Reports generalized abdominal pain with vomiting with lightheadedness, dizziness. Patient with slight elevated white blood count. He states he does have a dental infection in his right upper tooth currently on penicillin. Patient was given a liter of fluid. Acute kidney insufficiency noted. Creatinine 1.37 and BUN 36. Patient was given a second liter fluid concern for dehydration. Normal CK. Does not appear in rhabdomyolysis. Does not appear septic. lactic acid 2.10 with improvement after recheck. Appears to be more secondary to dehydration. Patient vomited here but felt much better after Zofran. Tolerant p.o. fluids. CT abdomen pelvis negative for acute abnormality possibly constipated. No evidence of obstruction. chest x-ray was negative for pneumonia. Cardiac work-up unremarkable. Patient feeling much better at this time. Recommend continue oral hydration. He is afebrile. No evidence of strokelike symptoms. If any worsening symptoms return back to ED for further evaluation Impression Primary Impression: Heat exhaustion Disposition: 01 HOME, SELF-CARE Condition: Stable Departure-Patient Inst. Decision time for Depature: 21:54 Referrals: [facility] (PCP/Family) Primary Care Physician Patient Instructions: Heat Exhaustion and Heat Stroke (DC) Scripts Ondansetron (Ondansetron Odt) 4 Mg Tab.rapdis 4 MG PO Q4H, #8 TAB Prov: LUCA CHAIDEZ 06/22/22 Work/School Note: Work Release Form Date Seen in the Emergency Department: Jun 22, 2022 Return to Work: Jun 25, 2022 LUCA CHAIDEZ Jun 22, 2022 19:54
[2022-06-22] MEDS ORDERED: ONDANSETRON 4 MG/2 ML (SDV) Z0FRAN IVP ONE (20:00)
[2022-06-22 20:06] LABS: PROTHROMBIN TIME PATIENT 13.7 SEC (12.2-14.7)
[2022-06-22 20:15] LABS: ALANINE AMINOTRANSFERASE 28 U/L (0-55); ALBUMIN 4.5 GM/DL (3.2-4.5); ALKALINE PHOSPHATASE 101 U/L (40-136); BILIRUBIN,TOTAL 0.7 MG/DL (0.1-1.0); BUN/CREATININE RATIO 26; CALCIUM 8.8 MG/DL (8.5-10.1); CARBON DIOXIDE 15 MMOL/L (21-32); CHLORIDE 111 MMOL/L (98-107); CREATINE KINASE 177 U/L (30-200); CREATININE SERUM 1.37 MG/DL (0.60-1.30); GFR ESTIMATED 64; GLUCOSE 160 MG/DL (70-105); LIPASE 81 U/L (8-78); POTASSIUM 4.2 MMOL/L (3.6-5.0); SODIUM 140 MMOL/L (135-145)
[2022-06-22] MEDS ORDERED: HOLD METFORMIN - RECEIVED CONTRAST 20 ML VIAL IV SCH (20:15)
[2022-06-22] MEDS ORDERED: IOHEXOL 350 MG/ML 100 ML (OMNIPAQUE 350) VIAL IV ONE (20:15)
[2022-06-22] MEDS ORDERED: NS 100 ML (IVPB) BAG IV ONE (20:15)
[2022-06-22] MEDS ORDERED: NS IV 1000 ML 1,000 ML ONE (20:33)
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
--- NOTE | 2022-06-22 21:28 | Diagnostic Imaging Report ---
INDICATION: SOB COMPARISON: 03/04/2022. FINDINGS: Single frontal view of the chest demonstrates normal heart size and pulmonary vascularity. The lungs show low inspiratory volumes, but are otherwise clear. No large pleural effusion or pneumothorax is seen. The visualized osseous structures show no acute abnormalities. IMPRESSION: No acute cardiopulmonary process. Dictated by: Dictated on workstation # [id number]
[2022-06-22 21:30] LABS: BILIRUBIN,URINE NEGATIVE (NEGATIVE); CLARITY,URINE CLEAR; COLOR,URINE YELLOW; GLUCOSE, URINE (UA) 2+ (NEGATIVE); KETONES,URINE NEGATIVE (NEGATIVE); LEUKOCYTE ESTERASE ,URINE NEGATIVE (NEGATIVE); NITRITE,URINE NEGATIVE (NEGATIVE); PH,URINE 5.5 (5-9); PROTEIN,URINE NEGATIVE (NEGATIVE)
[2022-06-22 21:45] LABS: BACTERIA,URINE TRACE /HPF; SQUAMOUS EPITHELIAL CELL,UR RARE /HPF; WBC,URINE RARE /HPF
[2022-06-22] MEDS ORDERED: ONDA4TAB11 PO (21:54)
[2022-06-22 22:00] VITALS: BP 142/75
== END 2022-06-22 22:00 | disposition home or self-care (01) ==
LOC: EDUNIT# 19:30 → ER 19:33
DX: T67.5XXA Heat exhaustion, unspecified, initial encounter (principal); N28.9 Disorder of kidney and ureter, unspecified; K04.7 Periapical abscess without sinus; D72.829 Elevated white blood cell count, unspecified; Z28.310 Unvaccinated for COVID-19
CPT/HCPCS: 36415; 71045; 74177; 80053; 81000; 82550; 83605; 83690; 84484; 85025; 85610; 85730; 93005

== ENCOUNTER 2022-08-11 17:04 | Emergency (ER) | payer SELFPAY ==
[~2022-08-11] VITALS: Ht 175.3 cm; Wt 106.6 kg
[2022-08-11] MEDS ORDERED: ACETAMINOPHEN 325 MG TABLET PO STA (17:11)
[2022-08-11 17:24] LABS: BASOPHILS # (AUTO) 0.1 10^3/uL (0.0-0.1); BASOPHILS % (AUTO) 1 % (0-10); EOSINOPHILS # (AUTO) 0.3 10^3/uL (0.0-0.3); EOSINOPHILS % (AUTO) 3 % (0-10); HEMATOCRIT 42 % (40-54); HEMOGLOBIN 14.1 g/dL (13.3-17.7); LYMPHOCYTES # (AUTO) 2.9 10^3/uL (1.0-4.0); LYMPHOCYTES % (AUTO) 32 % (12-44); MEAN CORPUSCULAR HEMOGLOBIN 28 pg (25-34); MEAN CORPUSCULAR HGB CONC 34 g/dL (32-36); MEAN CORPUSCULAR VOLUME 83 fL (80-99); MEAN PLATELET VOLUME 9.9 fL (9.0-12.2); MONOCYTES # (AUTO) 0.9 10^3/uL (0.0-1.0); MONOCYTES % (AUTO) 10 % (0-12); NEUTROPHILS # (AUTO) 4.9 10^3/uL (1.8-7.8); NEUTROPHILS % (AUTO) 55 % (42-75); PLATELET COUNT 259 10^3/uL (130-400); WHITE BLOOD COUNT 9.1 10^3/uL (4.3-11.0)
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
[2022-08-11 17:32] LABS: ALBUMIN 4.1 GM/DL (3.2-4.5)
[2022-08-11 17:34] LABS: CALCIUM 9.6 MG/DL (8.5-10.1)
[2022-08-11 17:35] LABS: PROTHROMBIN TIME PATIENT 13.1 SEC (12.2-14.7); TOTAL PROTEIN 7.4 GM/DL (6.4-8.2)
[2022-08-11 17:37] LABS: BILIRUBIN,TOTAL 0.4 MG/DL (0.1-1.0)
[2022-08-11 17:39] LABS: CREATININE SERUM 0.83 MG/DL (0.60-1.30)
[2022-08-11 17:42] LABS: MAGNESIUM 1.8 MG/DL (1.6-2.4)
[2022-08-11] MEDS ORDERED: NITROGLYCERIN 0.4 MG SL TABS BTL 25'S SL STA (17:46)
[2022-08-11] MEDS ORDERED: NS IV 500 ML 500 ML IV ONE (18:00)
[2022-08-11 18:30] VITALS: BP 140/91
== END 2022-08-11 18:30 | disposition home or self-care (01) ==
LOC: EDUNIT# 17:04 → ER 17:06
DX: R07.89 Other chest pain (principal); E11.40 Type 2 diabetes mellitus with diabetic neuropathy, unspecified; I25.10 Atherosclerotic heart disease of native coronary artery without angina pectoris; F17.290 Nicotine dependence, other tobacco product, uncomplicated; Z86.718 Personal history of other venous thrombosis and embolism; Z79.84 Long term (current) use of oral hypoglycemic drugs; Z79.01 Long term (current) use of anticoagulants; Z28.310 Unvaccinated for COVID-19; W86.8XXA Exposure to other electric current, initial encounter; Y92.59 Other trade areas as the place of occurrence of the external cause; Y99.0 Civilian activity done for income or pay
CPT/HCPCS: 36415; 71045; 80053; 82947; 83735; 83874; 83880; 84484; 85025; 85610; 85730; 93005; 93041

== ENCOUNTER 2022-08-13 09:56 | Emergency (ER) | payer SELFPAY ==
[~2022-08-13] VITALS: Ht 175 cm; Wt 107.0 kg
[2022-08-13 10:11] LABS: BASOPHILS # (AUTO) 0.1 10^3/uL (0.0-0.1); BASOPHILS % (AUTO) 1 % (0-10); EOSINOPHILS # (AUTO) 0.3 10^3/uL (0.0-0.3); EOSINOPHILS % (AUTO) 3 % (0-10); HEMATOCRIT 44 % (40-54); HEMOGLOBIN 14.9 g/dL (13.3-17.7); LYMPHOCYTES # (AUTO) 2.3 10^3/uL (1.0-4.0); LYMPHOCYTES % (AUTO) 23 % (12-44); MEAN CORPUSCULAR HEMOGLOBIN 28 pg (25-34); MEAN CORPUSCULAR HGB CONC 34 g/dL (32-36); MEAN CORPUSCULAR VOLUME 84 fL (80-99); MEAN PLATELET VOLUME 9.5 fL (9.0-12.2); MONOCYTES # (AUTO) 0.8 10^3/uL (0.0-1.0); MONOCYTES % (AUTO) 8 % (0-12); NEUTROPHILS # (AUTO) 6.8 10^3/uL (1.8-7.8); NEUTROPHILS % (AUTO) 66 % (42-75); PLATELET COUNT 255 10^3/uL (130-400); WHITE BLOOD COUNT 10.3 10^3/uL (4.3-11.0)
[2022-08-13 10:35] LABS: POTASSIUM 3.9 MMOL/L (3.6-5.0)
[2022-08-13 10:36] LABS: CALCIUM 8.9 MG/DL (8.5-10.1)
[2022-08-13 10:41] LABS: CREATININE SERUM 0.84 MG/DL (0.60-1.30)
--- NOTE | 2022-08-13 10:55 | Diagnostic Imaging Report ---
PROCEDURE: CT head and CT cervical spine without contrast. TECHNIQUE: Multiple contiguous axial images were obtained through the brain and cervical spine without the use of intravenous contrast. Sagittal and coronal reformations through the cervical spine were then performed. Auto Exposure Controls were utilized during the CT exam to meet ALARA standards for radiation dose reduction. INDICATION: Dizziness, blurred vision with head and neck pain. CT HEAD: CT images of the head were obtained. FINDINGS: Ventricles and sulci are within normal limits for size. There is no intracranial hemorrhage identified. There is faint asymmetric low density in the region of the anterior limb of the right internal capsule. This demonstrates no abnormal mass effect. Calvarium is intact. There is poor dentition without evidence of acute sinus disease. Mastoid air cells and middle ear cavities are clear. IMPRESSION: Questionable faint low density in the anterior limb of the right internal capsule. If there is continued clinical concern, MRI has greater sensitivity for acute ischemia. CT CERVICAL SPINE: Multiple contiguous axial CT images of the cervical spine were obtained with sagittal and coronal reformatted images produced. FINDINGS: There is loss of normal cervical lordosis. Vertebral body heights and disc spaces are maintained. Prevertebral soft tissues are unremarkable, and there is no evidence of paraspinous hematoma. IMPRESSION: Loss of normal cervical lordosis which may be due to positioning or muscle spasm. There is, otherwise, no CT evidence of acute cervical spinal abnormality. Dictated by: Dictated on workstation # [id number]
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
[2022-08-13 13:58] VITALS: BP 144/93
== END 2022-08-13 14:07 | disposition home or self-care (01) ==
LOC: EDUNIT# 09:56 → ER 09:58
DX: T75.4XXA Electrocution, initial encounter (principal); R51.9 Headache, unspecified; F17.290 Nicotine dependence, other tobacco product, uncomplicated; Z28.310 Unvaccinated for COVID-19
CPT/HCPCS: 36415; 70450; 70551; 72125; 80048; 82550; 83874; 85025